=== PATIENT | female | born 1970 | race Caucasian/White ===

== ENCOUNTER 2017-09-25 06:34 | Emergency (ER) | payer BC ==
--- OUTSIDE RECORDS SUMMARY | 2017-09-25 06:36 | XMS REPORT | Clinical Summary ---
:1970 Author Organization [facility] Address [address] [place] [address] Phone Care Team Providers Name Role Phone Unavailable Primary Care Provider Unavailable Allergies No Known Allergies Current Medications Prescription Sig. Disp. Refills Start Date End Date Status buPROPion (WELLBUTRIN Take 150 mg by Active XL) 150 MG 24 hr mouth daily. tablet LINACLOTIDE (LINZESS Take 145 mcg by Active ORAL) mouth . omega-3 fatty Take 2 g by Active acids-fish oil mouth 2 (two) 340-1,000 mg Cap per times daily . capsule pregabalin (LYRICA) 75 Take 75 mg by Active MG capsule mouth 2 (two) times daily. diphenhydrAMINE Take 25 mg by Active (BENADRYL) 25 mg mouth nightly. tablet diazepam (VALIUM) 2 MG Take 2 mg by Active tablet mouth every 8 (eight) hours as needed for Anxiety. ALPRAZolam (XANAX) 0.5 Take 0.5 mg by Active MG tablet mouth every night as needed for Anxiety. cyclobenzaprine Take 10 mg by Active (FLEXERIL) 5 MG tablet mouth 2 (two) times daily as needed for Muscle spasms . CANAGLIFLOZIN Take 300 mg by Active (INVOKANA ORAL) mouth . fenofibrate (TRICOR) Take 145 mg by Active 145 MG tablet mouth daily. glyBURIDE-metFORMIN Take 4 tablets Active (GLUCOVANCE) 2.5-500 by mouth mg per tablet nightly. oxyCODONE-acetaminophe Take 2 tablets Active n (PERCOCET) 10-325 mg by mouth every 4 per tablet (four) hours as needed for Pain. rizatriptan (MAXALT) Take 5 mg by Active 10 MG tablet mouth once as needed for Headaches or Migraine Do NOT exceed thirty (30) mg in 24 hours. . zolpidem (AMBIEN) 10 Take 10 mg by Active mg tablet mouth every night as needed for Insomnia. calcium Take 1 tablet by Active carbonate-vitamin D2 mouth daily. 500 mg(1,250mg) -200 unit tablet clopidogrel (PLAVIX) Take 1 tablet 30 tablet 3 03/23/2016 03/23/2017 75 mg tablet (75 mg total) by mouth daily. Active Problems Problem Noted Date Chronic pain 03/20/2016 Back pain 03/20/2016 HTN (hypertension) 03/20/2016 Smoking 03/20/2016 Dyslipidemia 03/20/2016 Constipation 03/20/2016 Nausea 03/20/2016 STEMI (ST elevation myocardial infarction) ([facility]) 03/19/2016 Social History Tobacco Use Types Packs/Day Years Used Date Smoker, Current Status Unknown Cigarettes 1 15 Tobacco Cessation: Ready to Quit: No Sex Assigned at Date Recorded Not on file Last Filed Vital Signs Not on file Plan of Treatment Not on file Implants Implanted Type Area Setter Up Device Expiration Model / Identifier Date Serial / Lot Synergy Stents-C N/A: [employer] 12/07/2016 [id number] / Implanted: Qty: 1 on 03/19/2016 by Sabas Mcintosh MD [facility] Coronary SCIENTIFIC / [id number] Results VASCULAR DIAGRAM -SCAN (10/15/2016 2:40 PM)after 09/24/2016
[2017-09-25] MEDS ORDERED: FENTANYL CITR 100 MCG/2 ML ONE (07:07)
--- NOTE | 2017-09-25 07:18 | EDPHYS ---
Physician Documentation [facility] Name: Emilia Roman Age: 47 yrs Sex: Female : 1970 Arrival Date: 09/25/2017 Time: 06:36 Bed 17 Private MD: Rogelio Lyons ED Physician Daniel Chau HPI: 09/25 07:10 This 47 yrs old Female presents to ER via Ambulatory with complaints of calf snw muscle pain. 07:10 Onset: The symptoms/episode began/occurred suddenly, yesterday, and became persistent. snw Associated signs and symptoms: Pertinent positives: pain to right calf after playing tennis. Pt states she felt like someone hit her with a rock to the top of right calf as she turned. Modifying factors: The patient symptoms are alleviated by nothing. The patient has not experienced similar symptoms in the past. The patient has not recently seen a physician. hx of back surgery, Vincent still + bilaterally. Has OxyContin at home. 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 - bb Historical: - Allergies: 06:55 No Known Allergies; bb - Home Meds: 06:55 aspirin 81 mg Oral chew 1 tab once daily [Active]; Lipitor 20 mg Oral tab 1 tab once bb daily [Active]; Wellbutrin 75 mg Oral tab 1 tab daily [Active]; Plavix 75 mg Oral tab 1 tab once daily [Active]; fenofibrate 150 mg oral cap 1 cap once daily [Active]; Glucovance 2.5-500 mg Oral tab 1 tab daily [Active]; lisinopril 2.5 mg Oral tab 1 tab once daily [Active]; metoprolol tartrate 25 mg Oral tab [Active]; oxycodone 20 mg Oral TR12 1 tab four times a day [Active]; [place]-3 oral oral [Active]; Protonix 40 mg Oral TbEC 1 tab once daily [Active]; Maxalt 10 mg oral tab 1 tab as needed [Active]; Invokana 300 mg oral tab 1 tab once daily [Active]; Vit D daily [Active]; Stool Softener oral oral [Active]; - PMHx: 06:55 chronic back pain; Diabetes; Hyperlipidemia; Hypertension; Tachycardia; bb - PSHx: 06:55 Tubal ligation; Appendectomy; Cholecystectomy; back surgery; uterine ablation; Heart bb stents; - Immunization history:: Adult Immunizations up to date. - Social history:: Smoking status: Patient/guardian denies using tobacco, Patient/guardian denies using alcohol, street drugs, Smoking status: . - Ebola Screening: : Patient negative for fever greater than or equal to 101.5 degrees Fahrenheit, and additional compatible Ebola Virus Disease symptoms Patient denies exposure to infectious person No symptoms or risks identified at this time. ROS: 07:10 Constitutional: Negative for fever, chills, and weight loss, Eyes: Negative for injury, snw pain, redness, and discharge, ENT: Negative for injury, pain, and discharge, Neck: Negative for injury, pain, and swelling, Cardiovascular: Negative for chest pain, palpitations, and edema, Respiratory: Negative for shortness of breath, cough, wheezing, and pleuritic chest pain, Abdomen/GI: Negative for abdominal pain, nausea, vomiting, diarrhea, and constipation, Back: Negative for injury and pain, : Negative for injury, bleeding, discharge, and swelling, Skin: Negative for injury, rash, and discoloration, Neuro: Negative for headache, weakness, numbness, tingling, and seizure. 07:10 MS/extremity: Positive for pain, swelling, of the right calf. Exam: 07:04 Constitutional: This is a well developed, well nourished patient who is awake, alert, snw and in no acute distress. Head/Face: Normocephalic, atraumatic. Eyes: Pupils equal round and reactive to light, extra-ocular motions intact. Lids and lashes normal. Conjunctiva and sclera are non-icteric and not injected. Cornea within normal limits. Periorbital areas with no swelling, redness, or edema. ENT: Nares patent. No nasal discharge, no septal abnormalities noted. Tympanic membranes are normal and external auditory canals are clear. Oropharynx with no redness, swelling, or masses, exudates, or evidence of obstruction, uvula midline. Mucous membranes moist. Neck: Trachea midline, no thyromegaly or masses palpated, and no cervical lymphadenopathy. Supple, full range of motion without nuchal rigidity, or vertebral point tenderness. No Meningismus. Chest/axilla: Normal chest wall appearance and motion. Nontender with no deformity. No lesions are appreciated. Cardiovascular: Regular rate and rhythm with a normal S1 and S2. No gallops, murmurs, or rubs. Normal PMI, no JVD. No pulse deficits. Respiratory: Lungs have equal breath sounds bilaterally, clear to auscultation and percussion. No rales, rhonchi or wheezes noted. No increased work of breathing, no retractions or nasal flaring. Abdomen/GI: Soft, non-tender, with normal bowel sounds. No distension or tympany. No guarding or rebound. No evidence of tenderness throughout. Back: No spinal tenderness. No costovertebral tenderness. Full range of motion. Skin: Warm, dry with normal turgor. Normal color with no rashes, no lesions, and no evidence of cellulitis. Neuro: Awake and alert, GCS 15, oriented to person, place, time, and situation. Cranial nerves II-XII grossly intact. Motor strength 5/5 in all extremities. Sensory grossly intact. Cerebellar exam normal. Normal gait. 07:04 Musculoskeletal/extremity: Extremities: grossly normal except: noted in the right calf: pain, tenderness, ROM: intact in all extremities, Circulation is intact in all extremities. Sensation intact. Compartment Syndrome exam of affected extremity: is normal. Calves: are tender, pt states she felt as if someone hit her with a rock to her calf. Vital Signs: 06:55 BP 129 / 90; Pulse 86; Resp 18 S; Temp 97.9(O); Pulse Ox 98% on R/A; Weight 79.38 kg bb (R); Height 5 ft. 9 in. (175.26 cm) (R); Pain 6/10; 07:30 BP 110 / 82; Pulse 78; Resp 16; Pulse Ox 98% on R/A; Pain 5/10; em 06:55 Body Mass Index 25.84 (79.38 kg, 175.26 cm) bb MDM: 06:48 Patient medically screened. snw 07:21 Data reviewed: vital signs, nurses notes. Data interpreted: Pulse oximetry: on room air snw is 98 %. Interpretation: normal. Counseling: I had a detailed discussion with the patient and/or guardian regarding: the historical points, exam findings, and any diagnostic results supporting the discharge/admit diagnosis, the presence of at least one elevated blood pressure reading (>120/80) during this emergency department visit, the need for outpatient follow up, to return to the emergency department if symptoms worsen or persist or if there are any questions or concerns that arise at home. Special discussion: I have referred the patient to see his PCP for further evaluation of high blood pressure. Based on the history and exam findings, there is no indication for further emergent testing or inpatient evaluation. I discussed with the patient/guardian the need to see the orthopedic surgeon for further evaluation of the symptoms. I discussed with the patient/guardian the need to see the primary care provider for further evaluation of the symptoms. 09/25 06:58 Order name: Greg Wrap; Complete Time: 07:40 snw 09/25 06:58 Order name: Knee Immobilizer; Complete Time: 07:40 snw 09/25 07:19 Order name: Crutches; Complete Time: 07:40 snw 09/25 07:19 Order name: Crutch Training; Complete Time: 07:40 snw Administered Medications: 07:16 Drug: fentaNYL (PF) 50 mcg Route: IM; Site: left deltoid; em 07:40 Follow up: Response: No adverse reaction; Pain is decreased em Disposition: 20:33 Co-signature as Attending Physician, Daniel Chau MD. rn Disposition: 09/25/17 07:18 Discharged to Home. Impression: Muscle spasm of calf, Achilles tendinitis, right leg. - Condition is Stable. - Discharge Instructions: Elastic Bandage and RICE, Achilles Tendinitis, Partial (Incomplete) Achilles Tendon Rupture, Crutch Use, Muscle Cramps and Spasms, Heat Therapy. - Prescriptions for Mobic 7.5 mg Oral Tablet - take 1 tablet by ORAL route once daily take with food; 20 tablet. - Medication Reconciliation Form, Thank You Letter, Antibiotic Education, Prescription Opioid Use form. - Follow up: Rogelio Lyons MD; When: 1 - 2 days; Reason: Recheck today's complaints, Continuance of care, Re-evaluation by your physician. Follow up: Gregory Tucker MD; When: 2 - 3 days; Reason: Recheck today's complaints, Continuance of care. Signatures: Consuelo Nguyen, FRETTED STRING INSTRUMENT REPAIRER-C FRETTED STRING INSTRUMENT REPAIRER-Csnw Ac Castorena, ASSISTANT PROFESSOR OF ARCHAEOLOGY ASSISTANT PROFESSOR OF ARCHAEOLOGY em Serenity Olivo, RN MARCIO bb Chau, Daniel, MD MD rn Sheehan, Crissy, RN RN bs1 Corrections: (The following items were deleted from the chart) 07:47 07:18 09/25/2017 07:18 Discharged to Home. Impression: Muscle spasm of calf; Achilles em tendinitis, right leg. Condition is Stable. Forms are Medication Reconciliation Form, Thank You Letter, Antibiotic Education, Prescription Opioid Use. Follow up: Rogelio Lyons; When: 1 - 2 days; Reason: Recheck today's complaints, Continuance of care, Re-evaluation by your physician. Follow up: Gregory Tucker; When: 2 - 3 days; Reason: Recheck today's complaints, Continuance of care. snw
--- NOTE | 2017-09-25 07:18 | ER ---
Nurse's Notes [facility] Name: Emilia Roman Age: 47 yrs Sex: Female : 1970 Arrival Date: 09/25/2017 Time: 06:36 Bed 17 Private MD: Rogelio Lyons Diagnosis: Muscle spasm of calf;Achilles tendinitis, right leg Presentation: 09/25 06:47 Presenting complaint: Patient states: she was playing tennis with her last bb night and thinks she tore her right calf muscle, at the time it felt like someone hit her in the calf, she is having pain to right calf 09/26. Transition of care: patient was not received from another setting of care. Onset of symptoms was September 24, 2017. Risk Assessment: Do you want to hurt yourself or someone else? Patient reports no desire to harm self or others. Initial Sepsis Screen: Does the patient meet any 2 criteria? No. Patient's initial sepsis screen is negative. Does the patient have a suspected source of infection? No. Patient's initial sepsis screen is negative. Care prior to arrival: None. 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 - bb Historical: - Allergies: 06:55 No Known Allergies; bb - Home Meds: 06:55 aspirin 81 mg Oral chew 1 tab once daily [Active]; Lipitor 20 mg Oral tab 1 tab once bb daily [Active]; Wellbutrin 75 mg Oral tab 1 tab daily [Active]; Plavix 75 mg Oral tab 1 tab once daily [Active]; fenofibrate 150 mg oral cap 1 cap once daily [Active]; Glucovance 2.5-500 mg Oral tab 1 tab daily [Active]; lisinopril 2.5 mg Oral tab 1 tab once daily [Active]; metoprolol tartrate 25 mg Oral tab [Active]; oxycodone 20 mg Oral TR12 1 tab four times a day [Active]; [place]-3 oral oral [Active]; Protonix 40 mg Oral TbEC 1 tab once daily [Active]; Maxalt 10 mg oral tab 1 tab as needed [Active]; Invokana 300 mg oral tab 1 tab once daily [Active]; Vit D daily [Active]; Stool Softener oral oral [Active]; - PMHx: 06:55 chronic back pain; Diabetes; Hyperlipidemia; Hypertension; Tachycardia; bb - PSHx: 06:55 Tubal ligation; Appendectomy; Cholecystectomy; back surgery; uterine ablation; Heart bb stents; - Immunization history:: Adult Immunizations up to date. - Social history:: Smoking status: Patient/guardian denies using tobacco, Patient/guardian denies using alcohol, street drugs, Smoking status: . - Ebola Screening: : Patient negative for fever greater than or equal to 101.5 degrees Fahrenheit, and additional compatible Ebola Virus Disease symptoms Patient denies exposure to infectious person No symptoms or risks identified at this time. Screenin:50 Abuse screen: Denies threats or abuse. Denies injuries from another. Nutritional bs1 screening: No deficits noted. Tuberculosis screening: No symptoms or risk factors identified. Fall Risk None identified. Assessment: 06:48 General: Appears in no apparent distress. uncomfortable, Behavior is calm, cooperative, bs1 appropriate for age. Pain: Complains of pain in right calf Pain does not radiate. Neuro: Level of Consciousness is awake, alert, obeys commands, Oriented to person, place, time, situation, Appropriate for age. Cardiovascular: Denies chest pain, shortness of breath, Heart tones S1 S2 present Capillary refill < 3 seconds Patient's skin is warm and dry. Respiratory: Airway is patent Trachea midline Respiratory effort is even, unlabored, Respiratory pattern is regular, symmetrical, Breath sounds are clear bilaterally. GI: No signs and/or symptoms were reported involving the gastrointestinal system. : No signs and/or symptoms were reported regarding the genitourinary system. EENT: No signs and/or symptoms were reported regarding the EENT system. Derm: No signs and/or symptoms reported regarding the dermatologic system. Skin is intact, Skin is pink, warm \T\ dry. normal. Musculoskeletal: Circulation, motion, and sensation intact. Capillary refill < 3 seconds, Range of motion: limited in right leg Reports pain in right cald/muscle pain. 07:05 General: Appears in no apparent distress. uncomfortable, Behavior is calm, cooperative. em Pain: Complains of pain in right calf. Neuro: Level of Consciousness is awake, alert, obeys commands, Oriented to person, place, time, situation. Cardiovascular: Capillary refill < 3 seconds Patient's skin is warm and dry. Respiratory: Airway is patent Respiratory effort is even, unlabored, Respiratory pattern is regular, symmetrical. Derm: Skin is intact, Skin is pink, warm \T\ dry. Musculoskeletal: Capillary refill < 3 seconds, Range of motion: limited in right ankle Tenderness present in right calf Reports pain in right calf. 07:15 Reassessment: Patient appears in no apparent distress at this time. I agree with above iw assessment by Ac Castorena LVN. Vital Signs: 06:55 BP 129 / 90; Pulse 86; Resp 18 S; Temp 97.9(O); Pulse Ox 98% on R/A; Weight 79.38 kg bb (R); Height 5 ft. 9 in. (175.26 cm) (R); Pain 6/10; 07:30 BP 110 / 82; Pulse 78; Resp 16; Pulse Ox 98% on R/A; Pain 5/10; em 06:55 Body Mass Index 25.84 (79.38 kg, 175.26 cm) ED Course: 06:36 Patient arrived in ED. am2 06:36 Rogelio Lyons MD is Private Physician. am2 06:48 Crissy Sheehan, RN is Primary Nurse. bs1 06:48 Consuelo Nguyen FNP-C [facility]. snw 06:48 Daniel Chau MD is Attending Physician. snw 06:49 Triage completed. bb 06:50 Patient has correct armband on for positive identification. Bed in low position. Call bs1 light in reach. Side rails up X 1. Pulse ox on. NIBP on. 06:55 Patient placed in an exam room, on a stretcher, on pulse oximetry. Family accompanied bb patient. 07:03 No provider procedures requiring assistance completed. Patient did not have IV access em during this emergency room visit. 07:13 Rogelio Lyons MD is Referral Physician. snw 07:13 Gregory Tucker MD is Referral Physician. snw 07:30 Crutch training done. Greg wrap to right calf Knee immobilizer applied on right knee. em Administered Medications: 07:16 Drug: fentaNYL (PF) 50 mcg Route: IM; Site: left deltoid; em 07:40 Follow up: Response: No adverse reaction; Pain is decreased em Outcome: 07:18 Discharge ordered by . snw 07:45 Discharged to home with crutches, with family. em 07:45 Condition: good 07:45 Discharge instructions given to patient, family, Instructed on discharge instructions, follow up and referral plans. medication usage, Demonstrated understanding of instructions, follow-up care, medications. 07:45 Instructed on crutch walking. 07:47 Patient left the ED. em Signatures: Consuelo Nguyen, TUNNEL MINER-C TUNNEL MINER-Csnw Ac Castorena, SHEETER WAXER OPERATOR SHEETER WAXER OPERATOR em Serenity Olivo, RN RN Karin Robles, RN RN Gaby Houston am2 Crissy Sheehan RN RN bs1
[2017-09-25 08:07] VITALS: TEMP 97.9; O2SAT 98
[2017-09-25 08:09] VITALS: BP 110/82
== END 2017-09-25 07:47 | disposition home or self-care (01) ==
LOC: ER 06:34
DX: M62.831 Muscle spasm of calf (principal); M76.61 Achilles tendinitis, right leg; E11.9 Type 2 diabetes mellitus without complications; E78.5 Hyperlipidemia, unspecified; I10 Essential (primary) hypertension
CPT/HCPCS: 96372; 99283; J3010

== ENCOUNTER 2020-01-24 06:05 | Day surgery (SDC) | payer BC ==
[2020-01-18 10:44] LABS: Absolute Lymphocytes (CBC) 1.5 K/uL (0.7-4.9); Basophils % 1.2 % (0-1.3); Hematocrit 43.3 % (36.0-45.0); Lymphocytes % 34.4 % (15.3-44.8); MPV 7.1 fL (7.6-11.3); RBC Red Blood Cell Count 4.79 M/uL (3.86-4.86)
[2020-01-18 10:50] LABS: Protime INR 0.9
--- NOTE | 2020-01-19 11:01 | RAD REPORT ---
EXAM DESCRIPTION: RAD - Chest Pa And Lat (2 Views) - 01/18/2020 10:19 pm CLINICAL HISTORY: pre op, pending orthopedic surgery COMPARISON: Portable March 2016 TECHNIQUE: Frontal and lateral views of the chest were obtained. FINDINGS: The lungs are clear. Heart size is normal and central vasculature is within normal limit s. No pleural effusion or pneumothorax seen. No acute bony finding noted. No aortic abnormality. IMPRESSION: No acute cardiopulmonary process.
--- NOTE | 2020-01-20 08:22 | EKG ---
Test Date: 2020-01-18 Test Time: 10:40:01 Wage Analyst: TG MEASUREMENT RESULTS: Intervals: Rate: 79 ND: 140 QRSD: 86 QT: 394 QTc: 451 [place]: P: 147 ND: 140 QRS: 209 T: 137 INTERPRETIVE STATEMENTS: Suspect arm lead reversal, interpretation assumes no reversal Unusual P axis, possible ectopic atrial rhythm Right superior axis deviation Pulmonary disease pattern Abnormal ECG Compared to ECG 03/19/2016 09:15:01 Right superior axis now present Accelerated junctional rhythm no longer present ST (T wave) deviation no longer present Myocardial infarct finding no longer present Electronically Signed On 01-20-20 08:19:36 CDT by William Childs
--- NOTE | 2020-01-24 06:00 | EKG ---
Test Date: 2020-01-22 Test Time: 14:56:35 Cnc Manufacturing Engineer: ANASTASIA MEASUREMENT RESULTS: Intervals: Rate: 90 LA: 142 QRSD: 82 QT: 364 QTc: 445 [place]: P: 49 LA: 142 QRS: -9 T: 60 INTERPRETIVE STATEMENTS: Normal sinus rhythm Cannot rule out Anterior infarct, age undetermined Abnormal ECG Compared to ECG 01/18/2020 10:40:01 Myocardial infarct finding now present Right superior axis no longer present Electronically Signed On 01-24-20 05:56:19 CDT by William Childs
[2020-01-24 06:28] LABS: Specific Gravity 1.015 (1.005-1.030)
[2020-01-24] MEDS ORDERED: CEFAZOLIN/SWI 1gm 1 GM/10 ML SYR ONE (06:34)
[2020-01-24] MEDS ORDERED: NA CHLORIDE 0.9% 1,000 ML ONE ×2 (06:34→08:50)
[2020-01-24] MEDS ORDERED: propofoL 200 MG/20 ML VIAL IV ONE (06:41)
[2020-01-24] MEDS ORDERED: FENTANYL CITR 100 MCG/2 ML ONE (06:41)
[2020-01-24] MEDS ORDERED: LIDOCAINE 2% MPF 5 ML VIAL ONE ×2 (06:41→06:55)
[2020-01-24] MEDS ORDERED: ROCURONIUM 50 MG/5 ML VIAL IV ONE (06:41)
[2020-01-24] MEDS ORDERED: ONDANSETRON 4 MG/2 ML VIAL ONE ×2 (06:41→09:36)
[2020-01-24] MEDS ORDERED: MIDAZOLAM HCL 2 MG/2 ML INJ ONE (06:41)
[2020-01-24] MEDS ORDERED: dexAMETHasone 4 MG/ML VIAL ONE (06:48)
[2020-01-24] MEDS ORDERED: ROPLVACAINE HCL 40 ML ONE (06:49)
[2020-01-24] MEDS ORDERED: EPINEPHRINE/PF 1 MG/ML AMP ONE (07:09)
[2020-01-24] MEDS ORDERED: Phenylephrine HCl 10 MG/ML 1 ML VIAL ONE (08:00)
[2020-01-24] MEDS ORDERED: EPHEDRINE SULF 50 MG/ML VIAL ONE (08:39)
[2020-01-24] MEDS ORDERED: KETOROLAC 30 MG/ML INJ ONE (09:00)
--- NOTE | 2020-01-24 09:17 | P.BOP ---
Preoperative diagnosis: right shoulder rotator cuff tear, impingement syndrome Postoperative diagnosis: same Primary procedure: right shoulder arthroscopic rotator cuff repair Secondary procedure: right shoulder arthroscopic subacromial decompression Metalsmith Helper: NONE,NONE Estimated blood loss: <10 cc Specimen: none Findings: see dictation Anesthesia: General Complications: None Implants: 1- 4.75 mm Arthrex Swivelock Fluids & blood products: per anesthesia record Transferred to: Recovery Room Condition: Good
--- NOTE | 2020-01-24 09:30 | RAD REPORT ---
EXAM DESCRIPTION: RAD - Shoulder 1 View - 01/24/2020 9:23 am CLINICAL HISTORY: Right shoulder surgery FINDINGS: Frontal view of the right shoulder was obtained. No fracture or dislocation is seen. Posts urgical changes involve the right shoulder
[2020-01-24 10:47] VITALS: BP 109/70; TEMP 97.1; O2SAT 95
--- NOTE | 2020-01-25 08:44 | OP ---
Date of Procedure: 01/24/2020 Surgeon: Mukul Powell MD Preoperative Diagnoses: 1. Right shoulder rotator cuff tear. 2. Right shoulder impingement syndrome. Postoperative Diagnoses: 1. Right shoulder rotator cuff tear. 2. Right shoulder impingement syndrome. Procedure Performed: 1. Right shoulder arthroscopic rotator cuff repair. 2. Right shoulder arthroscopic decompression. Anesthesia: General endotracheal. Fluids: Per Anesthesia record. Estimated Blood Loss: Less than 10 cc. Implant: One 4.75 mm Arthrex SwiveLock. Complications: None. Indications For Procedure: Emilia is a 49-year-old female who presented to my clinic signs and symptoms and MRI finding consistent with right shoulder rotator cuff tear as well as impingement syndrome. I discussed with the patient at length risks and benefits associated with operative and nonoperative treatment. She expressed understanding. With her pain symptoms and MRI findings I recommended operative treatment. She expressed understanding and elected to proceed with operative treatment. Description Of Procedure: After informed consent was obtained, the patient was identified in the preoperative holding area. The right upper extremity was marked. The patient was then taken to PACU where she underwent an interscalene block to her right upper extremity, performed by Anesthesia. She was then taken back to the operating room, transferred to the operating table in a supine fashion and placed under general endotracheal anesthesia. She was then placed in a beach chair position with her extremities well padded. The right upper extremity was then prepped and draped in usual sterile fashion and time-out was initiated. The correct patient and procedure were confirmed and identified. The patient did receive her preoperative prophylactic antibiotics. The right upper extremity was then examined. The patient had full range of motion of her right shoulder with no instability noted. A spinal needle was introduced via the posterior portal position and the shoulder was injected with 30 cc of normal saline to distend the capsule. Posterior portal was then created and arthroscope was brought in via the posterior portal position under direct visualization and anterior portal was created and cannula was placed. A diagnostic arthroscopy was performed. The patient was noted to have an intact subscapularis. Superior labrum was also found to be intact without significant fraying or tear. Biceps anchor was intact without any significant fraying or tear. The biceps tendon was brought into the joint with a probe and there was no significant fraying or tearing noted of the biceps tendon. The anterior- posterior labrum were found stable and intact. There were no loose bodies within the axillary pouch. No significant chondromalacia noted on the humeral head and glenoid surface. The patient was noted to have some fraying of the undersurface of the supraspinatus. Lateral portal was created. Obturator was brought into the joint consistent with a full thickness rotator cuff tear. An arthroscopic shaver was then used to debride the undersurface of the rotator cuff tear as well as the greater tuberosity. Next, the arthroscope was brought into subacromial space the patient underwent subacromial bursectomy. There was significant inflammation noted in the bursa. The tear was identified on the bursal side and the tear was then debrided using an arthroscopic shaver as well as the greater tuberosity. A cannula was placed via the lateral portal and a FiberTape suture was passed through the rotator cuff tear in inverted horizontal mattress type fashion using Captimo Fast-Fix suture passer. The suture length was then brought through a 4.75 mm SwiveLock and this was fixed along the lateral aspect of the greater tuberosity with overall reduction for tear of the greater tuberosity. Remaining suture limbs were then cut. Next, attention was taken to subacromial decompression. The patient was noted to have some fraying of the coracoacromial ligament. Undersurface of the acromion was debrided using an arthroscopic radiofrequency ablator and acromioplasty was performed using an arthroscopic lonny. Arthroscopic instruments were then removed and the wounds were then irrigated thoroughly with normal saline. Portals were approximated with 3-0 Monocryl. Sterile dressings were applied. The patient was placed in a shoulder immobilizer back condition, awakened, and transferred to PACU in stable condition. Postoperative Plan: She would be ysj-jrozza-hdzpwfn in the right upper extremity. She will follow up in next week for wound check and dressing changing. Physical Therapy will be consulted 2 weeks postoperatively to begin her medium rotator cuff repair protocol. LYNDA/AKILAH Voice ID: [id number] Report ID: [id number] DAVID
--- OUTSIDE RECORDS SUMMARY | 2020-01-25 17:25 | XMS REPORT | Clinical Summary ---
:1970 Author Organization [facility] Address [address] [place] [address] Care Team Providers Name Role Phone Rogelio Lyons MD Primary Care Provider Allergies No Known Allergies Medications Medication Sig Dispensed Refills Start Date End Date Status buPROPion (WELLBUTRIN Take 150 mg by 0 Active XL) 150 MG 24 hr tablet mouth daily. LINACLOTIDE (LINZESS Take 145 mcg by 0 Active ORAL) mouth . omega-3 fatty Take 2 g by mouth 0 Active acids-fish oil 2 (two) times 340-1,000 mg Cap per daily . capsule pregabalin (LYRICA) 75 Take 75 mg by 0 Active MG capsule mouth 2 (two) times daily. diphenhydrAMINE Take 25 mg by 0 Active (BENADRYL) 25 mg tablet mouth nightly. diazepam (VALIUM) 2 MG Take 2 mg by 0 Active tablet mouth every 8 (eight) hours as needed for Anxiety. ALPRAZolam (XANAX) 0.5 Take 0.5 mg by 0 Active MG tablet mouth every night as needed for Anxiety. cyclobenzaprine Take 10 mg by 0 Active (FLEXERIL) 5 MG tablet mouth 2 (two) times daily as needed for Muscle spasms . CANAGLIFLOZIN (INVOKANA Take 300 mg by 0 Active ORAL) mouth . fenofibrate (TRICOR) Take 145 mg by 0 Active 145 MG tablet mouth daily. glyBURIDE-metFORMIN Take 4 tablets by 0 Active (GLUCOVANCE) 2.5-500 mg mouth nightly. per tablet oxyCODONE-acetaminophen Take 2 tablets by 0 Active (PERCOCET) 10-325 mg mouth every 4 per tablet (four) hours as needed for Pain. rizatriptan (MAXALT) 10 Take 5 mg by 0 Active MG tablet mouth once as needed for Headaches or Migraine Do NOT exceed thirty (30) mg in 24 hours. . zolpidem (AMBIEN) 10 mg Take 10 mg by 0 Active tablet mouth every night as needed for Insomnia. calcium Take 1 tablet by 0 Act milagros carbonate-vitamin D2 mouth daily. 500 mg(1,250mg) -200 unit tablet Active Problems Problem Noted Date Chronic pain 03/20/2016 Back pain 03/20/2016 HTN (hypertension) 03/20/2016 Smoking 03/20/2016 Dyslipidemia 03/20/2016 Constipation 03/20/2016 Nausea 03/20/2016 STEMI (ST elevation myocardial infarction) 03/19/2016 Social History Tobacco Use Types Packs/Day Years Used Date Smoker, Current Status Unknown Cigarettes 1 15 Tobacco Cessation: Ready to Quit: No Sex Assigned at Date Recorded Not on file Job Start Date Occupation Industry Not on file Not on file Not on file Travel History Travel Start Travel End No recent travel history available. Last Filed Vital Signs Not on file Plan of Treatment Not on file Implants Implanted Type Area Plastic Shaper Device Shelf Model / Identifier Expiration Serial / Date Lot Synergy Stents-C N/A: BOSTON 12/07/2016 [id number] / Implanted: Qty: 1 on 03/19/2016 by Sabas Mcintosh MD oronary [employer] / [id number] Results Not on fileafter 01/23/2019 Insurance Payer Benefit Plan / Subscriber ID Type Phone Address Group BLUE CROSS/BLUE BCBS PPO POS EPO xxxxxxxxxxxx PPO [phone] [address] [place] [address] Advance Directives For more information, please contact:[place] [address] [place], [place] [phone] Code Status Date Activated Date Inactivated Comments Full Code 03/19/2016 1:20 PM 03/23/2016 4:45 PM This code status was determined by: Patient Full Code 03/19/2016 1:19 PM 03/19/2016 1:20 PM This code status was determined by: Patient
--- OUTSIDE RECORDS SUMMARY | 2020-01-25 17:26 | XMS REPORT ---
:1970 Author Organization [employer] Care Team Providers Name Role Phone Mukul Powell Provider Role Unavailable Allergies, Adverse Reactions, Alerts Substance Reaction Event Type N.K.D.A. Info Not Available Non Drug Allergy Problems Problem Type Condition Code Onset Dates Condition Statu s Assessment Pain, joint, shoulder, right M25.511 Active Problem Nontraumatic tear of right rotator M75.101 Active cuff, unspecified tear extent Assessment Nontraumatic tear of right rotator M75.101 Active cuff, unspecified tear extent Assessment Bicipital tendinitis of right M75.21 Active shoulder Medications Medication Code Code Instructions Start End Date Status Dosage System Date BuPROPion HCl [facility] 32436-33 Active not defin ed 33-[address] [facility] 34413-47 Active not defined 89-[address] [facility] 22884-49 Active not defined 127 Benadryl NDC 0 Active not defined Cyclobenzaprine HCl NDC 0 Active not defined Lisinopril [facility] 37190-10 Active not defined 01-01 Ozempic (1 MG/DOSE) [facility] 14434-92 Active not defined 36-02 Ryxgu-9-rbgq Ethyl [facility] 47902-41 Active not defined Esters - Aspir-81 NDC 0 Active not defined Oxycodone-Acetamino [facility] 37309-41 Active not defined phen 83-[address] [facility] 04640-17 Active not defined Bisulfate 67-[address] [facility] 12990-83 Active not defined Succinate ER 98-05 [place] [address]-61 Active not defined 23-[address] [facility] 88304-37 Active not defi leyla [address] [facility] 74422-56 Active not defined 71-[address] [facility] 06485-34 Active not define d Calcium 57-98 [place] [address]-71 Active not d efined 50-14 [place] [address]-50 Active not defined 03-40 Glucovance NDC 0 Active not defined Rizatriptan [facility] 55187-52 Active not defined Benzoate 69-81 Results No Known Results Summary Purpose [employer] Submission
--- OUTSIDE RECORDS SUMMARY | 2020-01-25 17:26 | XMS REPORT ---
:1970 Author Organization [facility] Address [address] [place] [address] Care Team Providers Name Role Phone Andre Unavailable [phone] PROBLEMS Type Condition ICD9-CM BIP45-RD Onset Condition SNOMED Code Notes Code Code Dates Status Problem Nontraumatic M75.101 Active 393401223 tear of right rotator cuff, unspecified tear extent ALLERGIES No Known Allergies ENCOUNTERS from 1970 to 2020-01-22 Encounter Location Date Provider Diagnosis [facility] [address] Jan, Mukul Powell Pain , joint, [facility] [address] [place], right [place], [place] M25.511 ; [address] [address]umatic te ar of right rotator c uff, unspecified tea r extent M75.101 and Bicipital tendi nitis of right should er M75.21 IMMUNIZATIONS No Information SOCIAL HISTORY Tobacco Use: Social History Observation Description Date Details (start date - stop date) Former Smoker Sex Assigned At : Social History Observation Description Sex Assigned At Unknown Alcohol Screen Question Answer Notes Did you have a drink containing alcohol in the past Yes year? Points 1 Interpretation Negative How often did you have 6 or more drinks on one Never (0 poin ts) occasion in the past year? How many drinks did you have on a typical day when 1 or 2 (0 points) you were drinking in the past year? How often did you have a drink containing alcohol in Monthly or less (1 point) the past year? Tobacco Use/Smoking Question Answer Notes Are you a former smoker Additional Findings: Tobacco Non-User Current non-smoker REASON FOR REFERRAL No Information VITAL SIGNS Height 69 in Jan, Weight 169 lbs Jan, Temperature 97.5 degrees Fahrenheit Jan, BMI 24.95 kg/m2 Jan, Blood pressure systolic 126 mm Hg Jan, Blood pressure diastolic 84 mm Hg Jan, MEDICATIONS Medication SIG (Take, Route, Frequency, Start Date End Date Status Duration) Cyclobenzaprine HCl Not-Taki ng Clopidogrel Bisulfate Not-Ta chetan Vitamin D Active Tricor Active Ciprofloxacin HCl Not-Taking Iwhwa-9-hvrx Ethyl Esters No t-Taking Aspir-81 Active Atorvastatin Calcium Active Plavix Active Stool Softener Active Ozempic (1 MG/DOSE) Active Glucovance Active Rizatriptan Benzoate Active Protonix Active Oxycodone-Acetaminophen Acti ve Benadryl Active Vascepa Active Lisinopril Active BuPROPion HCl Active Metoprolol Succinate ER Acti ve PROCEDURES No Information RESULTS No Results REASON FOR VISIT F/U RT SHOULDER PAIN MEDICAL (GENERAL) HISTORY Type Description Date Medical History dm 2 Medical History migranes Medical History chronic back pain Medical History moods Medical History HLD Medical History HTN Medical History GERD Medical History sinus allergies Medical History hx heart attack Medical History sees pain management Surgical History appendectomy Surgical History lower back sx Surgical History gall bladder Surgical History stent Surgical History hernia Goals Section No Information Health Concerns No Information MEDICAL EQUIPMENT No Information MENTAL STATUS No Information FUNCTIONAL STATUS No Information ASSESSMENTS Encounter Date Diagnosis Notes Jan, Bicipital tendinitis of right shoulder ( ICD-10 - M75.21) Jan, Nontraumatic tear of right rotator cuff, unspecified tear extent (ICD-10 - M75.101) Jan, Pain, joint, shoulder, right (ICD-10 - M 25.511) PLAN OF TREATMENT Treatment Notes Assessment Notes Clinical Notes Nontraumatic tear of right rotator I discussed with the annabelle ent at cuff, unspecified tear extent length her diagnosis and treat ment plan and she expressed understanding. Given her continued pain, difficulty with ADLs, lack of improvement with corticosteroid injections and acute rotator cuff tear, I recommend right shoulder arthroscopic rotator cuff repair with possible subacromial decompression and biceps tenodesis. I discussed with the patient risks and benefits associated with the procedure at length as well as postoperative rehabilitation and she expressed understanding. We discussed postop pain control and she will be in touch with her pain management physician. All questions were answered Next Appt Details f/u 1 week postop Reason: Provider Name:Mukul Powell, 2020-01-29 0 9:00:00 AM, [address], [place], [address], Insurance Providers Payer Name Payer Payer Insured Name Patient Coverage Covera ge End Address Phone Relationship to Start Date Yannick e Insured [employer] [phone] Emilia Roman and Korey [id number] [place] [phone]
--- OUTSIDE RECORDS SUMMARY | 2020-01-25 17:26 | XMS REPORT ---
:1970 Author Organization [facility] Address [address] [place] [address] Care Team Providers Name Role Phone Andre Unavailable [phone] PROBLEMS Type Condition ICD9-CM APY84-FO Onset Condition SNOMED Code Notes Code Code Dates Status Problem Nontraumatic M75.101 Active 214959715 tear of right rotator cuff, unspecified tear extent ALLERGIES No Known Allergies ENCOUNTERS from 1970 to 2020-01-10 Encounter Location Date Provider Diagnosis [facility] [address] Dec, [facility] [place] [address] IMMUNIZATIONS No Information SOCIAL HISTORY Tobacco Use: [...] REASON FOR REFERRAL No Information VITAL SIGNS No information MEDICATIONS Medication SIG (Take, Route, Frequency, Start Date End Date Status Duration) BuPROPion HCl Active Gokyi-9-qdjv Ethyl Esters No t-Taking Lisinopril Active Ozempic (1 MG/DOSE) Active Vitamin D Active Ciprofloxacin HCl Not-Taking Metoprolol Succinate ER Acti ve Atorvastatin Calcium Active Plavix Active Aspir-81 Active Cyclobenzaprine HCl Not-Taki ng Benadryl Active Stool Softener Active Tricor Active Clopidogrel Bisulfate Not-Ta chetan Glucovance Active Protonix Active Rizatriptan Benzoate Active Oxycodone-Acetaminophen Acti ve Vascepa Active PROCEDURES No Information RESULTS No Results REASON FOR VISIT Surgery info MEDICAL (GENERAL) HISTORY Type Description Date Medical [...] No Information FUNCTIONAL STATUS No Information ASSESSMENTS No Information PLAN OF TREATMENT Next Appt Details Provider Name:Mukul Powell, 2020-01-18 0 8:30:00 AM, [address], [place], [address], Provider Name:Mukul Powell 2020-01-29 0 9:00:00 AM, [address], [place], [address], Insurance Providers Payer Name Payer Payer Insured Name Patient Coverage Covera End Address Phone Relationship to Start Date Yannick e Insured [employer] [phone] Emilia Roman and Blue [id number] [place] [phone]
--- OUTSIDE RECORDS SUMMARY | 2020-01-25 17:26 | XMS REPORT ---
[...] rotator M75.101 Active cuff, unspecified tear extent Medications Medication Code Code Instructions Start End Date Status Dosage System Date Plavix [facility] 36151-30 Active not defined 78-30 Stool Softener [facility] 09419-08 Active not defi leyla 866 Glucovance ND 0 Active not defined Aspir-81 NDC 0 Active not defined Ciprofloxacin HCl [facility] 14209-53 Active not d efined 50-[address] [facility] 61380-62 Active not defined Succinate ER 98-05 Ozempic (1 MG/DOSE) [facility] 60922-60 Active not defined 36-02 Csaxr-4-karv Ethyl [facility] 02681-92 Active not defined Esters 01-89 Benadryl ND 0 Active not defined Clopidogrel [facility] 15208-88 Active not defined Bisulfate 67-07 Oxycodone-Acetamino [facility] 81025-38 Active not defined phen 83-[address] [facility] 71655-34 Active not defined 01-[address] [facility] 16046-67 Active not defined 23-51 [place] [address]-50 Active not defin ed 33-01 [place] [address]-02 Active not defined 89-[address] [facility] 08669-35 Active not defined Benzoate 69-81 Cyclobenzaprine HCl NDC 0 [place] [address]-85 Active not defined 03-[place] [address]-35 Active not defined 127 [place] [address]-21 Active not define d Calcium 57-98 Results No Known Results Summary Purpose [employer]Works Submission
--- OUTSIDE RECORDS SUMMARY | 2020-01-25 17:26 | XMS REPORT ---
:1970 Author Organization [employer] Care Team Providers Name Role Phone Mukul Powell Provider Role Unavailable Allergies No Known Allergies Problems Problem Type Condition Code Onset Dates Condition Statu s Problem Nontraumatic tear of right rotator M75.101 Active cuff, unspecified tear extent Medications No Known Medications Results No Known Results Summary Purpose [employer] Submission
--- OUTSIDE RECORDS SUMMARY | 2020-01-25 17:26 | XMS REPORT ---
:1970 Author Organization [facility] Address [address] [place] [address] Care Team Providers Name Role Phone Andre Unavailable [phone] PROBLEMS Type Condition ICD9-CM OBM64-FN Onset Condition SNOMED Code Notes Code Code Dates Status Problem Nontraumatic M75.101 Active 636484242 tear of right rotator cuff, unspecified tear extent ALLERGIES No Known Allergies ENCOUNTERS from 1970 to 2020-01-23 Encounter Location Date Provider Diagnosis [facility] [address] Jan, Mukul Powell Pre- op testing [facility] [address] [place], Z[address] [facility] [address] IMMUNIZATIONS No Information SOCIAL HISTORY Tobacco Use: [...] D Active Tricor Active Ciprofloxacin HCl Not-Taking Ukxds-6-ybus Ethyl Esters No t-Taking Aspir-81 Active Atorvastatin Calcium Active Plavix Active Stool Softener Active Ozempic (1 MG/DOSE) Active Glucovance Active Rizatriptan Benzoate Active Protonix Active Oxycodone-Acetaminophen Acti ve Benadryl Active Vascepa Active Lisinopril Active BuPROPion HCl Active Metoprolol Succinate ER Acti ve PROCEDURES No Information RESULTS No Results REASON FOR VISIT EKG MEDICAL (GENERAL) HISTORY Type Description Date Medical [...] Information ASSESSMENTS Encounter Date Diagnosis Notes Jan, Pre-op testing (ICD-10 - Z01.818) PLAN OF TREATMENT Treatment Notes Test Name Order Date ECHOCARDIOGRAM 2020-01-23 Next Appt Details Provider Name:Mukul Powell, 2020-01-29 0 9:00:00 AM, [address], [place], [address], Insurance Providers Payer Name Payer Payer Insured Name Patient Coverage Covera End Address Phone Relationship to Start Date Yannick e Insured [employer] [phone] Emilia Roman and Blue [id number] [place] [phone]
--- OUTSIDE RECORDS SUMMARY | 2020-01-25 17:26 | XMS REPORT ---
:1970 Author Organization [facility] Address [address] [place] [address] Care Team Providers Name Role Phone Andre Unavailable [phone] PROBLEMS Type Condition ICD9-CM QYN78-CO Onset Condition SNOMED Code Notes Code Code Dates Status Problem Nontraumatic M75.101 Active 715714219 tear of right rotator cuff, unspecified tear extent ALLERGIES No Known Allergies ENCOUNTERS from 1970 to 2020-01-23 Encounter Location Date Provider Diagnosis [facility] [address] Dec, [facility] [place] [address] IMMUNIZATIONS No Information SOCIAL HISTORY Tobacco Use: [...] D Active Tricor Active Ciprofloxacin HCl Not-Taking Ihign-5-zmsf Ethyl Esters No t-Taking Aspir-81 Active Atorvastatin Calcium Active Plavix Active Stool Softener Active Ozempic (1 MG/DOSE) Active Glucovance Active Rizatriptan Benzoate Active Protonix Active Oxycodone-Acetaminophen Acti ve Benadryl Active Vascepa Active Lisinopril Active BuPROPion HCl Active Metoprolol Succinate ER Acti ve PROCEDURES No Information RESULTS No Results REASON FOR VISIT Aspirin/PLavix MEDICAL (GENERAL) HISTORY Type Description Date Medical [...] TREATMENT Next Appt Details Provider Name:Mukul Powell, 2020-01-29 0 9:00:00 AM, [address] [facility] [address], [place], [address], Insurance Providers Payer Name Payer Payer Insured Name Patient Coverage Covera ge End Address Phone Relationship to Start Date Yannick e Insured [employer] [phone] Emilia Roman and Korey [id number] [place] [phone]
--- OUTSIDE RECORDS SUMMARY | 2020-01-25 17:26 | XMS REPORT | Continuity of Care Document ---
:1970 Author Organization [facility] t Address [address] [place] [address] Care Team Providers Name Role Phone Eloy SHELL Primary Care Physician Dayna SHELL Attending Clinician Problems Condition Condition Condition Status Onset Resolution Last Treating Co mments Source Name Details Category Date Date Treatment Clinician Date Chronic Chronic Disease Active 2015-[address] [facility] pain pain 05-21 [facility] 00 [facility] Back pain Back pain Disease Active 2015-[address] [facility] 05-21 [facility] 00 [place] HTN HTN Disease Active 2015-[address] [facility] (hypertens (hypertens 05-21 [facility] - ion) ion) 00:00: Medical 00 [place] Smoking Smoking Disease Active 2015-[address] [facility] 05[facility]21 [facility] 00 [facility] Dyslipidem Dyslipidem Disease Active 2015-[address] ia ia 05-21 - 00:00: Medical 00 Center Constipati Constipati Disease Active 2015-[address] on on 05-21 [facility] 00 [place] Nausea Nausea Disease Active 2015-[address] [facility] 05-21 [facility] 00 [place] STEMI (ST STEMI (ST Disease Active 2015-[address] [facility] elevation elevation 05-20 [facility] - myocardial myocardial 00:00: Me dical infarction infarction 00 Ce nter ) ) Allergies, Adverse Reactions, Alerts This patient has no known allergies or adverse reactions. Social History Social Habit Start Date Stop Date Quantity Comments Source History of tobacco Cigarette Smoker [facility] use [facility] Sex Assigned At [facility] Cigarettes smoked 2016-03-21 2016-03-21 [facility] - current (pack per 00:00:00 00:00:00 Medical Center day) - Reported Cigarette 2016-03-21 2016-03-21 [facility] - pack-years 00:00:00 00:00:00 Medical Center Smoking Status Start Date Stop Date Source Smoker, current status 2016-03-21 00:00:00 [facility] unknown Center Medications Ordered Filled Start Stop Current Ordering Indication Dosage Frequency Signature Comments Components Source Medication Medication Date Date Medication? Clinician (SIG) Name Name LINACLOTIDE 2015-04 Yes 145ug Take [address] (LINZESS 2-01 mcg by [facility] - ORAL) 16:20: mouth . Medical 00 Center omega-3 2015-04 Yes 2g Q.5D Take [address] [facility] fatty 2-01 by mouth 2 [facility] - acids-fish 16:20: (two) Medica l oil 00 times Center 340-1,000 daily . mg Cap per capsule cyclobenzap 2015-04 Yes 10mg Take [address] [facility] rine 2-01 by mouth 2 [facility] - (FLEXERIL) 16:20: (two) Medica l 5 MG tablet 00 times Center daily as needed for Muscle spasms . CANAGLIFLOZ 2015-04 Yes 300mg Take [address] IN 2-01 mg by [facility] - (INVOKANA 16:20: mouth . Medic al ORAL) 00 Center oxyCODONE-a 2015-04 Yes 2{tbl} Take [address] cetaminophe 2-01 tablets by [facility] - n 16:20: mouth Medical (PERCOCET) 00 every 4 Center 10-325 mg (four) per tablet hours as needed for Pain. rizatriptan 2015-04 Yes 5mg Take [address] (MAXALT) 10 2-01 by mouth [facility] - MG tablet 16:20: once as Medic al 00 needed for Center Headaches or Migraine Do NOT exceed thirty (30) mg in 24 hours. . zolpidem 2015-04 Yes 10mg Take [address] [facility] (AMBIEN) 10 2-01 by mouth [facility] - mg tablet 16:20: every Medical 00 night as Center needed for Insomnia. calcium 2015-04 Yes 1{tbl} QD Take [address] [facility] carbonate-v 2-01 tablet by Brittni es - itamin D2 16:20: mouth Medical 500 00 daily. Center mg(1,250mg) -200 unit tablet fenofibrate 2015-04 Yes 145mg QD Take [address] (TRICOR) 2-01 mg by [facility] - 145 MG 16:19: mouth Medical tablet 59 daily. Center glyBURIDE-m 2015-04 Yes 4{tbl} QD Take [address] etFORMIN 2-01 tablets by [facility] - (GLUCOVANCE 16:19: mouth Medic al ) 2.5-500 59 nightly. Center mg per tablet buPROPion 2015-04 Yes 150mg QD Take [address] [facility] (WELLBUTRIN 2-01 mg by [facility] - XL) 150 MG 15:57: mouth Medica l 24 hr 27 daily. Center tablet pregabalin 2015-04 Yes 75mg Q.5D Take [address] (LYRICA) 75 2-01 by mouth 2 [facility] - MG capsule 15:57: (two) Medica l 27 times Center daily. diphenhydrA 2015-04 Yes 25mg QD Take [address] [facility] MINE 2-01 by mouth [facility] - (BENADRYL) 15:57: nightly. Med ical 25 mg 27 Center tablet diazepam 2015-04 Yes 2mg Take [address] [facility] (VALIUM) 2 2-01 by mouth [facility] - MG tablet 15:57: every 8 Medic al 27 (eight) Center hours as needed for Anxiety. ALPRAZolam 2015-04 Yes .5mg Take 0.[address] [facility] (XANAX) 0.5 2-01 mg by [facility] - MG tablet 15:57: mouth Medical 27 every Center night as needed for Anxiety. Stool Stool Yes Mukul not [facility] Softener Softener [facility] defined [facility] Glucovance Glucovance Yes Mukul not [facility] defined [facility] Aspir-81 Aspir-81 Yes Mukul not [facility] defined [facility] Ciprofloxac Ciprofloxac Yes Mukul not [facility] in HCl in HCl [facility] defined [facility] Metoprolol Metoprolol Yes Mukul not [facility] Succinate Succinate [facility] defined [facility] Ozempic (1 Ozempic (1 Yes Mukul not [facility] MG/DOSE) MG/DOSE) [facility] defined [facility] [place]-3-aci [place]-3-aci Yes Mukul not [facility] d Ethyl d Ethyl [facility] defined [facility] [place] [facility] Benadryl Benadryl Yes Mukul not [facility] defined [facility] Clopidogrel Clopidogrel Yes Mukul not [facility] Bisulfate Bisulfate [facility] defined [facility] Oxycodone-A Oxycodone-A Yes Mukul not [facility] cetaminophe cetaminophe [facility] defined [facility] n [facility] Lisinopril Lisinopril Yes Mukul not [facility] defined [facility] Protonix Protonix Yes Mukul not [facility] defined [facility] BuPROPion BuPROPion Yes Mukul not [facility] HCl HCl [facility] defined [facility] Tricor Tricor Yes Mukul not [facility] defined [facility] Rizatriptan Rizatriptan Yes Mukul not [facility] Benzoate Benzoate [facility] defined [facility] Cyclobenzap Cyclobenzap Yes Mukul not [facility] rine HCl rine HCl [facility] defined [facility] Vascepa Vascepa Yes Mukul not [facility] defined [facility] Vitamin D Vitamin D Yes Mukul not [facility] defined [facility] Atorvastati Atorvastati Yes Mukul not [facility] n Calcium n Calcium [facility] defined [facility] Plavix Plavix Yes Mukul not [facility] defined [facility] Procedures This patient has no known procedures. Encounters Start End Encounter Admission Attending Care Care Encounter Source Date/Time Date/Time Type Type Clinicians Facility Department ID 2020-01-22 2020-01-22 Outpatient [facility] [id number] [facility] 2020-01-18 2020-01-18 Outpatient [facility] [id number] [facility] 2020-01-10 2020-01-10 Outpatient [facility] [id number] [facility] 2020-01-10 2020-01-10 Outpatient [facility] [id number] [facility] 2019-12-19 2019[facility]12-19 [facility] [id number] 09:38:00 09:38:00 [facility] 2019-12-15 2019-12-15 [facility] [id number] 09:45:00 09:45:00 [facility] 2019-12-07 2019-12-07 [facility] [id number] 12:55:00 12:55:00 t [facility] 2019-11-30 2019-11-30 [facility] [id number] 15:47:00 15:47:00 t [facility] 2019-11-30 2019-11-30 [facility] [id number] 14:00:00 14:00:00 [facility] 2019-01-10 2019-01-10 ARNIE Sanches [id number] 11:57:08 16:51:47 Visit [facility] AMBUL[facility] [id number] Y [id number] Results This patient has no known results.
== END 2020-01-24 10:35 | disposition home health service (06) ==
LOC: OR 06:05
PROVIDERS: ATTEND Orthopaedic Surgery Sports Medicine
PROC: 0RNJ4ZZ Release Right Shoulder Joint, Percutaneous Endoscopic Approach (ICD-10-PCS; 2020-01-24)
PROC: 0LQ14ZZ Repair Right Shoulder Tendon, Percutaneous Endoscopic Approach (ICD-10-PCS; principal; 2020-01-24 07:30)
DX: M75.101 Unspecified rotator cuff tear or rupture of right shoulder, not specified as traumatic (principal); M75.21 Bicipital tendinitis, right shoulder; M75.41 Impingement syndrome of right shoulder; E11.9 Type 2 diabetes mellitus without complications; I10 Essential (primary) hypertension; K21.9 Gastro-esophageal reflux disease without esophagitis; G43.909 Migraine, unspecified, not intractable, without status migrainosus; Z20.828 Contact with and (suspected) exposure to other viral communicable diseases
CPT/HCPCS: 93005 ×2; 85025; 80048; 36415; 81025; 85610; 82947 ×2; 85730; 71046; 73020; 29827; 29826; U0002; J2704; J1100; J0171; J2370; J2250; J3010; J2795; J0690; J7030 ×2; J2405 ×2

== ENCOUNTER 2022-05-20 06:22 | Day surgery (SDC) | payer BC ==
[2022-05-20] MEDS ORDERED: NA CHLORIDE 0.9% 1,000 ML ONE (06:30)
[2022-05-20] MEDS ORDERED: SIMETHICONE 40 MG/ 0.6 ML ONE (07:07)
[2022-05-20] MEDS ORDERED: LIDOCAINE 1% MPF 5 ML VIAL ONE (07:42)
[2022-05-20] MEDS ORDERED: propofoL 200 MG/20 ML VIAL IV ONE (07:42)
--- NOTE | 2022-05-20 08:40 | ENDO RPT ---
[address], [address] COLONOSCOPY PROCEDURE REPORT EXAM DATE: 05/20/2022 PATIENT NAME: Emilia Roman MR #: [id number] BIRTHDATE: 1970 ATTENDING: Ricco Gonsalez Dr STATUS: outpatient MEDIA ANALYTICS MANAGER: Tamika Hdz and Gris Santillan RN INDICATIONS: The patient is a 52 yr old Female here for a colonoscopy due to personal history of colon polyps and family history of colon polyps - father sister PROCEDURE PERFORMED: Colonoscopy with biopsy MEDICATIONS: Per Anesthesia. ESTIMATED BLOOD LOSS: None CONSENT: The patient understands the risks and benefits of the procedure and understands that these risks include, but are not limited to: sedation, allergic reaction, infection, perforation and/or bleeding. Alternative means of evaluation and treatment include, among others: physical exam, x-rays, and/or surgical intervention. The patient elects to proceed with this endoscopic procedure. DESCRIPTION OF PROCEDURE: During intra-op preparation period all mechanical medical equipment was checked for proper function. Hand hygiene and appropriate measures for infection prevention was taken. Procedure, possible complications, alternatives including, but not limited to possibility of bleeding, perforation, tear, infection, sepsis, need for surgery, need for blood transfusion, were explained to the patient. After the risks, benefits and alternatives of the procedure were thoroughly explained, Informed consent was verified, confirmed and timeout was successfully executed by the treatment team. The patient was placed in the left lateral position. A digital rectal exam was performed and revealed no abnormalities of the rectum. After appropriate level of anesthesia, the scope was passed. The EC-[id number] ([id number]) endoscope was introduced through the anus and advanced to the terminal ileum which was intubated for a short distance. The quality of the prep was good. The instrument was then slowly withdrawn as the colon was fully examined. Scope withdrawal time was 8 minutes. COLON FINDINGS: Edematous / erythematous / inflamed annular ring (80% lumen 1.5 cm wide) of mucosa in the sigmoid colon at 30 cm from the anal verge, s/p biopsies X2 with excessive bleeding. Internal hemorrhoids were found. Retroflexed views revealed small hemorrhoids. The scope was then completely withdrawn from the patient and the procedure terminated. ADVERSE EVENTS: There were no complications. IMPRESSIONS: 1. Edematous / erythematous / inflamed annular ring (80% lumen biopsies X2 with excessive bleeding 2. Internal hemorrhoids 3. Intubation to terminal ileum RECOMMENDATIONS: 1. await biopsy results 2. CT abdomen / pelvis RECALL: Return in 1 year(s) for Colonoscopy. Ricco Gonsalez Dr eSigned: Ricco Gonsalez Dr 05/20/2022 8:39 AM cc: Rogelio Lyons CPT CODES: ICD9 CODES: PATIENT NAME: Emilia Roman MR#: [id number]
--- NOTE | 2022-05-20 10:11 | ENDO RPT ---
[address], [address] COLONOSCOPY PROCEDURE REPORT EXAM DATE: 05/20/2022 PATIENT NAME: Emilia Roman MR #: [id number] BIRTHDATE: 1970 ATTENDING: Ricco Gonsalez Dr STATUS: outpatient DE ICER KIT ASSEMBLER: Tamika Hdz and Gris Santillan RN INDICATIONS: The patient is a 52 yr old Female here for a colonoscopy due to personal history of colon polyps and family history of colon polyps - father sister PROCEDURE PERFORMED: Colonoscopy with biopsy MEDICATIONS: Per Anesthesia. ESTIMATED BLOOD LOSS: None CONSENT: The patient understands the risks and benefits of the procedure and understands that these risks include, but are not limited to: sedation, allergic reaction, infection, perforation and/or bleeding. Alternative means of evaluation and treatment include, among others: physical exam, x-rays, and/or surgical intervention. The patient elects to proceed with this endoscopic procedure. DESCRIPTION OF PROCEDURE: During intra-op preparation period all mechanical medical equipment was checked for proper function. Hand hygiene and appropriate measures for infection prevention was taken. Procedure, possible complications, alternatives including, but not limited to possibility of bleeding, perforation, tear, infection, sepsis, need for surgery, need for blood transfusion, were explained to the patient. After the risks, benefits and alternatives of the procedure were thoroughly explained, Informed consent was verified, confirmed and timeout was successfully executed by the treatment team. The patient was placed in the left lateral position. A digital rectal exam was performed and revealed no abnormalities of the rectum. After appropriate level of anesthesia, the scope was passed. The EC-3890Li ([id number]) endoscope was introduced through the anus and advanced to the terminal ileum which was intubated for a short distance. The quality of the prep was good. The instrument was then slowly withdrawn as the colon was fully examined. Scope withdrawal time was 8 minutes. COLON FINDINGS: Edematous / erythematous / inflamed annular ring (80% lumen 1.5 cm wide) of mucosa in the sigmoid colon at 30 cm from the anal verge, s/p biopsies X2 with excessive bleeding. Internal hemorrhoids were found. Retroflexed views revealed small hemorrhoids. The scope was then completely withdrawn from the patient and the procedure terminated. ADVERSE EVENTS: There were no complications. IMPRESSIONS: 1. Edematous / erythematous / inflamed annular ring (80% lumen biopsies X2 with excessive bleeding (after procedure reports problematic constipation due to pain medications for chronic back pain with screws, can feel stool pulling on her in LLQ frequently, uses fiber supplements prn) 2. Internal hemorrhoids 3. Intubation to terminal ileum RECOMMENDATIONS: 1. await biopsy results 2. CT abdomen / pelvis long-term solution -> probably Miralax) RECALL: Return in 1 year(s) for Colonoscopy. Ricco Gonsalez Dr eSigned: Ricco Gonsalez Dr 05/20/2022 10:11 AM Revised: 05/20/2022 10:11 AM cc: Rogelio Lyons CPT CODES: ICD9 CODES: PATIENT NAME: Emilia Roman MR#: [id number]
[2022-05-20 12:46] VITALS: TEMP 97.7
[2022-05-20 12:48] VITALS: BP 115/72; O2SAT 98
--- NOTE | 2022-05-20 13:01 | RAD REPORT ---
EXAM DESCRIPTION: CT - Abdomen Pelvis W Contrast - 05/20/2022 11:47 am CLINICAL HISTORY: post colonoscopy: mass in sigmoid colon COMPARISON: No comparisons TECHNIQUE: Biphasic, helical CT imaging of the abdomen and pelvis was performed following 100 ml non -ionic IV contrast. Oral contrast: Yes All CT scans are performed using dose optimization technique as appropriate and may include automated exposure control or mA/KV adjustment according to patient size. FINDINGS: No suspicious findings in the lung bases. The liver, spleen, and pancreas show no suspicious findings. Liver attenuation is borderline fatty in filtrated. Cholecystectomy clips are present. No abnormal biliary tree dilatation. Symmetric renal function is seen with no hydronephrosis or suspicious renal mass. No pyelonephritis o r acute parenchymal process. No bladder abnormalities. No adrenal abnormalities. Uterus and ovaries s how no suspicious findings. No stomach or small bowel abnormality identified. Oral contrast has reached the distal rectum. No galen ss evidence for a colon mass. Mucosal level: Lesions can be occult on CT imaging. There is no strandi ng, edema or lymphadenopathy in the adjacent fatty tissues. No abnormal lymphadenopathy seen on this examination. No free air, free fluid or pneumatosis. No hernia, mass or bulky lymphadenopathy. No suspicious bony findings. Postsurgical changes are present at the lumbosacral junction. IMPRESSION: No liver lesion, lymphadenopathy or other suspicious finding to indicate distant disease . No gross evidence for a colon mass. Mucosal level masses in polyps can be occult on CT imaging.
== END 2022-05-20 09:17 | disposition home or self-care (01) ==
LOC: OR 06:22
PROVIDERS: ATTEND Internal Medicine Gastroenterology
PROC: 0DBN8ZX Excision of Sigmoid Colon, Via Natural or Artificial Opening Endoscopic, Diagnostic (ICD-10-PCS; principal; 2022-05-20 07:30)
DX: Z12.11 Encounter for screening for malignant neoplasm of colon (principal); Z86.010 Personal history of colon polyps; Z80.0 Family history of malignant neoplasm of digestive organs; Z83.71 Family history of colonic polyps; I10 Essential (primary) hypertension; E78.5 Hyperlipidemia, unspecified; K21.9 Gastro-esophageal reflux disease without esophagitis; K64.8 Other hemorrhoids; K59.00 Constipation, unspecified
CPT/HCPCS: 81025; 82947; 88305; 74177; 45380; Q9967; J2704; J2001; J7030

== ENCOUNTER 2024-01-12 19:53 | Emergency (ER) | payer BC ==
[2024-01-12 20:53] LABS: Absolute Eosinophils 0.1 K/uL (0-0.5); Absolute Lymphocytes (CBC) 1.7 K/uL (0.7-4.9); Absolute Monocytes 0.4 K/uL (0.1-1.3); Absolute Neutrophil 2.8 K/uL (1.8-8.0); Basophils % 0.5 % (0-1.3); Hematocrit 37.8 % (36.0-45.0); Hemoglobin 12.7 g/dL (12.0-15.0); Lymphocytes % 33.5 % (15.3-44.8); MCH 28.6 pg (27.0-35.0); MCHC 33.5 g/dL (32.0-36.0); MCV 85.5 fL (80-100); Monocytes % 8.2 % (3.3-12.3); Neutrophils % 56.8 % (41.7-73.7); Nucleated Red Blood Cells % 0.1 % (0-0); Platelets 307 thou/uL (152-406); RBC Red Blood Cell Count 4.42 M/uL (3.86-4.86)
[2024-01-12] MEDS ORDERED: ACETAMINOPHEN 500 MG TAB ONE (20:57)
[2024-01-12] MEDS ORDERED: CLINDAMYCIN 900MG/D5W 900 MG/50 ML IVPB IV ONE (20:58)
[2024-01-12] MEDS ORDERED: FENTANYL CITR 100 MCG/2 ML ONE (20:58)
[2024-01-12 21:00] LABS: PT Prothrombin Time 11.6 SECONDS (9.4-12.5); PTT, Activated Partial Thromb 33.9 SECONDS (24.3-36.9); Protime INR 1.04
[2024-01-12 21:13] LABS: Albumin 3.3 g/dL (3.4-5.0); Albumin/Globulin Ratio 0.8 (1.1-1.8); Anion Gap 6.9 mEq/L (5.0-15.0); Bilirubin Total 0.2 mg/dL (0.2-1.0); Globulin 3.9 g/dL (2.3-3.5); Potassium 3.9 mEq/L (3.5-5.1); Protein, Total 7.2 g/dL (6.4-8.2)
[2024-01-12] MEDS ORDERED: NA CHLORIDE 0.9% 1,000 ML ONE (21:18)
--- NOTE | 2024-01-12 21:21 | RAD REPORT ---
EXAM: Head Brain Wo Cont HISTORY: eval for mastoiditis, L side COMPARISON: 09/27/[address] TECHNIQUE: Multiple contiguous axial images were obtained for a CT of the brain without contrast. Sag ittal and coronal reformats were performed. One or more of the following dose reduction techniques were used: Automated exposure control, adjus tment of the mA and kV according to patient size, and iterative reconstruction. Unless otherwise specified, incidental findings do not require dedicated imaging follow-up. FINDINGS: No evidence of hydrocephalus, intracranial hemorrhage, or extra-axial fluid collection. Focus of hypoattenuation in the left subinsular region is stable, may represent a prominent perivascu lar space. The brain is otherwise normal in morphology. The calvarium is intact. The visualized paranasal sinuses and mastoid air cells are essentially clear . IMPRESSION: No evidence of acute intracranial abnormality. Normal opacification of the mastoid air cells.
--- NOTE | 2024-01-12 22:54 | ER ---
Nurse's Notes [facility] Name: Emilia Roman Age: 53 yrs Sex: Female : 1970 Arrival Date: 01/12/2024 Time: 19:53 Bed 5 Private MD: Diagnosis: Otalgia, left ear Presentation: 01/11 20:07 Chief complaint: Patient states: Left ear pain onset today. Pt states that it is a cm10 throbbing pain. Coronavirus screen: Client denies travel out of the [place] in the last 14 days. Ebola Screen: Patient denies travel to an Ebola-affected area in the 21 days before illness onset. No symptoms or risks identified at this time. Initial Sepsis Screen: Does the patient meet any 2 criteria? No. Patient's initial sepsis screen is negative. Does the patient have a suspected source of infection? No. Patient's initial sepsis screen is negative. Risk Assessment: Do you want to hurt yourself or someone else? Patient reports no desire to harm self or others. Onset of symptoms was January 12, 2024. 20:07 Method Of Arrival: Ambulatory cm10 20:07 Acuity: KENDRA 3 cm10 Triage Assessment: 20:08 General: Appears in no apparent distress. uncomfortable, Behavior is calm, cooperative. cm10 Neuro: No deficits noted. Level of Consciousness is awake, alert, obeys commands, Oriented to person, place, time, situation, Appropriate for age. 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 - Infectious Disease History:: Denies. - Social history:: Smoking status: Patient denies any tobacco usage or history of. Screenin:03 [facility] ED Fall Risk Assessment (Adult) History of falling in the last 3 months, bm8 including since admission No falls in past 3 months (0 pts) Confusion or Disorientation No (0 pts) Intoxicated or Sedated No (0 pts) Impaired Gait No (0 pts) Mobility Assist Device Used No (0 pt) Altered Elimination No (0 pt) Score/Fall Risk Level 0 - 2 = Low Risk Oriented to surroundings, Maintained a safe environment, Educated pt \T\ family on fall prevention, incl call for assistance when getting out of bed, Assessed \T\ reinforced patient's understanding of fall precautions, Hourly rounding (assess needs \T\ fall precautionary measures) done, Used ambulatory aids as needed (educated on \T\ assisted with), Used gait belt as appropriate. Abuse screen: Denies threats or abuse. Nutritional screening: No deficits noted. Tuberculosis screening: No symptoms or risk factors identified. Assessment: 21:03 General: Appears in no apparent distress. comfortable, Behavior is calm, cooperative, bm8 appropriate for age. Pain: Complains of pain in left ear Pain does not radiate. Pain currently is 8 out of 10 on a pain scale. Neuro: No deficits noted. Level of Consciousness is awake, alert, obeys commands, Oriented to person, place, time, situation, Appropriate for age. Cardiovascular: Denies chest pain, Heart tones S1 S2 present Capillary refill < 3 seconds Patient's skin is warm and dry. Respiratory: Airway is patent Respiratory effort is even, unlabored, Respiratory pattern is regular, symmetrical, Breath sounds are clear bilaterally. GI: No signs and/or symptoms were reported involving the gastrointestinal system. : No signs and/or symptoms were reported regarding the genitourinary system. EENT: swelling behind left ear. Reports pain Pain is 8 out of 10 on a pain scale. Derm: No signs and/or symptoms reported regarding the dermatologic system. Musculoskeletal: No signs and/or symptoms reported regarding the musculoskeletal system. 22:46 Reassessment: Patient appears in no apparent distress at this time. Patient and/or bm8 family updated on plan of care and expected duration. Pain level reassessed. Patient is alert, oriented x 3, equal unlabored respirations, skin warm/dry/pink. Patient denies pain at this time. Patient states feeling better. Patient states symptoms have improved. Vital Signs: 20:07 BP 147 / 79; Pulse 103; Resp 18; Temp 98; Pulse Ox 100% on R/A; Weight 77.11 kg; Height cm10 5 ft. 9 in. ; Pain 8/10; 21:12 BP 136 / 102; Pulse 95; Resp 17; Pulse Ox 95% ; Pain 8/10; bm8 22:46 BP 129 / 77; Pulse 85; Resp 19; Temp 98; Pulse Ox 99% ; Pain 0/10; bm8 20:07 Body Mass Index 25.10 (77.11 kg, 175.26 cm) cm10 20:07 Pain Scale: Adult cm10 21:12 Pain Scale: Adult bm8 22:46 Pain Scale: Adult bm8 Son Coma Score: 21:03 Eye Response: spontaneous(4). Motor Response: obeys commands(6). Verbal Response: bm8 oriented(5). Total: 15. 21:12 Eye Response: spontaneous(4). Motor Response: obeys commands(6). Verbal Response: bm8 oriented(5). Total: 15. 22:46 Eye Response: spontaneous(4). Motor Response: obeys commands(6). Verbal Response: bm8 oriented(5). Total: 15. ED Course: 19:57 Patient arrived in ED. [email or web address] 20:07 Jhon Nickerson MD is Attending Physician. ec2 20:08 Triage completed. cm10 20:08 Arm band placed on left wrist. Patient placed in waiting room. cm10 20:14 Mingo See, RN is Primary Nurse. bm8 20:20 Initial lab(s) drawn, by wv, sent to lab. First set of blood cultures drawn by me, EKG bm8 done, by ED staff, reviewed by Andrei Benavides NP. Inserted saline lock: 20 gauge in left forearm, using aseptic technique. Blood collected. Flushed with 10 mL NS. 20:45 Second set of blood cultures drawn by me. Patient maintains SpO2 saturation greater bm8 than 95% on room air. 20:49 Andrei Benavides NP is PHCP. ec2 21:03 Patient has correct armband on for positive identification. Placed in gown. Bed in low bm8 position. Call light in reach. Side rails up X 1. Adult w/ patient. Client placed on continuous cardiac and pulse oximetry monitoring. NIBP monitoring applied. bass viol repairer on. Pulse ox on. NIBP on. Door closed. Noise minimized. Warm blanket given. Pillow given. Verbal reassurance given. Head of bed elevated. 21:03 No provider procedures requiring assistance completed. bm8 21:05 CT Head Brain wo Cont In Process Unspecified. EDMS 21:27 Notified Nurse Practitioner and/or Physician Decal Cutter of a critical lab result(s), al5 lactate 2.1. 23:21 Provided Education on: post er care, follow up with ENT. bm8 23:21 IV discontinued, intact, bleeding controlled, No redness/swelling at site. Pressure bm8 dressing applied. Administered Medications: 21:11 Drug: Clindamycin IVPB 900 mg IVPB once over 30 mins; (mix in 50 mL) Route: IVPB; bm8 Infused Over: 30 mins; Site: left forearm; 22:47 Follow up: Response: No adverse reaction; IV Status: Completed infusion; IV Intake: [id number] 21:12 Drug: Acetaminophen PO 1000 mg PO once Route: PO; bm8 22:48 Follow up: Response: No adverse reaction bm8 21:12 Drug: fentaNYL (PF) IVP 25 mcg IVP once Route: IVP; Site: left forearm; bm8 22:47 Follow up: Response: No adverse reaction bm8 21:23 Drug: NS 0.9% IV 1000 ml IV at 1000 ml once Route: IV; Rate: 1000 ml; Site: left bm8 forearm; 22:47 Follow up: Response: No adverse reaction; IV Status: Completed infusion; IV Intake: bm8 1000ml Medication: 21:03 VIS not applicable for this client. bm8 Intake: 22:47 IV: 50ml; Total: 50ml. bm8 22:47 IV: 1000ml; Total: 1050ml. bm8 Outcome: 22:53 Discharge ordered by . pm1 23:21 Discharged to home ambulatory, bm8 23:21 Condition: stable 23:21 Discharge instructions given to patient, family, Instructed on discharge instructions, follow up and referral plans. no drinking with medication, no driving heavy equipment, medication usage, safety practices, Demonstrated understanding of instructions, follow-up care, medications, 23:21 Prescriptions given X 1, bm8 23:22 Patient left the ED. bm8 Signatures: Dispatcher [employer] EDMS Andrei Benavides NP SCALLOP BINDER pm1 Chandrika Vega6 Kathie Woodard RN RN cm10 Jhon Nickerson MD MD 2 Mingo See RN RN bm8 Langhorst, Gaby, RN RN al5
--- NOTE | 2024-01-12 22:54 | EDPHYS ---
Physician Documentation [facility] Name: Emilia Roman Age: 53 yrs Sex: Female : 1970 Arrival Date: 01/12/2024 Time: 19:53 Bed 5 Private MD: ED Physician Jhon Nickerson HPI: 01/11 20:10 This 53 yrs old Female presents to ER via Ambulatory with complaints of Ear ec2 Pain. 20:10 Patient arrives today for evaluation of left mastoid pain. Patient complained of pain ec2 has been progressively worsening. History of diabetes, hypertension and hyperlipidemia.. 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 - Infectious Disease History:: Denies. - Social history:: Smoking status: Patient denies any tobacco usage or history of. ROS: 20:10 Constitutional: as per hpi ec2 Exam: 20:10 Constitutional: GEN: NAD Head: atraumatic Eyes: EOMI Ears: External ears are normal. ec2 Left mastoid with TTP without significant erythema or warmth appreciated CV: regular rate LUNGS: no respiratory distress ABD: non-distended SKIN: no evidence of rashes MSK: no evidence of trauma 21:00 ECG was reviewed by the Attending Physician. pm1 Vital Signs: 20:07 BP 147 / 79; Pulse 103; Resp 18; Temp 98; Pulse Ox 100% on R/A; Weight 77.11 kg; Height cm10 5 ft. 9 in. ; Pain 8/10; 21:12 BP 136 / 102; Pulse 95; Resp 17; Pulse Ox 95% ; Pain 8/10; bm8 22:46 BP 129 / 77; Pulse 85; Resp 19; Temp 98; Pulse Ox 99% ; Pain 0/10; bm8 20:07 Body Mass Index 25.10 (77.11 kg, 175.26 cm) cm10 20:07 Pain Scale: Adult cm10 21:12 Pain Scale: Adult bm8 22:46 Pain Scale: Adult bm8 Son Coma Score: 21:03 Eye Response: spontaneous(4). Motor Response: obeys commands(6). Verbal Response: bm8 oriented(5). Total: 15. 21:12 Eye Response: spontaneous(4). Motor Response: obeys commands(6). Verbal Response: bm8 oriented(5). Total: 15. 22:46 Eye Response: spontaneous(4). Motor Response: obeys commands(6). Verbal Response: bm8 oriented(5). Total: 15. MDM: 20:07 Patient medically screened. ec2 20:10 Data reviewed: vital signs. ED course: Patient arrives today for evaluation of left ec2 mastoid pain. Examination remarkable for mastoid findings as above. Will obtain a septic workup, empirically treat with clindamycin, obtain CT scan of the head to evaluate for mastoiditis. . 20:48 ED course: Patient signed out pending lab work and imaging.. ec2 22:50 ED course: Negative CT head for mastoiditis. Discussed with Dr Barksdale and he pm1 recommended changing antibiotic therapy to Keflex 500 BID PO instead of clindamycin due to concern for risk of c. difficile. 01/11 20:08 Order name: Blood Culture Adult (2) 2 01/11 20:08 Order name: CBC with Diff; Complete Time: 21:17 [facility] 01/11 20:08 Order name: CMP; Complete Time: 21:17 [facility] 01/11 20:08 Order name: Lactate w/ 2H reflex if indic.; Complete Time: 21:17 2 01/11 20:08 Order name: Protime (+inr); Complete Time: 21:17 2 01/11 20:08 Order name: Ptt, Activated; Complete Time: 21:17 2 01/11 23:15 Order name: Ghost Lactate-NO COLLECT Timer; Complete Time: 00:54 EDMS 01/11 20:10 Order name: CT Head Brain wo Cont; Complete Time: 21:50 ec2 01/11 20:08 Order name: EKG; Complete Time: 20:08 ec2 01/11 20:08 Order name: Accucheck; Complete Time: 21:02 2 01/11 20:08 Order name: Cardiac monitoring; Complete Time: 21: 01/11 20:08 Order name: EKG - Nurse/Tech; Complete Time: : 01/11 20:08 Order name: IV Saline Lock - Large Bore; Complete Time: 21:01/11 20:08 Order name: Labs collected and sent; Complete Time: 21:01/11 20:08 Order name: O2 Per Protocol; Complete Time: :01/11 20:08 Order name: O2 Sat Monitoring; Complete Time: :01/11 20:08 Order name: Vital Signs; Complete Time: : ec EC:00 Rate is 93 beats/min. Rhythm is regular, Normal Sinus Rhythm. Left axis deviation pm1 noted. IA interval is normal. QRS interval is normal. QT interval is normal. No Q waves. T waves are Normal. No ST changes noted. Clinical impression: normal sinus rhythm, left axis deviation, abnormal ECG. Administered Medications: 21:11 Drug: Clindamycin IVPB 900 mg IVPB once over 30 mins; (mix in 50 mL) Route: IVPB; bm8 Infused Over: 30 mins; Site: left forearm; 22:47 Follow up: Response: No adverse reaction; IV Status: Completed infusion; IV Intake: [id number] 21:12 Drug: Acetaminophen PO 1000 mg PO once Route: PO; bm8 22:48 Follow up: Response: No adverse reaction bm8 21:12 Drug: fentaNYL (PF) IVP 25 mcg IVP once Route: IVP; Site: left forearm; bm8 22:47 Follow up: Response: No adverse reaction bm8 21:23 Drug: NS 0.9% IV 1000 ml IV at 1000 ml once Route: IV; Rate: 1000 ml; Site: left bm8 forearm; 22:47 Follow up: Response: No adverse reaction; IV Status: Completed infusion; IV Intake: bm8 1000ml Disposition Summary: 01/12/24 22:53 Discharge Ordered Notes: Location: Home pm1 Problem: new pm1 Symptoms: have improved pm1 Condition: Stable pm1 Diagnosis - Otalgia, left ear pm1 Followup: pm1 - With: Emergency Department - When: As needed - Reason: Worsening of condition Followup: pm1 - With: Private Physician - When: 2 - 3 days - Reason: Recheck today's complaints, Continuance of care, Re-evaluation by your physician Discharge Instructions: - Discharge Summary Sheet pm1 - Earache, Adult pm1 Forms: - Medication Reconciliation Form pm1 - Antibiotic Education pm1 - Prescription Opioid Use pm1 - Patient Portal Instructions pm1 - Leadership Thank You Letter pm1 Prescriptions: - Cephalexin 500 mg Oral Capsule - take 1 capsule ORAL route every 12 hours for 10 days; 20 capsule; Refills: 0, pm1 Product Selection Permitted Signatures: Dispatcher [employer] EDMS Andrei Benavides, THERMAL MOLDER THERMAL MOLDER pm1 Kathie Woodard, RN RN cm10 Jhon Nickerson MD MD ec2 Mingo See, RN RN bm8 Corrections: (The following items were deleted from the chart) 20:08 20:08 BLOOD CULTURE*+BA.LAB.BRZ ordered. EDMS EDMS 20:08 20:08 CBC+H.LAB.BRZ ordered. EDMS EDMS 20:08 20:08 COMPREHENSIVE METABOLIC PANEL+C.LAB.BRZ ordered. EDMS EDMS 20:08 20:08 LACTATE+C.LAB.BRZ ordered. EDMS EDMS 20:08 20:08 PROTIME (+INR)+COAG.LAB.BRZ ordered. EDMS EDMS 20:08 20:08 PTT, ACTIVATED+COAG.LAB.BRZ ordered. EDTX EDMS 01/12 02:25 01/11 22:50 ED course: Negative CT head for mastoiditis. Discussed with Dr Yeung and he pm1 recommended changing antibiotic therapy to Keflex 500 BID PO instead of clindamycin. pm1
[2024-01-12 23:47] VITALS: TEMP 98
[2024-01-12 23:52] VITALS: BP 129/77; O2SAT 99
--- NOTE | 2024-01-13 12:08 | EKG ---
Test Date: 2024-01-12 Test Time: 20:52:43 Tableman: MARTHA MEASUREMENT RESULTS: Intervals: Rate: 93 [place]: 142 QRSD: 86 QT: 380 QTc: 472 [place]: P: 51 [place]: 142 QRS: -31 T: 102 INTERPRETIVE STATEMENTS: Normal sinus rhythm Left axis deviation Abnormal ECG Compared to ECG 01/22/2020 14:56:35 Left-axis deviation now present Myocardial infarct finding no longer present Electronically Signed On 01-13-24 12:07:08 CDT by Avni Cain
== END 2024-01-12 23:22 | disposition home or self-care (01) ==
LOC: ER 19:53
DX: H92.02 Otalgia, left ear (principal)
CPT/HCPCS: 36415; 70450; 80053; 83605; 85025; 85610; 85730; 87040; 93005; 96365; 96366; 96375; 99285; J3010; J7030

== ENCOUNTER 2024-06-07 10:07 | Emergency (ER) | payer BC ==
--- OUTSIDE RECORDS SUMMARY | 2024-06-07 10:16 | XMS REPORT | Continuity of Care Document ---
Author Name Unknown Address [address] [facility] [address] [place] [address] [facility] Address [address] [facility] [address] [place] [address] Care Team Providers Care Manager Cost Name Role Phone PANCHITO MARTINEZ Primary Care Physician Unavailab Alannah James Attending Clinician Unavailable ELLIS, ANTONIO Attending Clinician Unavailable MAUDE VORA Attending Clinician Unavailable EMMA COLEMAN Attending Clinician Unavail able MIN BENNETT Attending Clinician Unav ailable BRISSA GOEL Attending Clinician Unavailable KYLAH MCINTOSH Attending Clinician UnaRADHA Goldberg Attending Clinician Unavailable [email or web address]_S Attending Clinician Unavaila ble ELLIS, ANTONIO Admitting Clinician Unavailable MADUE VORA Admitting Clinician Unavailable MIN BENNETT Admitting Clinician Unav ailable GEOFFREY TREJO Admitting Clinician Unavailable [email or web address]_S Admitting Clinician Unavaila ble Payers Payer Name Policy Type Policy Number Effective Date Expirati on Date Source BCBS PPO POS EPO CHOICE [id number] 2014 00:00[place] [id number] 2014 00:00:00 Blue Cross and Blue Shield C1 [id number] [facility] Blue Cross and Blue Shield C1 [id number] [facility] Blue Cross and Blue Shield C1 [id number] [facility] Blue Cross and Blue Shield C1 [id number] [facility] Blue Cross and Blue Shield C1 [id number] [facility] Blue Cross and Blue Shield C1 [id number] [facility] [employer] and Blue [employer] C1 [id number] [facility] [employer] and [employer] C1 [id number] [facility] Problems Condition Name Condition Details Condition Category Status Onset Date Resolution Date Last Treatment Date Treating Clinician Comments Source Pain in pelvis Pain in Pelvis Problem Active 05-18 00:00: 00 [facility] Atrophic vaginitis Atrophic Vaginitis Problem Active 05-18 00:00: 00 [facility] 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 Problem Active 205 00:00: 00 [facility] Irregular periods Irregular Periods Problem Active 05-09 00:00: 00 [facility] Type 2 diabetes mellitus without complicati on Type 2 Diabetes Mellitus without Complicati on Problem Active 05-06 00:00: [address] [facility] [address] segment elevation myocardial infarction Acute ST Segment Elevation Myocardial Infarction Problem Active 05-05 00:00: 00 [facility] Pain of breast Pain of Breast Problem Active 05-05 00:00: 00 [facility] Constipati on Constipati on Problem Active 2015-04 00:00: 00 [facility] Dysmenorrh ea Dysmenorrh ea Problem Active 2015-04 00:00: 00 [facility] Pelvic and perineal pain Pelvic and Perineal Pain Problem Active 2015-04 00:00: 00 [facility] Uterine leiomyoma Uterine Leiomyoma Problem Active 05-03 00:00: 00 [facility] Simple goiter Simple Goiter Problem Active 05-03 00:00: 00 [facility] Essential hypertensi on Essential Hypertensi on Problem Active 05-03 00:00: 00 [facility] Fibrocysti c disease of breast Fibrocysti c Disease of Breast Problem Active 05-03 00:00: 00 [facility] Gynecologi shiva examinatio n abnormal Gynecologi shiva Examinatio n Abnormal Problem Active 05-03 00:00: 00 [facility] Acute vaginitis Acute Vaginitis Problem Active 2014-04 00:00: 00 [facility] Acute vulvitis Acute Vulvitis Problem Active 2014-04 00:00: 00 [facility] Candidiasi s of vagina Candidiasi s of Vagina Problem Active 2014-04 00:00: 00 [facility] [id number] Primary osteoarthr itis of left knee Problem [facility] [id number] Nontraumat ic tear of right rotator cuff, unspecifie d tear extent Problem Active [facility] Allergies, Adverse Reactions, Alerts Allergy Name Allergy Type Status Severity Reaction(s) Onset Date Inactive Date Treating Clinician Comments Source MORPHINE Allergy Active Other 11-15 00:00: 00 [facility] NO KNOWN ALLERGIE S Allergy Active [facility] Social History Social Habit Start Date Stop Date Quantity Comments Source History of Tobacco Use [facility] Sex Assigned At [facility] Smoking Status Start Date Stop Date Source Former Smoker [facility] Medications Ordered Medication Name Filled Medication Name Start Date Stop Date Current Medication? Ordering Clinician Indication Dosage Frequency Signature (SIG) Comments Components Source Stool Softener Stool Softener Yes Mukul Powell not defined [facility] Glucovance Glucovance Yes Mukul Powell not defined [facility] Aspir-81 Aspir-81 Yes Mukul Powell not defined [facility] Ciprofloxac in HCl Ciprofloxac in HCl Yes Mukul Powell not defined [facility] Metoprolol Succinate ER Metoprolol Succinate ER Yes Mukul Powell not defined [facility] Ozempic (1 MG/DOSE) Ozempic (1 MG/DOSE) Yes Mukul Powell not defined [facility] [place]aci [place] Ethyl Esters [place]aci [place] Ethyl Esters Yes Mukul Powell not defined [facility] Benadryl Benadryl Yes Mukul Powell not defined [facility] Clopidogrel Bisulfate Clopidogrel Bisulfate Yes Mukul Powell not defined [facility] Oxycodone-A cetaminophe n Oxycodone-A cetaminophe n Yes Mukul Powell not defined [facility] Lisinopril Lisinopril Yes Mukul Powell not defined [facility] Protonix Protonix Yes Mukul Powell not defined [facility] BuPROPion HCl BuPROPion HCl Yes Mukul Powell not defined [facility] Tricor Tricor Yes Mukul Powell not defined [facility] Rizatriptan Benzoate Rizatriptan Benzoate Yes Mukul Powell not defined [facility] Cyclobenzap rine HCl Cyclobenzap rine HCl Yes Mukul Powell not defined [facility] Vascepa Vascepa Yes Mukul Powell not defined [facility] Vitamin D Vitamin D Yes Mukul Powell not defined [facility] Atorvastati n Calcium Atorvastati n Calcium Yes Mukul Powell not defined [facility] Plavix Plavix Yes Mukul Powell not defined [facility] [place] Ethyl Esters [place]aci [place] Ethyl Esters No [place]ac id Ethyl Esters Ciprofloxac in HCl Ciprofloxac in HCl No Ciprofloxa johnny HCl oxyCODONE-A cetaminophe n oxyCODONE-A cetaminophe n No oxyCODONE- Acetaminop hen Cyclobenzap rine HCl 10 MG Cyclobenzap rine HCl 10 MG No 1{table t_at_be dtime_a s_neede d} QD Cyclobenza elliot HCl 10 MG Percocet 10-325 MG Percocet 10-325 MG No 1{table t_as_ne eded} QID Percocet 10-325 MG Maxalt 10 MG Maxalt 10 MG No 1{table t} QD Maxalt 10 MG Toprol XL 25 MG Toprol XL 25 MG No 1{table t} QD Toprol XL 25 MG oxyCODONE-A cetaminophe n oxyCODONE-A cetaminophe n No oxyCODONE- Acetaminop hen Cyclobenzap rine HCl 10 MG Cyclobenzap rine HCl 10 MG No 1{table t_at_be dtime_a s_neede d} QD Cyclobenza elliot HCl 10 MG Percocet 10-325 MG Percocet 10-325 MG No 1{table t_as_ne eded} QID Percocet 10-325 MG Maxalt 10 MG Maxalt 10 MG No 1{table t} QD Maxalt 10 MG Toprol XL 25 MG Toprol XL 25 MG No 1{table t} QD Toprol XL 25 MG oxyCODONE-A cetaminophe n oxyCODONE-A cetaminophe n No oxyCODONE- Acetaminop hen Cyclobenzap rine HCl 10 MG Cyclobenzap rine HCl 10 MG No 1{table t_at_be dtime_a s_neede d} QD Cyclobenza elliot HCl 10 MG Percocet 10-325 MG Percocet 10-325 MG No 1{table t_as_ne eded} QID Percocet 10-325 MG Maxalt 10 MG Maxalt 10 MG No 1{table t} QD Maxalt 10 MG Toprol XL 25 MG Toprol XL 25 MG No 1{table t} QD Toprol XL 25 MG biotin biotin No biotin [facility] fenofibrate fenofibrate No fe nofibrat e [facility] fiber fiber No fiber [facility] Fish Oil Fish Oil No Fish Oil [facility] Lantus Solostar U-100 Insulin Lantus Solostar U-100 Insulin No Lantus Solostar U-100 Insulin [facility] Levemir FlexPen Levemir FlexPen No Levemir FlexPen [facility] magnesium magnesium No magnesium [facility] metformin metformin No metformin [facility] metoprolol succinate metoprolol succinate No metoprolol succinate [facility] niacin niacin No niacin [facility] pantoprazol e pantoprazol e No pantoprazo le [facility] Percocet Percocet No Percocet [facility] Protonix 20 mg tablet,jaqueline yed release Take 2 tablets every day by oral route. Protonix 20 mg tablet,jaqueline yed release Take 2 tablets every day by oral route. No 2 Q1D Protonix 20 mg tablet,del ayed release Take 2 tablets every day by oral route. [facility] Ranexa 500 mg tablet,exte nded release Take 1 tablet twice a day by oral route. Ranexa 500 mg tablet,exte nded release Take 1 tablet twice a day by oral route. No 1 BID Ranexa 500 mg tablet,ext ended release Take 1 tablet twice a day by oral route. [facility] rizatriptan rizatriptan No ri zatripta n [facility] trandolapri l 2 mg-verapami l ER 180 mg tablet,imme d-exten release 24 hr Take 1 tablet every day by oral route. trandolapri l 2 mg-verapami l ER 180 mg tablet,imme d-exten release 24 hr Take 1 tablet every day by oral route. No 1 Q1D trandolapr il 2 mg-verapam il ER 180 mg tablet,imm ed-exten release 24 hr Take 1 tablet every day by oral route. [facility] Vitamin D Vitamin D No Vitamin D [facility] Zofran Zofran No Zofran [facility] Vital Signs Vital Name Observation Time Observation Value Comments S ource HEIGHT 2020-06-17 06:40:00 175.3 cm WEIGHT 2020-06-17 06:40:00 72.8 kg HEIGHT 2020-06-12 09:50:00 175.3 cm WEIGHT 2020-06-12 09:50:00 77.111 kg Body Weight 2024-05-18 00:00:00 179 [lb_av] [facility] Height 2024-05-18 00:00:00 69 [in_i] [facility] BMI (Body Mass Index) 2024-05-18 00:00:00 26.4 kg/m2 [facility] BP Systolic 2024-05-18 00:00:00 153 mm[Hg] [facility] BP Diastolic 2024-05-18 00:00:00 92 mm[Hg] [facility] HEIGHT 2024-01-05 12:28:00 175.3 cm WEIGHT 2024-01-05 12:28:00 76.749 kg HEIGHT 2023-12-24 11:07:00 175.3 cm WEIGHT 2023-12-24 11:07:00 78.019 kg HEIGHT 2023-11-17 10:11:00 175.3 cm WEIGHT 2023-11-17 10:11:00 79.8 kg HEIGHT 2023-11-16 08:32:00 175.3 cm WEIGHT 2023-11-16 08:32:00 81.647 kg HEIGHT 2023-11-05 10:56:00 175.3 cm WEIGHT 2023-11-05 10:56:00 81.647 kg HEIGHT 2023-10-22 05:30:00 175.3 cm WEIGHT 2023-10-22 05:30:00 79.379 kg height 2023-01-14 14:45:00 69 [in_i] Commo n [facility] weight 2023-01-14 14:45:00 161 [lb_av] Comm on [facility] temperature 2023-01-14 14:45:00 97.6 [degF] Com [facility] bmi 2023-01-14 14:45:00 23.77 kg/m2 Comm on [facility] blood pressure systolic 2023-01-14 14:45:00 116 mm[Hg] Common [facility] blood pressure diastolic 2023-01-14 14:45:00 72 mm[Hg] [facility] height 2022-12-28 14:00:00 69 [in_i] Commo n [facility] weight 2022-12-28 14:00:00 166 [lb_av] Comm on [facility] temperature 2022-12-28 14:00:00 97.9 [degF] Com [facility] bmi 2022-12-28 14:00:00 24.51 kg/m2 Comm on [facility] blood pressure systolic 2022-12-28 14:00:00 114 mm[Hg] [facility] blood pressure diastolic 2022-12-28 14:00:00 68 mm[Hg] Common [facility] HEIGHT 2020-06-17 06:40:00 175.3 cm WEIGHT 2020-06-17 06:40:00 72.8 kg HEIGHT 2020-06-12 09:50:00 175.3 cm WEIGHT 2020-06-12 09:50:00 77.111 kg height 2020-05-23 09:30:00 69 [in_i] Commo n [facility] weight 2020-05-23 09:30:00 167 [lb_av] Comm on [facility] temperature 2020-05-23 09:30:00 97.3 [degF] Com mon [facility] bmi 2020-05-23 09:30:00 24.66 kg/m2 Comm on [facility] blood pressure systolic 2020-05-23 09:30:00 134 mm[Hg] Common [facility] blood pressure diastolic 2020-05-23 09:30:00 84 mm[Hg] Common [facility] height 2020-03-19 10:00:00 69 [in_i] Commo n [facility] weight 2020-03-19 10:00:00 169 [lb_av] Comm on [facility] temperature 2020-03-19 10:00:00 97.1 [degF] Com [facility] bmi 2020-03-19 10:00:00 24.95 kg/m2 Comm on [facility] blood pressure systolic 2020-03-19 10:00:00 130 mm[Hg] Common [facility] blood pressure diastolic 2020-03-19 10:00:00 84 mm[Hg] Common [facility] height 2020-02-12 13:30:00 69 [in_i] Commo n [facility] weight 2020-02-12 13:30:00 169 [lb_av] Comm on [facility] temperature 2020-02-12 13:30:00 97.1 [degF] Com [facility] bmi 2020-02-12 13:30:00 24.95 kg/m2 Comm on [facility] blood pressure systolic 2020-02-12 13:30:00 111 mm[Hg] Common [facility]iri [facility] blood pressure diastolic 2020-02-12 13:30:00 90 mm[Hg] [facility] height 2020-01-29 09:00:00 69 [in_i] Commo n [facility] weight 2020-01-29 09:00:00 169 [lb_av] Comm on [facility] temperature 2020-01-29 09:00:00 97.1 [degF] Com [facility] bmi 2020-01-29 09:00:00 24.95 kg/m2 Comm on [facility] blood pressure systolic 2020-01-29 09:00:00 118 mm[Hg] Common [facility] blood pressure diastolic 2020-01-29 09:00:00 82 mm[Hg] Common [facility] height 2020-01-18 08:30:00 69 [in_i] Commo n [facility] weight 2020-01-18 08:30:00 169 [lb_av] Comm on [facility] temperature 2020-01-18 08:30:00 97.5 [degF] Com [facility] bmi 2020-01-18 08:30:00 24.95 kg/m2 Comm on [facility] blood pressure systolic 2020-01-18 08:30:00 126 mm[Hg] Common [facility] blood pressure diastolic 2020-01-18 08:30:00 84 mm[Hg] Common [facility]iri [facility] Procedures Procedure Date / Time Performed Performing Clinician Source MAMMO, screening, digital, bilateral 2024-05-18 00:00:00 [facility] Cardiac Revascularization with Bypass Anastomosis 2023-11-17 00:00:00 [facility] Cholecystectomy 2020-06-17 00:00:00 [facility] Procedure on Colon 2020-06-17 00:00:00 [facility] Complete Repair of Rotator Cuff 2020-01-18 00:00:00 [facility] Procedure on Back 2013-04-19 00:00:00 [facility] Endometrial Biopsy 2012-04-19 00:00:00 [facility] Tubal Ligation 1995-04-19 00:00:00 [facility] Hernia Repair [facility] Appendectomy [facility] Encounters Start Date/Time End Date/Time Encounter Type Admission Type Attending Clinicians Care Facility Care Department Encounter ID Source 2022-12-29 07:42:00 Outpatient RailroadAlannah gottlieb [facility] [id number] [facility] 2022-12-25 08:25:00 Outpatient RailroadAlannah gottlieb [facility] [id number] [facility] 2021-05-14 11:50:26 Outpatient Alannah Campa [facility] [id number] [facility] 2021-05-14 11:37:38 Outpatient Alannah Campa [facility] [id number] [facility] 2021-01-25 00:15:34 Inpatient ELLIS, ANTONIO [facility] Surgery [id number] [facility] 2024-05-18 00:00:00 2024-05-18 00:00:00 Katrin Alfred, SKIMMER SCOOP OPERATOR: [address], [place] [address], [place] [address] , Ph. [facility] - [email or web address]_Tracy lugo Sonny* [id number] [facility] 2024-02-09 00:00:00 2024-02-09 00:00:00 Outpatient MAUDE ANDERSON [facility] [id number] [facility] 2024-01-05 12:01:00 2024-01-06 09:30:00 Outpatient MAUDE ANDERSON [facility] Surgery [id number] [facility] 2024-01-06 00:00:00 2024-01-06 00:00:00 [facility] [id number] [facility] 2024-01-05 13:25:43 2024-01-05 13:25:43 [facility] [id number] [facility] 2023-12-29 08:33:35 2023-12-29 23:59:00 [facility] [id number] [facility] 2023-12-24 10:37:41 2023-12-24 10:37:41 Outpatient MAUDE ANDERSON [facility] [id number] [facility] 2023-12-08 00:00:00 2023-12-08 00:00:00 Out[facility] [id number] [facility] 2023-12-08 00:00:00 2023-12-08 00:00:00 Outpatient EMMA ARAUJO SLEM[facility]le [facility] [id number] [facility] 2023-12-08 00:00:00 2023-12-08 00:00:00 Outpatient EMMA ARAUJO SLEMichele [facility] [id number] [facility] 2023-12-01 12:26:14 2023-12-01 12:26:14 [facility] [id number] [facility] 2023-11-21 03:07:06 2023-11-21 03:07:06 Outpatient [facility] [id number] [facility] 2023-11-20 00:25:32 2023-11-20 00:25:32 Outpatient KYLAH LOMBARDI [facility] [id number] [facility] 2023-11-19 02:07:23 2023-11-19 02:07:23 Out[facility] [id number] [facility] 2023-11-18 00:29:18 2023-11-18 00:29:18 Outpatient [facility] [id number] [facility] 2023-11-17 18:49:04 2023-11-17 18:49:04 Outpatient RADHA LO [facility] [id number] [facility] 2023-11-16 00:00:00 2023-11-16 00:00:00 Outpatient MIN VILLASENOR [facility] [id number] [facility] 2023-11-05 10:47:00 2023-11-05 10:47:00 Outpatient MIN [facility]ILLASENOR [facility] [id number] [facility] 2023-10-22 05:27:00 2023-10-23 14:11:00 Outpatient MAUDE ANDERSON [facility] Surgery [id number] [facility] 2023-10-23 07:08:11 2023-10-23 07:08:11 Outpatient [facility] [id number] [facility] 2023-10-22 15:16:15 2023-10-22 15:16:15 Outpatient [facility] [id number] [facility] 2023-10-22 13:28:11 2023-10-22 13:28:11 Outpatient [facility] [id number] [facility] 2023-05-19 00:00:00 2023-05-19 00:00:00 Outpatient GC_GCBZW_Ka diyala_S PRIV PRIV [id number] [facility] 2023-05-17 00:00:00 2023-05-17 00:00:00 Outpatient GC_GCBZW_Ka diyala_S PRIV PRIV [id number] [facility] 2023-05-13 00:00:00 2023-05-13 00:00:00 Outpatient GC_GCBZW_Ka diyala_S PRIV PRIV [id number] [facility] 2023-02-14 00:00:00 2023-02-14 00:00:00 Outpatient GC_GCBZW_Ka diyala_S PRIV PRIV [id number] [facility] 2023-01-14 00:00:00 2023-01-14 00:00:00 OFFICE VISIT ESTAB PT LEVEL 4 STLMLC STLMLC [id number] [facility] 2022-12-28 00:00:00 2022-12-28 00:00:00 OFFICE VISIT ESTAB PT LEVEL 4 STLMLC STLMLC [id number] [facility] 2022-12-28 00:00:00 2022-12-28 00:00:00 (TEL) STLMLC STLMLC [id number] [facility] 2020-06-12 00:00:00 2020-06-12 00:00:00 [facility] [id number] 2020-05-23 00:00:00 2020-05-23 00:00:00 OFFICE VISIT EST PT LEVEL 3 STLMLC STLMLC [id number] [facility] 2020-03-19 00:00:00 2020-03-19 00:00:00 Postop visit STLMLC STLMLC [id number] [facility] 2020-02-12 00:00:00 2020-02-12 00:00:00 NON-BILLAB LE VISIT STLMLC STLMLC [id number] [facility] 2020-01-29 00:00:00 2020-01-29 00:00:00 Postop visit STLMLC STLMLC [id number] [facility] 2020-01-22 00:00:00 2020-01-22 00:00:00 (TEL) STLMLC STLMLC [id number] [facility] 2020-01-18 00:00:00 2020-01-18 00:00:00 OFFICE VISIT ESTAB PT LEVEL 4 STLMLC STLMLC [id number] [facility] 2020-01-10 00:00:00 2020-01-10 00:00:00 (TEL) STLMLC STLMLC [id number] [facility] 2020-01-10 00:00:00 2020-01-10 00:00:00 (TEL) STLMLC STLMLC [id number] [facility] 2019-12-19 09:38:00 2019-12-19 09:38:00 Outpatient [facility] [id number] [facility] 2019-12-15 09:45:00 2019-12-15 09:45:00 Outpatient [facility] [id number] [facility] 2019-12-07 12:55:00 2019-12-07 12:55:00 Outpatient [facility] [id number] [facility] 2019-11-30 15:47:00 2019-11-30 15:47:00 Outpatient [facility] [id number] [facility] 2019-11-30 14:00:00 2019-11-30 14:00:00 Outpatient [facility] [id number] [facility] Results Test Description Test Time Test Comments Results Result Co mments Source BASIC METABOLIC [id number] 05:23:29* Test Item Value Reference Range Interpretation Comme nts SODIUM (BEAKER) (test code = 381) 135 meq/L 136-145 L POTASSIUM (BEAKER) (test code = 379) 4.0 meq/L 3.4-5.1 Specimen slightl y hemolyzed CHLORIDE (BEAKER) (test code = 382) 105 meq/L 98-107 CO2 (BEAKER) (test code = 355) 22 meq/L 22-29 BLOOD UREA NITROGEN (BEAKER) (test code = 354) 12 mg/dL 10-20 CREATININE (BEAKER) (test code = 358) 0.88 mg/dL 0.57-1.11 Specimen slightl y hemolyzed GLUCOSE RANDOM (BEAKER) (test code = 652) 304 mg/dL 70-105 H CALCIUM (BEAKER) (test code = 697) 9.1 mg/dL 8.4-10.2 EGFR (BEAKER) (test code = 1092) 79 mL/min/1.73 sq m Interpretation of eG FR values Stage Description Result G1 Normal or high >=90 G2 Mildly decreased 60-89 G3a Mildly to moderately 45-59 G3b Moderately to severely 30-44 G4 Severly decreased 15-29 G5 Kidney failure <15Reported eGFR is based on the CKD-EPI 2020 equation that does not use a race coefficientEstimated GFR is not as accurate as Creatinine Clearance in predicting glomerular filtration rate. Estimated GFR is not applicable for dialysis patients CBC (HEMOGRAM ONLY)2024-01-06 04:45:32* Test Item Value Reference Range Interpretation Comme nts WHITE BLOOD CELL COUNT (BEAK ER) (test code = 775) 4.2 K/ L 3.5-10.5 RED BLOOD CELL COUNT (BEAKER ) (test code = 761) 4.30 M/ L 3.93-5.22 HEMOGLOBIN (BEAKER) (test co de = 410) 12.1 GM/DL 11.2-15.7 HEMATOCRIT (BEAKER) (test co de = 411) 36.5 % 34.1-44.9 MEAN CORPUSCULAR VOLUME (SAMUEL KER) (test code = 753) 85 fL 79-95 MEAN CORPUSCULAR HEMOGLOBIN (BEAKER) (test code = 751) 28.1 pg 25.6-32.2 MEAN CORPUSCULAR HEMOGLOBIN CONC (BEAKER) (test code = 752) 33.2 GM/DL 32.2-35.5 RED CELL DISTRIBUTION WIDTH (BEAKER) (test code = 412) 13.1 % 11.7-14.4 PLATELET COUNT (BEAKER) (ted t code = 756) 336 K/CU MM 150-450 MEAN PLATELET VOLUME (BEAKER ) (test code = 754) 8.8 fL 9.4-12.3 L NUCLEATED RED BLOOD CELLS (BEAKER) (test code = 413) 0 /100 WBC 0-0 POCT-GLUCOSE [id number] 20:00:14* Test Item Value Reference Range Interpretation Comme nts POC-GLUCOSE METER (BEAKER) (test code = 1538) 158 mg/dL 70-110 H : TESTED AT [facility] [address] [facility], [address]: Iron Miner/Propagator ID = [id number] for Mary Kingston POCT-GLUCOSE [id number] 19:09:09* Test Item Value Reference Range Interpretation Comme nts POC-GLUCOSE METER (BEAKER) (test code = 1538) 171 mg/dL 70-110 H : TESTED AT [place] [id number] [facility], [address]: Iron Miner/Propagator ID = [id number] for Mukul Bravo [id number] 18:22:56* Test Item Value Reference Range Interpretation Comme nts ACTIVATED CLOTTING TIME (BEAKER) (test code = 441) 232 sec : 74-137 seconds , Baseline: TESTED AT [address], [address]: Iron Miner/Propagator ID = [id number] for Jd Dennis [id number] 18:11:12* Test Item Value Reference Range Interpretation Comme nts ACTIVATED CLOTTING TIME (BEAKER) (test code = 441) 220 sec : 74-137 seconds , Baseline: TESTED AT [address], [address]: Iron Miner/Propagator ID = [id number] for Jd Dennis POCT-GLUCOSE [id number] 13:05:40* Test Item Value Reference Range Interpretation Comme nts POC-GLUCOSE METER (BEAKER) (test code = 1538) 284 mg/dL 70-110 H : TESTED AT [address], [address]: Iron Miner/Propagator ID = [id number] for SADAF EDDIECASTILLONubia KIAN MYOCARDIAL PERFUSION PET/CT (REST & STRESS)2023-12-29 13:51:04 [facility] : 1970 Sex: FPROCEDURE: MYOCARDIAL PERFUSION PET IMAGING (Rest/Stress)CPT CODE: [id number]: 53-year-old woman with history of MA in 2016, status postLAD stent, c/o chest pain, presenting forCAD evaluation.CARDIOVASCULAR PROFILE: Symptoms: Chest pain CAD History: Yes, MA in 2016 s/p LAD stent. Risk Factors: Hypertension, diabetes and hyperlipidemia BMI: 25.4 Medications: Aspirin, atorvastatin, glyburide- metformin, LantusSTRESS PROTOCOL: Pharmacologic stress was achieved with a 10-second intravenousinfusion of regadenoson 0.4 mg.IMAGING PROTOCOL: Limited low-dose CT imaging was performed for attenuation correction.39.9 mCi of Rb-82 chloride was injected intravenously at the right handat rest, and PET images were obtained. Then, 39.9 mCi of Rb-82 chloridewas injected intravenously at peak stress, and PET images were obtained.REST FINDINGS: HR: 101 /min BP: 117/75 mmHg Prelim. EKG: Normal sinus rhythm, prolonged QT and nonspecific STand T- wave abnormality-lateral. Perfusion: Normal. Wall Motion: Normal (LVEF 64%). LV Volume: Normal. RV Volume: Normal.STRESS FINDINGS: HR: 106 /min (63% of MPHR) BP: 110/76 mmHg Prelim. EKG: No ischemic changes. Symptoms: None (treatment not required). Perfusion: There is large severe perfusion defect involving theentire anterior wall (basal, mid & distal) and extending to involvethe anteroseptal and anterolateral christian (basal, mid & distal) andapex. Wall Motion: Normal (LVEF 63%). LV Volume: There is transient ischemic dilation (TID= 1.26). CT findings: There is moderate to large pericardial effusion. LAD stentis noted. Small left pleural effusion. Gallbladder is surgically absent.IMPRESSION:1. Abnormal study.2. Abnormal PET-CT myocardial perfusion images. There is a largesevere perfusion defect, completely reversible involving the entireanterior wall (basal, mid & distal) and extending to involve theanteroseptal and anterolateral christian (basal, mid & distal) and apex,indicates ischemia in the LAD territory. There is transient ischemicdilation (TID=1.26), but no left ventricular stunning.3. Normal global LV function, which does not deteriorate with stress.Normal left ventricular size and systolic function (LVEF= 64%). Normalwall motion. 4. CT is notable for moderate to large pericardial effusion (newcomparing to CT chest from 10/2023) and small left pleural effusion. LADstent is noted.5. Normal extracardiac tracer distribution.6. No prior studies available for comparison.Electronically Signed By: Eliza Toussaint12/29/2023 13:53 CDTWorkstation Name: [id number] IF [id number] 12:50:02* Test Item Value Reference Range Interpretation Comme nts THYROID STIMULATING HORMONE (BEAKER) (test code = 772) 1.380 uIU/mL 0.350-4.940 HIGH SENSITIVITY TROPONIN [id number] 12:39:51* Test Item Value Reference Range Interpretation Comme nts HIGH SENSITIVITY TROPONIN I (test code = 4646416) < pg/ml <14 The Alinity ci High Sensitivity Troponin-I results should be used in conjunction with other diagnostic information such as ECG, clinical observations and information, and patient symptoms to aid in the diagnosis of MA.COMPREHENSIVE METABOLIC [id number] 12:29:35* Test Item Value Reference Range Interpretation Comme nts TOTAL PROTEIN (BEAKER) (test code = 770) 7.2 gm/dL 6.4-8.3 ALBUMIN (BEAKER) (test code = 1145) 3.9 g/dL 3.5-5.0 ALKALINE PHOSPHATASE (BEAKER) (test code = 346) 56 U/L 40-150 BILIRUBIN TOTAL (BEAKER) (test code = 377) 0.5 mg/dL 0.2-1.2 SODIUM (BEAKER) (test code = 381) 140 meq/L 136-145 POTASSIUM (BEAKER) (test code = 379) 4.1 meq/L 3.4-5.1 CHLORIDE (BEAKER) (test code = 382) 105 meq/L 98-107 CO2 (BEAKER) (test code = 355) 25 meq/L 22-29 BLOOD UREA NITROGEN (BEAKER) (test code = 354) 14 mg/dL 10-20 CREATININE (BEAKER) (test code = 358) 0.84 mg/dL 0.57-1.11 GLUCOSE RANDOM (BEAKER) (test code = 652) 132 mg/dL 70-105 H CALCIUM (BEAKER) (test code = 697) 9.8 mg/dL 8.4-10.2 AST (SGOT) (BEAKER) (test code = 353) 24 U/L 5-34 ALT (SGPT) (BEAKER) (test code = 347) 28 U/L <55 EGFR (BEAKER) (test code = 1092) 83 mL/min/1.73 sq m Interpretation of eG FR values Stage Description Result G1 Normal or high >=90 G2 Mildly decreased 60-89 G3a Mildly to moderately 45-59 G3b Moderately to severely 30-44 G4 Severly decreased 15-29 G5 Kidney failure <15Reported eGFR is based on the CKD-EPI 2020 equation that does not use a race coefficientEstimated GFR is not as accurate as Creatinine Clearance in predicting glomerular filtration rate. Estimated GFR is not applicable for dialysis patients CBC W/PLT COUNT & AUTO [id number] 12:11:53* Test Item Value Reference Range Interpretation Comme nts WHITE BLOOD CELL COUNT (BEAK ER) (test code = 775) 5.3 K/ L 3.5-10.5 RED BLOOD CELL COUNT (BEAKER ) (test code = 761) 4.56 M/ L 3.93-5.22 HEMOGLOBIN (BEAKER) (test co de = 410) 13.2 GM/DL 11.2-15.7 HEMATOCRIT (BEAKER) (test co de = 411) 40.2 % 34.1-44.9 MEAN CORPUSCULAR VOLUME (SAMUEL KER) (test code = 753) 88 fL 79-95 MEAN CORPUSCULAR HEMOGLOBIN (BEAKER) (test code = 751) 28.9 pg 25.6-32.2 MEAN CORPUSCULAR HEMOGLOBIN CONC (BEAKER) (test code = 752) 32.8 GM/DL 32.2-35.5 RED CELL DISTRIBUTION WIDTH (BEAKER) (test code = 412) 13.2 % 11.7-14.4 PLATELET COUNT (BEAKER) (ted t code = 756) 321 K/CU MM 150-450 MEAN PLATELET VOLUME (BEAKER ) (test code = 754) 9.0 fL 9.4-12.3 L NUCLEATED RED BLOOD CELLS (BEAKER) (test code = 413) 0 /100 WBC 0-0 NEUTROPHILS RELATIVE PERCENT (BEAKER) (test code = 429) 58 % LYMPHOCYTES RELATIVE PERCENT (BEAKER) (test code = 430) 31 % MONOCYTES RELATIVE PERCENT (BEAKER) (test code = 431) 8 % EOSINOPHILS RELATIVE PERCENT (BEAKER) (test code = 432) 2 % BASOPHILS RELATIVE PERCENT (BEAKER) (test code = 437) 1 % NEUTROPHILS ABSOLUTE COUNT (BEAKER) (test code = 670) 3.08 K/ L 1.56-6.13 LYMPHOCYTES ABSOLUTE COUNT (BEAKER) (test code = 414) 1.62 K/ L 1.18-3.74 MONOCYTES ABSOLUTE COUNT (BE GONZALEZ) (test code = 415) 0.41 K/ L 0.24-0.36 H EOSINOPHILS ABSOLUTE COUNT (BEAKER) (test code = 416) 0.10 K/ L 0.04-0.36 BASOPHILS ABSOLUTE COUNT (BE GONZALEZ) (test code = 417) 0.04 K/ L 0.01-0.08 IMMATURE GRANULOCYTES-RELATI VE PERCENT (BEAKER) (test code = 2801) 0.60 % 0.00-1.00 POCT-GLUCOSE [id number] 14:26:08* Test Item Value Reference Range Interpretation Comme nts POC-GLUCOSE METER (BEAKER) (test code = 1538) 354 mg/dL 70-110 H : TESTED AT [facility] [address] [facility], [address]: Iron Miner/Propagator ID = [id number] for Sharif PICKETT POCT-GLUCOSE [id number] 12:44:38* Test Item Value Reference Range Interpretation Comme nts POC-GLUCOSE METER (BEAKER) (test code = 1538) 356 mg/dL 70-110 H : TESTED AT [place] [id number] [facility], [address]: Iron Miner/Propagator ID = [id number] for OSWALDOAlphonseERVINMARIA L RUFINA POCT-GLUCOSE [id number] 08:03:19* Test Item Value Reference Range Interpretation Comme nts POC-GLUCOSE METER (BEAKER) (test code = 1538) 237 mg/dL 70-110 H : TESTED AT [facility] [address] [facility], [address]: Iron Miner/Propagator ID = [id number] for OSWALDONELSON RUFINA [id number] 06:58:33* Test Item Value Reference Range Interpretation Comme nts PHOSPHORUS (BEAKER) (test co de = 604) 2.8 mg/dL 2.3-4.7 BASIC METABOLIC [id number] 06:58:32* Test Item Value Reference Range Interpretation Comme nts SODIUM (BEAKER) (test code = 381) 136 meq/L 136-145 POTASSIUM (BEAKER) (test code = 379) 4.2 meq/L 3.4-5.1 CHLORIDE (BEAKER) (test code = 382) 95 meq/L 98-107 L CO2 (BEAKER) (test code = 355) 27 meq/L 22-29 BLOOD UREA NITROGEN (BEAKER) (test code = 354) 12 mg/dL 10-20 CREATININE (BEAKER) (test code = 358) 0.73 mg/dL 0.57-1.11 GLUCOSE RANDOM (BEAKER) (test code = 652) 255 mg/dL 70-105 H CALCIUM (BEAKER) (test code = 697) 9.4 mg/dL 8.4-10.2 EGFR (BEAKER) (test code = 1092) 98 mL/min/1.73 sq m Interpretation of eG FR values Stage Description Result G1 Normal or high >=90 G2 Mildly decreased 60-89 G3a Mildly to moderately 45-59 G3b Moderately to severely 30-44 G4 Severly decreased 15-29 G5 Kidney failure <15Reported eGFR is based on the CKD-EPI 2020 equation that does not use a race coefficientEstimated GFR is not as accurate as Creatinine Clearance in predicting glomerular filtration rate. Estimated GFR is not applicable for dialysis patients [id number] 06:58:32* Test Item Value Reference Range Interpretation Comme nts MAGNESIUM (BEAKER) (test cod e = 627) 1.8 mg/dL 1.6-2.6 CBC W/PLT COUNT & AUTO [id number] 06:35:04* Test Item Value Reference Range Interpretation Comme nts WHITE BLOOD CELL COUNT (BEAK ER) (test code = 775) 4.0 K/ L 3.5-10.5 RED BLOOD CELL COUNT (BEAKER ) (test code = 761) 3.93 M/ L 3.93-5.22 HEMOGLOBIN (BEAKER) (test co de = 410) 11.6 GM/DL 11.2-15.7 HEMATOCRIT (BEAKER) (test co de = 411) 35.8 % 34.1-44.9 MEAN CORPUSCULAR VOLUME (SAMUEL KER) (test code = 753) 91 fL 79-95 MEAN CORPUSCULAR HEMOGLOBIN (BEAKER) (test code = 751) 29.5 pg 25.6-32.2 MEAN CORPUSCULAR HEMOGLOBIN CONC (BEAKER) (test code = 752) 32.4 GM/DL 32.2-35.5 RED CELL DISTRIBUTION WIDTH (BEAKER) (test code = 412) 12.9 % 11.7-14.4 PLATELET COUNT (BEAKER) (ted t code = 756) 265 K/CU MM 150-450 MEAN PLATELET VOLUME (BEAKER ) (test code = 754) 8.9 fL 9.4-12.3 L NUCLEATED RED BLOOD CELLS (BEAKER) (test code = 413) 0 /100 WBC 0-0 NEUTROPHILS RELATIVE PERCENT (BEAKER) (test code = 429) 61 % LYMPHOCYTES RELATIVE PERCENT (BEAKER) (test code = 430) 23 % MONOCYTES RELATIVE PERCENT (BEAKER) (test code = 431) 11 % EOSINOPHILS RELATIVE PERCENT (BEAKER) (test code = 432) 5 % BASOPHILS RELATIVE PERCENT (BEAKER) (test code = 437) 1 % NEUTROPHILS ABSOLUTE COUNT (BEAKER) (test code = 670) 2.41 K/ L 1.56-6.13 LYMPHOCYTES ABSOLUTE COUNT (BEAKER) (test code = 414) 0.90 K/ L 1.18-3.74 L MONOCYTES ABSOLUTE COUNT (BE GONZALEZ) (test code = 415) 0.42 K/ L 0.24-0.36 H EOSINOPHILS ABSOLUTE COUNT (BEAKER) (test code = 416) 0.20 K/ L 0.04-0.36 BASOPHILS ABSOLUTE COUNT (BE GONZALEZ) (test code = 417) 0.04 K/ L 0.01-0.08 IMMATURE GRANULOCYTES-RELATI VE PERCENT (BEAKER) (test code = 2801) 0.30 % 0.00-1.00 HEMOGLOBIN [id number] 23:53:20* Test Item Value Reference Range Interpretation Comme nts HEMOGLOBIN A1C (BEAKER) (ted t code = 368) 7.9 % 4.3-6.1 H Iron Miner ID - [id number] 22:26:29* Test Item Value Reference Range Interpretation Comme nts POC-GLUCOSE METER (BEAKER) (test code = 1538) 313 mg/dL 70-110 H : Notified RN/MD : TESTED AT [facility] [address] [facility], [address]: Iron Miner/Propagator ID = [id number] for JAMES ROBISON POCT-GLUCOSE [id number] 17:22:44* Test Item Value Reference Range Interpretation Comme nts POC-GLUCOSE METER (BEAKER) (test code = 1538) 258 mg/dL 70-110 H : TESTED AT [address], [address]: Iron Miner/Propagator ID = [id number] for JC ROWLEY POCT-GLUCOSE [id number] 13:53:36* Test Item Value Reference Range Interpretation Comme nts POC-GLUCOSE METER (BEAKER) (test code = 1538) 245 mg/dL 70-110 H : TESTED AT [place] [id number] [facility], [address]: Iron Miner/Propagator ID = [id number] for Sharif PICKETT XR CHEST 1 VIEW PORTABLE / [id number] 12:43:52 [facility]N ROM[facility] : 1970 Sex: FExam: XR CHEST 1 VIEW PORTABLE / BEDSIDEDate: 11/21/2023 12:43 PMIndication:post heart surgeryComparison: YesterdayIMPRESSION:Lines/Tubes:NoneLungs and Pleura : There is a very tiny left lateral pneumothorax. Leftretrocardiac opacity.Heart/Mediastinum:UnchangedBones/Soft Tissues: No acute osseous abnormality.Upper abdomen: Unremarkable.Electronically Signed By: Harry Marie11/21/2023 12:45 CDTWorkstation Name: [id number] 11:56:21* Test Item Value Reference Range Interpretation Comme nts POC-GLUCOSE METER (BEAKER) (test code = 1538) 237 mg/dL 70-110 H : TESTED AT [facility] [address] [facility], [address]: Iron Miner/Propagator ID = [id number] for JC ROWLEY [id number] 11:26:51* Test Item Value Reference Range Interpretation Comme nts MAGNESIUM (BEAKER) (test code = 627) 1.6 mg/dL 1.6-2.6 Specimen sligh tly hemolyzed [id number] 11:26:51* Test Item Value Reference Range Interpretation Comme nts PHOSPHORUS (BEAKER) (test code = 604) 1.8 mg/dL 2.3-4.7 L Specimen sligh tly hemolyzed COMPREHENSIVE METABOLIC [id number] 11:26:51* Test Item Value Reference Range Interpretation Comme nts TOTAL PROTEIN (BEAKER) (test code = 770) 6.7 gm/dL 6.4-8.3 Specimen slightl y hemolyzed ALBUMIN (BEAKER) (test code = 1145) 2.9 g/dL 3.5-5.0 L Specimen slig htly hemolyzed ALKALINE PHOSPHATASE (BEAKER) (test code = 346) 45 U/L 40-150 BILIRUBIN TOTAL (BEAKER) (test code = 377) 0.5 mg/dL 0.2-1.2 Specimen slightl y hemolyzed SODIUM (BEAKER) (test code = 381) 134 meq/L 136-145 L POTASSIUM (BEAKER) (test code = 379) 5.3 meq/L 3.4-5.1 H Specimen sligh tly hemolyzed CHLORIDE (BEAKER) (test code = 382) 94 meq/L 98-107 L CO2 (BEAKER) (test code = 355) 24 meq/L 22-29 BLOOD UREA NITROGEN (BEAKER) (test code = 354) 11 mg/dL 10-20 CREATININE (BEAKER) (test code = 358) 0.76 mg/dL 0.57-1.11 Specimen slightl y hemolyzed GLUCOSE RANDOM (BEAKER) (test code = 652) 256 mg/dL 70-105 H CALCIUM (BEAKER) (test code = 697) 9.2 mg/dL 8.4-10.2 AST (SGOT) (BEAKER) (test code = 353) 29 U/L 5-34 Specimen slightl y hemolyzed ALT (SGPT) (BEAKER) (test code = 347) 26 U/L <55 Specimen slightl y hemolyzed EGFR (BEAKER) (test code = 1092) 94 mL/min/1.73 sq m Interpretation of eG FR values Stage Description Result G1 Normal or high >=90 G2 Mildly decreased 60-89 G3a Mildly to moderately 45-59 G3b Moderately to severely 30-44 G4 Severly decreased 15-29 G5 Kidney failure <15Reported eGFR is based on the CKD-EPI 2020 equation that does not use a race coefficientEstimated GFR is not as accurate as Creatinine Clearance in predicting glomerular filtration rate. Estimated GFR is not applicable for dialysis patients CBC W/PLT COUNT & AUTO [id number] 11:11:59* Test Item Value Reference Range Interpretation Comme nts WHITE BLOOD CELL COUNT (BEAK ER) (test code = 775) 4.6 K/ L 3.5-10.5 RED BLOOD CELL COUNT (BEAKER ) (test code = 761) 3.52 M/ L 3.93-5.22 L HEMOGLOBIN (BEAKER) (test co de = 410) 10.6 GM/DL 11.2-15.7 L HEMATOCRIT (BEAKER) (test co de = 411) 32.0 % 34.1-44.9 L MEAN CORPUSCULAR VOLUME (SAMUEL KER) (test code = 753) 91 fL 79-95 MEAN CORPUSCULAR HEMOGLOBIN (BEAKER) (test code = 751) 30.1 pg 25.6-32.2 MEAN CORPUSCULAR HEMOGLOBIN CONC (BEAKER) (test code = 752) 33.1 GM/DL 32.2-35.5 RED CELL DISTRIBUTION WIDTH (BEAKER) (test code = 412) 13.1 % 11.7-14.4 PLATELET COUNT (BEAKER) (ted t code = 756) 232 K/CU MM 150-450 MEAN PLATELET VOLUME (BEAKER ) (test code = 754) 9.4 fL 9.4-12.3 NUCLEATED RED BLOOD CELLS (BEAKER) (test code = 413) 0 /100 WBC 0-0 NEUTROPHILS RELATIVE PERCENT (BEAKER) (test code = 429) 69 % LYMPHOCYTES RELATIVE PERCENT (BEAKER) (test code = 430) 16 % MONOCYTES RELATIVE PERCENT (BEAKER) (test code = 431) 11 % EOSINOPHILS RELATIVE PERCENT (BEAKER) (test code = 432) 3 % BASOPHILS RELATIVE PERCENT (BEAKER) (test code = 437) 1 % NEUTROPHILS ABSOLUTE COUNT (BEAKER) (test code = 670) 3.15 K/ L 1.56-6.13 LYMPHOCYTES ABSOLUTE COUNT (BEAKER) (test code = 414) 0.75 K/ L 1.18-3.74 L MONOCYTES ABSOLUTE COUNT (BE GONZALEZ) (test code = 415) 0.50 K/ L 0.24-0.36 H EOSINOPHILS ABSOLUTE COUNT (BEAKER) (test code = 416) 0.15 K/ L 0.04-0.36 BASOPHILS ABSOLUTE COUNT (BE GONZALEZ) (test code = 417) 0.03 K/ L 0.01-0.08 IMMATURE GRANULOCYTES-RELATI VE PERCENT (BEAKER) (test code = 2801) 0.20 % 0.00-1.00 POCT-GLUCOSE [id number] 07:24:06* Test Item Value Reference Range Interpretation Comme nts POC-GLUCOSE METER (BEAKER) (test code = 1538) 207 mg/dL 70-110 H : TESTED AT [address], [address]: Iron Miner/Propagator ID = [id number] for JC ROWLEY POCT-GLUCOSE [id number] 21:31:19* Test Item Value Reference Range Interpretation Comme nts POC-GLUCOSE METER (BEAKER) (test code = 1538) 189 mg/dL 70-110 H : TESTED AT [address], [address]: Iron Miner/Propagator ID = [id number] for BABATUNDE REZA POCT-GLUCOSE [id number] 17:25:06* Test Item Value Reference Range Interpretation Comme nts POC-GLUCOSE METER (BEAKER) (test code = 1538) 148 mg/dL 70-110 H : TESTED AT [address], [address]: Iron Miner/Propagator ID = [id number] for JC ROWLEY POCT-GLUCOSE [id number] 12:00:07* Test Item Value Reference Range Interpretation Comme nts POC-GLUCOSE METER (BEAKER) (test code = 1538) 199 mg/dL 70-110 H : TESTED AT [facility] [address] [facility], [address]: Iron Miner/Propagator ID = [id number] for JC ROWLEY XR CHEST 1 VIEW PORTABLE / [id number] 11:16:40 [facility] [place] [facility] ROM[facility] : 1970 Sex: FExam: XR CHEST 1 VIEW PORTABLE / BEDSIDEDate: 11/20/2023 11:16 AMIndication:post heart surgeryComparison: Yesterday.IMPRESSION:Lines/Tubes:Left chest tube.Lungs and Pleura : Small right and moderate left pleural effusions withadjacent hazy opacities. No pneumothorax.Heart/Mediastinum:UnchangedBones/Soft Tissues: No acute osseous abnormality.Upper abdomen: Unremarkable.Electronically Signed By: Harry Marie11/20/2023 11:18 CDTWorkstation Name: [id number] METER 2023-11-20 07:47:15* Test Item Value Reference Range Interpretation Comme nts POC-GLUCOSE METER (BEAKER) (test code = 1538) 169 mg/dL 70-110 H : TESTED AT [facility] [address] [facility], [address]: Iron Miner/Propagator ID = [id number] for JC ROWLEY CALCIUM, [id number] 05:34:16* Test Item Value Reference Range Interpretation Comme nts CALCIUM IONIZED (BEAKER) (te st code = 698) 1.12 mmol/L 1.12-1.27 PH, BLOOD (BEAKER) (test cod e = 1810) 7.35 [id number] 05:08:37* Test Item Value Reference Range Interpretation Comme nts PHOSPHORUS (BEAKER) (test co de = 604) 1.5 mg/dL 2.3-4.7 LL BASIC METABOLIC [id number] 04:55:48* Test Item Value Reference Range Interpretation Comme nts SODIUM (BEAKER) (test code = 381) 136 meq/L 136-145 POTASSIUM (BEAKER) (test code = 379) 4.2 meq/L 3.4-5.1 CHLORIDE (BEAKER) (test code = 382) 97 meq/L 98-107 L CO2 (BEAKER) (test code = 355) 31 meq/L 22-29 H BLOOD UREA NITROGEN (BEAKER) (test code = 354) 13 mg/dL 10-20 CREATININE (BEAKER) (test code = 358) 0.76 mg/dL 0.57-1.11 GLUCOSE RANDOM (BEAKER) (test code = 652) 169 mg/dL 70-105 H CALCIUM (BEAKER) (test code = 697) 8.8 mg/dL 8.4-10.2 EGFR (BEAKER) (test code = 1092) 94 mL/min/1.73 sq m Interpretation of eG FR values Stage Description Result G1 Normal or high >=90 G2 Mildly decreased 60-89 G3a Mildly to moderately 45-59 G3b Moderately to severely 30-44 G4 Severly decreased 15-29 G5 Kidney failure <15Reported eGFR is based on the CKD-EPI 2020 equation that does not use a race coefficientEstimated GFR is not as accurate as Creatinine Clearance in predicting glomerular filtration rate. Estimated GFR is not applicable for dialysis patients [id number] 04:55:48* Test Item Value Reference Range Interpretation Comme nts MAGNESIUM (BEAKER) (test cod e = 627) 1.8 mg/dL 1.6-2.6 CBC W/PLT COUNT & AUTO [id number] 04:34:12* Test Item Value Reference Range Interpretation Comme nts WHITE BLOOD CELL COUNT (BEAK ER) (test code = 775) 5.5 K/ L 3.5-10.5 RED BLOOD CELL COUNT (BEAKER ) (test code = 761) 3.16 M/ L 3.93-5.22 L HEMOGLOBIN (BEAKER) (test co de = 410) 9.4 GM/DL 11.2-15.7 L HEMATOCRIT (BEAKER) (test co de = 411) 28.7 % 34.1-44.9 L MEAN CORPUSCULAR VOLUME (SAMUEL KER) (test code = 753) 91 fL 79-95 MEAN CORPUSCULAR HEMOGLOBIN (BEAKER) (test code = 751) 29.7 pg 25.6-32.2 MEAN CORPUSCULAR HEMOGLOBIN CONC (BEAKER) (test code = 752) 32.8 GM/DL 32.2-35.5 RED CELL DISTRIBUTION WIDTH (BEAKER) (test code = 412) 13.2 % 11.7-14.4 PLATELET COUNT (BEAKER) (ted t code = 756) 156 K/CU MM 150-450 MEAN PLATELET VOLUME (BEAKER ) (test code = 754) 9.0 fL 9.4-12.3 L NUCLEATED RED BLOOD CELLS (BEAKER) (test code = 413) 0 /100 WBC 0-0 NEUTROPHILS RELATIVE PERCENT (BEAKER) (test code = 429) 75 % LYMPHOCYTES RELATIVE PERCENT (BEAKER) (test code = 430) 13 % MONOCYTES RELATIVE PERCENT (BEAKER) (test code = 431) 9 % EOSINOPHILS RELATIVE PERCENT (BEAKER) (test code = 432) 2 % BASOPHILS RELATIVE PERCENT (BEAKER) (test code = 437) 0 % NEUTROPHILS ABSOLUTE COUNT (BEAKER) (test code = 670) 4.11 K/ L 1.56-6.13 LYMPHOCYTES ABSOLUTE COUNT (BEAKER) (test code = 414) 0.74 K/ L 1.18-3.74 L MONOCYTES ABSOLUTE COUNT (BE GONZALEZ) (test code = 415) 0.51 K/ L 0.24-0.36 H EOSINOPHILS ABSOLUTE COUNT (BEAKER) (test code = 416) 0.11 K/ L 0.04-0.36 BASOPHILS ABSOLUTE COUNT (BE GONZALEZ) (test code = 417) 0.02 K/ L 0.01-0.08 IMMATURE GRANULOCYTES-RELATI VE PERCENT (BEAKER) (test code = 2801) 0.40 % 0.00-1.00 POCT-GLUCOSE [id number] 22:29:18* Test Item Value Reference Range Interpretation Comme nts POC-GLUCOSE METER (BEAKER) (test code = 1538) 166 mg/dL 70-110 H : TESTED AT [facility] [address] [facility], [id number]: Iron Miner/Propagator ID = [id number] for Pia Pham POCT-GLUCOSE [id number] 17:08:15* Test Item Value Reference Range Interpretation Comme nts POC-GLUCOSE METER (BEAKER) (test code = 1538) 208 mg/dL 70-110 H : TESTED AT [facility] [address] [facility], [id number]: Iron Miner/Propagator ID = [id number] for [employer] (contract), Naheed POCT-GLUCOSE [id number] 12:32:48* Test Item Value Reference Range Interpretation Comme nts POC-GLUCOSE METER (BEAKER) (test code = 1538) 204 mg/dL 70-110 H : TESTED AT [facility] [address] [facility], [id number]: Iron Miner/Propagator ID = [id number] for [employer] (contract), Naheed XR CHEST 1 VIEW PORTABLE / [id number] 11:11:30 [facility] : 1970 Sex: FXR CHEST 1 VIEW PORTABLE / BEDSIDEINDICATION: post heart surgeryCOMPARISON: Prior day's examTECHNIQUE: Portable frontal view(s) of the chest. FINDINGS: Support Lines and Devices: Stable. Lungs and pleura: Unchanged airspace and pleural opacities. Nopneumothorax identified.Heart andmediastinum: Stable contours. Stable surgical changes.Additional findings: None.IMPRESSION:1. No significant change from prior exam.2. Left retrocardiac opacity, representing singly or in combinationpneumonia, atelectasis, or pleural effusion.Electronically Signed By: Reynaldo Becerril11/19/2023 11:13 CDTWorkstation Name: [id number] METER 2023-11-19 10:34:44* Test Item Value Reference Range Interpretation Comme nts POC-GLUCOSE METER (BEAKER) (test code = 1538) 215 mg/dL 70-110 H : TESTED AT [facility] [address] [facility], [address]: Iron Miner/Propagator ID = [id number] for Ropelato (contract), Naheed LACTIC ACID, [id number] 08:20:45* Test Item Value Reference Range Interpretation Comme nts LACTATE BLOOD ARTERIAL (2) (BEAKER) (test code = 2874) 0.6 mmol/L 0.5-2.0 POCT-GLUCOSE [id number] 08:16:33* Test Item Value Reference Range Interpretation Comme nts POC-GLUCOSE METER (BEAKER) (test code = 1538) 197 mg/dL 70-110 H : TESTED AT [facility] [address] [facility], [address]: Iron Miner/Propagator ID = [id number] for Ropelato (contract), Naheed BASIC METABOLIC [id number] 02:48:59* Test Item Value Reference Range Interpretation Comme nts SODIUM (BEAKER) (test code = 381) 133 meq/L 136-145 L POTASSIUM (BEAKER) (test code = 379) 4.4 meq/L 3.4-5.1 CHLORIDE (BEAKER) (test code = 382) 101 meq/L 98-107 CO2 (BEAKER) (test code = 355) 19 meq/L 22-29 L BLOOD UREA NITROGEN (BEAKER) (test code = 354) 20 mg/dL 10-20 CREATININE (BEAKER) (test code = 358) 1.00 mg/dL 0.57-1.11 GLUCOSE RANDOM (BEAKER) (test code = 652) 187 mg/dL 70-105 H CALCIUM (BEAKER) (test code = 697) 8.6 mg/dL 8.4-10.2 EGFR (BEAKER) (test code = 1092) 67 mL/min/1.73 sq m Interpretation of eG FR values Stage Description Result G1 Normal or high >=90 G2 Mildly decreased 60-89 G3a Mildly to moderately 45-59 G3b Moderately to severely 30-44 G4 Severly decreased 15-29 G5 Kidney failure <15Reported eGFR is based on the CKD-EPI 2020 equation that does not use a race coefficientEstimated GFR is not as accurate as Creatinine Clearance in predicting glomerular filtration rate. Estimated GFR is not applicable for dialysis patients [id number] 02:48:59* Test Item Value Reference Range Interpretation Comme nts MAGNESIUM (BEAKER) (test cod e = 627) 2.0 mg/dL 1.6-2.6 [id number] 02:48:59* Test Item Value Reference Range Interpretation Comme nts PHOSPHORUS (BEAKER) (test co de = 604) 3.8 mg/dL 2.3-4.7 BLOOD GAS, [id number] 02:30:31* Test Item Value Reference Range Interpretation Comme nts PH ARTERIAL (BEAKER) (test c ode = 383) 7.35 7.35-7.45 PCO2 ARTERIAL (BEAKER) (test code = 384) 44 mm Hg 35-45 PO2 ARTERIAL (BEAKER) (test code = 385) 72 mm Hg 80-90 L O2 SATURATION ARTERIAL (BEAK ER) (test code = 386) 93.5 % 96.0-97.0 L HCO3 ARTERIAL (BEAKER) (test code = 388) 23 mmol/L 21-29 BASE EXCESS ARTERIAL (BEAKER ) (test code = 387) -2.3 mmol/L -2.0-3.0 L PATIENT TEMPERATURE (BEAKER) (test code = 1818) 37.1 FIO2 (BEAKER) (test code = 1819) 36.0 SODIUM NA-STAT [id number] 02:30:31* Test Item Value Reference Range Interpretation Comme nts SODIUM (BEAKER) (test code = 381) 131 meq/L 136-145 L HGB/HCT (H&H) - STAT [id number] 02:30:31* Test Item Value Reference Range Interpretation Comme nts HEMOGLOBIN (BEAKER) (test co de = 410) 11.0 GM/DL 12.0-15.0 L HEMATOCRIT (BEAKER) (test co de = 411) 32.0 % 36.0-45.0 L POTASSIUM-STAT [id number] 02:29:15* Test Item Value Reference Range Interpretation Comme nts POTASSIUM (BEAKER) (test cod e = 379) 4.2 meq/L 3.6-5.5 GLUCOSE-STAT [id number] 02:29:10* Test Item Value Reference Range Interpretation Comme nts GLUCOSE RANDOM (BEAKER) (ted t code = 652) 186 mg/dL 70-110 H CALCIUM, [id number] 02:28:09* Test Item Value Reference Range Interpretation Comme nts CALCIUM IONIZED (BEAKER) (te st code = 698) 1.14 mmol/L 1.12-1.27 PH, BLOOD (BEAKER) (test cod e = 1810) 7.35 CBC (HEMOGRAM ONLY)2023-11-19 02:24:26* Test Item Value Reference Range Interpretation Comme nts WHITE BLOOD CELL COUNT (BEAK ER) (test code = 775) 8.0 K/ L 3.5-10.5 RED BLOOD CELL COUNT (BEAKER ) (test code = 761) 3.31 M/ L 3.93-5.22 L HEMOGLOBIN (BEAKER) (test co de = 410) 10.0 GM/DL 11.2-15.7 L HEMATOCRIT (BEAKER) (test co de = 411) 30.7 % 34.1-44.9 L MEAN CORPUSCULAR VOLUME (SAMUEL KER) (test code = 753) 93 fL 79-95 MEAN CORPUSCULAR HEMOGLOBIN (BEAKER) (test code = 751) 30.2 pg 25.6-32.2 MEAN CORPUSCULAR HEMOGLOBIN CONC (BEAKER) (test code = 752) 32.6 GM/DL 32.2-35.5 RED CELL DISTRIBUTION WIDTH (BEAKER) (test code = 412) 13.5 % 11.7-14.4 PLATELET COUNT (BEAKER) (ted t code = 756) 168 K/CU MM 150-450 MEAN PLATELET VOLUME (BEAKER ) (test code = 754) 9.0 fL 9.4-12.3 L NUCLEATED RED BLOOD CELLS (BEAKER) (test code = 413) 0 /100 WBC 0-0 BLOOD GAS, [id number] 21:56:45* Test Item Value Reference Range Interpretation Comme nts PH ARTERIAL (BEAKER) (test c ode = 383) 7.37 7.35-7.45 PCO2 ARTERIAL (BEAKER) (test code = 384) 39 mm Hg 35-45 PO2 ARTERIAL (BEAKER) (test code = 385) 82 mm Hg 80-90 O2 SATURATION ARTERIAL (BEAK ER) (test code = 386) 96.0 % 96.0-97.0 HCO3 ARTERIAL (BEAKER) (test code = 388) 22 mmol/L 21-29 BASE EXCESS ARTERIAL (BEAKER ) (test code = 387) -2.8 mmol/L -2.0-3.0 L PATIENT TEMPERATURE (BEAKER) (test code = 1818) 36.7 FIO2 (BEAKER) (test code = 1819) 40.0 SODIUM NA-STAT [id number] 21:56:45* Test Item Value Reference Range Interpretation Comme nts SODIUM (BEAKER) (test code = 381) 131 meq/L 136-145 L HGB/HCT (H&H) - STAT [id number] 21:56:45* Test Item Value Reference Range Interpretation Comme nts HEMOGLOBIN (BEAKER) (test co de = 410) 11.6 GM/DL 12.0-15.0 L HEMATOCRIT (BEAKER) (test co de = 411) 34.0 % 36.0-45.0 L GLUCOSE-STAT [id number] 21:56:30* Test Item Value Reference Range Interpretation Comme nts GLUCOSE RANDOM (BEAKER) (ted t code = 652) 170 mg/dL 70-110 H POTASSIUM-STAT [id number] 21:56:30* Test Item Value Reference Range Interpretation Comme nts POTASSIUM (BEAKER) (test cod e = 379) 4.0 meq/L 3.6-5.5 POCT-GLUCOSE [id number] 20:12:24* Test Item Value Reference Range Interpretation Comme nts POC-GLUCOSE METER (BEAKER) (test code = 1538) 155 mg/dL 70-110 H : TESTED AT [facility] [address] [place] [address], [address]: Iron Miner/Propagator ID = [id number] for ELDON CRUZ POCT-GLUCOSE [id number] 13:38:49* Test Item Value Reference Range Interpretation Comme nts POC-GLUCOSE METER (BEAKER) (test code = 1538) 160 mg/dL 70-110 H : TESTED AT [facility] [address] [facility], [address]: Iron Miner/Propagator ID = [id number] for KRISH SIMMONS BASIC METABOLIC [id number] 10:50:42* Test Item Value Reference Range Interpretation Comme nts SODIUM (BEAKER) (test code = 381) 133 meq/L 136-145 L POTASSIUM (BEAKER) (test code = 379) 4.3 meq/L 3.4-5.1 CHLORIDE (BEAKER) (test code = 382) 103 meq/L 98-107 CO2 (BEAKER) (test code = 355) 22 meq/L 22-29 BLOOD UREA NITROGEN (BEAKER) (test code = 354) 15 mg/dL 10-20 CREATININE (BEAKER) (test code = 358) 0.84 mg/dL 0.57-1.11 GLUCOSE RANDOM (BEAKER) (test code = 652) 172 mg/dL 70-105 H CALCIUM (BEAKER) (test code = 697) 8.9 mg/dL 8.4-10.2 EGFR (BEAKER) (test code = 1092) 83 mL/min/1.73 sq m Interpretation of eG FR values Stage Description Result G1 Normal or high >=90 G2 Mildly decreased 60-89 G3a Mildly to moderately 45-59 G3b Moderately to severely 30-44 G4 Severly decreased 15-29 G5 Kidney failure <15Reported eGFR is based on the CKD-EPI 2020 equation that does not use a race coefficientEstimated GFR is not as accurate as Creatinine Clearance in predicting glomerular filtration rate. Estimated GFR is not applicable for dialysis patients [id number] 10:46:23* Test Item Value Reference Range Interpretation Comme nts MAGNESIUM (BEAKER) (test cod e = 627) 2.0 mg/dL 1.6-2.6 LACTIC ACID, [id number] 10:35:57* Test Item Value Reference Range Interpretation Comme nts LACTATE BLOOD ARTERIAL (2) (BEAKER) (test code = 2874) 0.8 mmol/L 0.5-2.0 SODIUM NA-STAT [id number] 10:35:01* Test Item Value Reference Range Interpretation Comme nts SODIUM (BEAKER) (test code = 381) 132 meq/L 136-145 L BLOOD GAS, [id number] 10:35:00* Test Item Value Reference Range Interpretation Comme nts PH ARTERIAL (BEAKER) (test c ode = 383) 7.38 7.35-7.45 PCO2 ARTERIAL (BEAKER) (test code = 384) 41 mm Hg 35-45 PO2 ARTERIAL (BEAKER) (test code = 385) 142 mm Hg 80-90 H O2 SATURATION ARTERIAL (BEAK ER) (test code = 386) 98.8 % 96.0-97.0 H HCO3 ARTERIAL (BEAKER) (test code = 388) 24 mmol/L 21-29 BASE EXCESS ARTERIAL (BEAKER ) (test code = 387) -1.4 mmol/L -2.0-3.0 PATIENT TEMPERATURE (BEAKER) (test code = 1818) 36.7 FIO2 (BEAKER) (test code = 1819) 40.0 GLUCOSE-STAT [id number] 10:34:40* Test Item Value Reference Range Interpretation Comme nts GLUCOSE RANDOM (BEAKER) (ted t code = 652) 169 mg/dL 70-110 H POTASSIUM-STAT [id number] 10:34:40* Test Item Value Reference Range Interpretation Comme nts POTASSIUM (BEAKER) (test cod e = 379) 4.1 meq/L 3.6-5.5 HGB/HCT (H&H) - STAT [id number] 10:34:40* Test Item Value Reference Range Interpretation Comme nts HEMOGLOBIN (BEAKER) (test co de = 410) 13.5 GM/DL 12.0-15.0 HEMATOCRIT (BEAKER) (test co de = 411) 40.0 % 36.0-45.0 CBC (HEMOGRAM ONLY)2023-11-18 10:27:16* Test Item Value Reference Range Interpretation Comme nts WHITE BLOOD CELL COUNT (BEAK ER) (test code = 775) 12.3 K/ L 3.5-10.5 H RED BLOOD CELL COUNT (BEAKER ) (test code = 761) 4.13 M/ L 3.93-5.22 HEMOGLOBIN (BEAKER) (test co de = 410) 12.6 GM/DL 11.2-15.7 HEMATOCRIT (BEAKER) (test co de = 411) 37.5 % 34.1-44.9 MEAN CORPUSCULAR VOLUME (SAMUEL KER) (test code = 753) 91 fL 79-95 MEAN CORPUSCULAR HEMOGLOBIN (BEAKER) (test code = 751) 30.5 pg 25.6-32.2 MEAN CORPUSCULAR HEMOGLOBIN CONC (BEAKER) (test code = 752) 33.6 GM/DL 32.2-35.5 RED CELL DISTRIBUTION WIDTH (BEAKER) (test code = 412) 13.2 % 11.7-14.4 PLATELET COUNT (BEAKER) (ted t code = 756) 249 K/CU MM 150-450 MEAN PLATELET VOLUME (BEAKER ) (test code = 754) 8.8 fL 9.4-12.3 L NUCLEATED RED BLOOD CELLS (BEAKER) (test code = 413) 0 /100 WBC 0-0 XR CHEST 1 VIEW PORTABLE / [id number] 10:05:26 [facility] : 1970 Sex: FXR CHEST 1 VIEW PORTABLE / BEDSIDEINDICATION: Status post CV SurgeryCOMPARISON: Prior day's examTECHNIQUE: Portable frontal view(s) of the chest. FINDINGS: Support Lines and Devices:Stable. Lungs and pleura: Unchanged airspace and pleural opacities. Nopneumothorax identified.Heartand mediastinum: Stable contours. Stable surgical changes.Additional findings: None.IMPRESSION:1. No significant change from prior exam.2. Left retrocardiac opacity, representing singly or in combinat ionpneumonia, atelectasis, or pleural effusion.Electronically Signed By: Reynaldo Becerril11/18/2023 10:07 CDTWorkstation Name: [id number] METER 2023-11-18 09:32:39* Test Item Value Reference Range Interpretation Comme nts POC-GLUCOSE METER (BEAKER) (test code = 1538) 169 mg/dL 70-110 H : TESTED AT [facility] [address] [facility], [address]: Iron Miner/Propagator ID = [id number] for Sumi Munguia POCT-GLUCOSE [id number] 05:56:57* Test Item Value Reference Range Interpretation Comme nts POC-GLUCOSE METER (BEAKER) (test code = 1538) 162 mg/dL 70-110 H : TESTED AT [facility] [address] [facility], [address]: Iron Miner/Propagator ID = [id number] for Javier (contract), Tawanna POCT-GLUCOSE [id number] 04:28:50* Test Item Value Reference Range Interpretation Comme nts POC-GLUCOSE METER (BEAKER) (test code = 1538) 172 mg/dL 70-110 H : TESTED AT [facility] [address] [facility], [address]: Iron Miner/Propagator ID = [id number] for Javier (contract), Tawanna POCT-GLUCOSE [id number] 02:45:16* Test Item Value Reference Range Interpretation Comme nts POC-GLUCOSE METER (BEAKER) (test code = 1538) 190 mg/dL 70-110 H : TESTED AT [place] [id number] [facility], [address]: Iron Miner/Propagator ID = [id number] for Javier (contract), Tawanna XR CHEST 1 VIEW PORTABLE / [id number] 02:10:04 [facility] : 1970 Sex: FHistory: s/p ACB.Comparison: None.Findings:A single view of the chest is submitted.The cardiomediastinal contours are unremarkable. The lung volumes are low but equally aerated. Retrocardiac opacity mayreflect atelectasis. Pneumonitis should be excluded clinically. There is no pneumothorax, large pleural collection, evidence of overtpulmonary edema or acute bony abnormality.A right IJ CVC tip overlies the cavoatrial junction. A left-sided chesttube is in place.Electronically Signed By: Rodrigo Camarena11/18/2023 02:12 CDTWorkstation Name: [id number] METABOLIC [id number] 01:46:44* Test Item Value Reference Range Interpretation Comme nts SODIUM (BEAKER) (test code = 381) 138 meq/L 136-145 POTASSIUM (BEAKER) (test code = 379) 3.9 meq/L 3.4-5.1 CHLORIDE (BEAKER) (test code = 382) 105 meq/L 98-107 CO2 (BEAKER) (test code = 355) 24 meq/L 22-29 BLOOD UREA NITROGEN (BEAKER) (test code = 354) 12 mg/dL 10-20 CREATININE (BEAKER) (test code = 358) 0.68 mg/dL 0.57-1.11 GLUCOSE RANDOM (BEAKER) (test code = 652) 221 mg/dL 70-105 H CALCIUM (BEAKER) (test code = 697) 7.6 mg/dL 8.4-10.2 L Discordant res ult compared to previous; clinical correlation required. EGFR (BEAKER) (test code = 1092) 104 mL/min/1.73 sq m Interpretation of eG FR values Stage Description Result G1 Normal or high >=90 G2 Mildly decreased 60-89 G3a Mildly to moderately 45-59 G3b Moderately to severely 30-44 G4 Severly decreased 15-29 G5 Kidney failure <15Reported eGFR is based on the CKD-EPI 2020 equation that does not use a race coefficientEstimated GFR is not as accurate as Creatinine Clearance in predicting glomerular filtration rate. Estimated GFR is not applicable for dialysis patients [id number] 01:26:16* Test Item Value Reference Range Interpretation Comme nts MAGNESIUM (BEAKER) (test cod e = 627) 2.1 mg/dL 1.6-2.6 [id number] 01:26:16* Test Item Value Reference Range Interpretation Comme nts PHOSPHORUS (BEAKER) (test co de = 604) 3.4 mg/dL 2.3-4.7 LACTIC ACID, [id number] 01:22:34* Test Item Value Reference Range Interpretation Comme nts LACTATE BLOOD ARTERIAL (2) (BEAKER) (test code = 2874) 0.9 mmol/L 0.5-2.0 CALCIUM, [id number] 01:12:33* Test Item Value Reference Range Interpretation Comme nts CALCIUM IONIZED (BEAKER) (te st code = 698) 1.06 mmol/L 1.12-1.27 L PH, BLOOD (BEAKER) (test cod e = 1810) 7.39 BLOOD GAS, [id number] 01:12:23* Test Item Value Reference Range Interpretation Comme nts PH ARTERIAL (BEAKER) (test c ode = 383) 7.40 7.35-7.45 PCO2 ARTERIAL (BEAKER) (test code = 384) 44 mm Hg 35-45 PO2 ARTERIAL (BEAKER) (test code = 385) 134 mm Hg 80-90 H O2 SATURATION ARTERIAL (BEAK ER) (test code = 386) 98.7 % 96.0-97.0 H HCO3 ARTERIAL (BEAKER) (test code = 388) 26 mmol/L 21-29 BASE EXCESS ARTERIAL (BEAKER ) (test code = 387) 1.0 mmol/L -2.0-3.0 PATIENT TEMPERATURE (BEAKER) (test code = 1818) 36.5 FIO2 (BEAKER) (test code = 1819) 52.0 CBC (HEMOGRAM ONLY)2023-11-18 01:12:12* Test Item Value Reference Range Interpretation Comme nts WHITE BLOOD CELL COUNT (BEAK ER) (test code = 775) 8.6 K/ L 3.5-10.5 RED BLOOD CELL COUNT (BEAKER ) (test code = 761) 3.79 M/ L 3.93-5.22 L HEMOGLOBIN (BEAKER) (test co de = 410) 11.5 GM/DL 11.2-15.7 HEMATOCRIT (BEAKER) (test co de = 411) 34.1 % 34.1-44.9 MEAN CORPUSCULAR VOLUME (SAMUEL KER) (test code = 753) 90 fL 79-95 MEAN CORPUSCULAR HEMOGLOBIN (BEAKER) (test code = 751) 30.3 pg 25.6-32.2 MEAN CORPUSCULAR HEMOGLOBIN CONC (BEAKER) (test code = 752) 33.7 GM/DL 32.2-35.5 RED CELL DISTRIBUTION WIDTH (BEAKER) (test code = 412) 13.0 % 11.7-14.4 PLATELET COUNT (BEAKER) (ted t code = 756) 193 K/CU MM 150-450 MEAN PLATELET VOLUME (BEAKER ) (test code = 754) 8.9 fL 9.4-12.3 L NUCLEATED RED BLOOD CELLS (BEAKER) (test code = 413) 0 /100 WBC 0-0 GLUCOSE-STAT [id number] 01:11:52* Test Item Value Reference Range Interpretation Comme nts GLUCOSE RANDOM (BEAKER) (ted t code = 652) 219 mg/dL 70-110 H SODIUM NA-STAT [id number] 01:11:52* Test Item Value Reference Range Interpretation Comme nts SODIUM (BEAKER) (test code = 381) 136 meq/L 136-145 POTASSIUM-STAT [id number] 01:11:52* Test Item Value Reference Range Interpretation Comme nts POTASSIUM (BEAKER) (test cod e = 379) 3.8 meq/L 3.6-5.5 HGB/HCT (H&H) - STAT [id number] 01:11:52* Test Item Value Reference Range Interpretation Comme nts HEMOGLOBIN (BEAKER) (test co de = 410) 12.5 GM/DL 12.0-15.0 HEMATOCRIT (BEAKER) (test co de = 411) 37.0 % 36.0-45.0 POCT-GLUCOSE [id number] 23:37:57* Test Item Value Reference Range Interpretation Comme nts POC-GLUCOSE METER (BEAKER) (test code = 1538) 243 mg/dL 70-110 H : TESTED AT [facility] [address] [place] [address], [address]: Iron Miner/Propagator ID = [id number] for Javier (contract)Tawanna LACTIC ACID, [id number] 21:43:01* Test Item Value Reference Range Interpretation Comme nts LACTATE BLOOD ARTERIAL (2) (BEAKER) (test code = 3381) 0.7 mmol/L 0.5-2.0 Specimen slig htly hemolyzed BLOOD GAS, [id number] 21:36:57* Test Item Value Reference Range Interpretation Comme nts PH ARTERIAL (BEAKER) (test c ode = 383) 7.36 7.35-7.45 PCO2 ARTERIAL (BEAKER) (test code = 384) 41 mm Hg 35-45 PO2 ARTERIAL (BEAKER) (test code = 385) 120 mm Hg 80-90 H O2 SATURATION ARTERIAL (BEAK ER) (test code = 386) 98.2 % 96.0-97.0 H HCO3 ARTERIAL (BEAKER) (test code = 388) 22 mmol/L 21-29 BASE EXCESS ARTERIAL (BEAKER ) (test code = 387) -3.0 mmol/L -2.0-3.0 L PATIENT TEMPERATURE (BEAKER) (test code = 1818) 37.0 SODIUM NA-STAT [id number] 21:36:42* Test Item Value Reference Range Interpretation Comme nts SODIUM (BEAKER) (test code = 381) 136 meq/L 136-145 POTASSIUM-STAT [id number] 21:36:42* Test Item Value Reference Range Interpretation Comme nts POTASSIUM (BEAKER) (test cod e = 379) 3.6 meq/L 3.6-5.5 HGB/HCT (H&H) - STAT [id number] 21:36:42* Test Item Value Reference Range Interpretation Comme nts HEMOGLOBIN (BEAKER) (test co de = 410) 14.0 GM/DL 12.0-15.0 HEMATOCRIT (BEAKER) (test co de = 411) 41.0 % 36.0-45.0 GLUCOSE-STAT [id number] 21:36:37* Test Item Value Reference Range Interpretation Comme nts GLUCOSE RANDOM (BEAKER) (ted t code = 652) 273 mg/dL 70-110 H PT/[id number] 19:29:40* Test Item Value Reference Range Interpretation Comme nts PROTIME (BEAKER) (test code = 759) 13.3 seconds 11.9-14.2 INR (BEAKER) (test code = 370) 1.00 <=5.90 PARTIAL THROMBOPLASTIN TIME (BEAKER) (test code = 760) 56.1 seconds 22.5-36.0 H RECOMMENDED COUMADIN/WARFARIN INR THERAPY RANGESSTANDARD DOSE: 2.0 - 3.0 Includes: PROPHYLAXIS for venous thrombosis, systemic embolization; TREATMENT for venous thrombosis and/or pulmonary embolus.HIGH RISK: Target INR is 2.5-3.5 for patients with mechanical heart valves.[id number] 19:28:59* Test Item Value Reference Range Interpretation Comme nts FIBRINOGEN LEVEL (BEAKER) (t est code = 658) 189 mg/dl 225-434 L COMPREHENSIVE METABOLIC [id number] 19:18:59* Test Item Value Reference Range Interpretation Comme nts TOTAL PROTEIN (BEAKER) (test code = 770) 6.1 gm/dL 6.4-8.3 L ALBUMIN (BEAKER) (test code = 1145) 3.8 g/dL 3.5-5.0 ALKALINE PHOSPHATASE (BEAKER) (test code = 346) 47 U/L 40-150 BILIRUBIN TOTAL (BEAKER) (test code = 377) 0.8 mg/dL 0.2-1.2 SODIUM (BEAKER) (test code = 381) 138 meq/L 136-145 POTASSIUM (BEAKER) (test code = 379) 3.9 meq/L 3.4-5.1 CHLORIDE (BEAKER) (test code = 382) 106 meq/L 98-107 CO2 (BEAKER) (test code = 355) 23 meq/L 22-29 BLOOD UREA NITROGEN (BEAKER) (test code = 354) 14 mg/dL 10-20 CREATININE (BEAKER) (test code = 358) 0.88 mg/dL 0.57-1.11 GLUCOSE RANDOM (BEAKER) (test code = 652) 253 mg/dL 70-105 H CALCIUM (BEAKER) (test code = 697) 9.3 mg/dL 8.4-10.2 AST (SGOT) (BEAKER) (test code = 353) 57 U/L 5-34 H ALT (SGPT) (BEAKER) (test code = 347) 57 U/L <55 H EGFR (BEAKER) (test code = 1092) 79 mL/min/1.73 sq m Interpretation of eG FR values Stage Description Result G1 Normal or high >=90 G2 Mildly decreased 60-89 G3a Mildly to moderately 45-59 G3b Moderately to severely 30-44 G4 Severly decreased 15-29 G5 Kidney failure <15Reported eGFR is based on the CKD-EPI 2020 equation that does not use a race coefficientEstimated GFR is not as accurate as Creatinine Clearance in predicting glomerular filtration rate. Estimated GFR is not applicable for dialysis patients [id number] 19:18:59* Test Item Value Reference Range Interpretation Comme nts MAGNESIUM (BEAKER) (test cod e = 627) 1.7 mg/dL 1.6-2.6 [id number] 19:18:59* Test Item Value Reference Range Interpretation Comme nts PHOSPHORUS (BEAKER) (test co de = 604) 3.6 mg/dL 2.3-4.7 LACTIC ACID, [id number] 19:13:19* Test Item Value Reference Range Interpretation Comme nts LACTATE BLOOD ARTERIAL (2) (BEAKER) (test code = 2874) 0.8 mmol/L 0.5-2.0 Specimen slig htly hemolyzed CBC W/PLT COUNT & AUTO [id number] 19:08:15* Test Item Value Reference Range Interpretation Comme nts WHITE BLOOD CELL COUNT (BEAK ER) (test code = 775) 13.2 K/ L 3.5-10.5 H RED BLOOD CELL COUNT (BEAKER ) (test code = 761) 4.18 M/ L 3.93-5.22 HEMOGLOBIN (BEAKER) (test co de = 410) 12.7 GM/DL 11.2-15.7 HEMATOCRIT (BEAKER) (test co de = 411) 37.6 % 34.1-44.9 MEAN CORPUSCULAR VOLUME (SAMUEL KER) (test code = 753) 90 fL 79-95 MEAN CORPUSCULAR HEMOGLOBIN (BEAKER) (test code = 751) 30.4 pg 25.6-32.2 MEAN CORPUSCULAR HEMOGLOBIN CONC (BEAKER) (test code = 752) 33.8 GM/DL 32.2-35.5 RED CELL DISTRIBUTION WIDTH (BEAKER) (test code = 412) 13.1 % 11.7-14.4 PLATELET COUNT (BEAKER) (ted t code = 756) 247 K/CU MM 150-450 MEAN PLATELET VOLUME (BEAKER ) (test code = 754) 8.8 fL 9.4-12.3 L NUCLEATED RED BLOOD CELLS (BEAKER) (test code = 413) 0 /100 WBC 0-0 NEUTROPHILS RELATIVE PERCENT (BEAKER) (test code = 429) 81 % LYMPHOCYTES RELATIVE PERCENT (BEAKER) (test code = 430) 12 % MONOCYTES RELATIVE PERCENT (BEAKER) (test code = 431) 6 % EOSINOPHILS RELATIVE PERCENT (BEAKER) (test code = 432) 0 % BASOPHILS RELATIVE PERCENT (BEAKER) (test code = 437) 0 % NEUTROPHILS ABSOLUTE COUNT (BEAKER) (test code = 670) 10.70 K/ L 1.56-6.13 H LYMPHOCYTES ABSOLUTE COUNT (BEAKER) (test code = 414) 1.53 K/ L 1.18-3.74 MONOCYTES ABSOLUTE COUNT (BE GONZALEZ) (test code = 415) 0.79 K/ L 0.24-0.36 H EOSINOPHILS ABSOLUTE COUNT (BEAKER) (test code = 416) 0.02 K/ L 0.04-0.36 L BASOPHILS ABSOLUTE COUNT (BE GONZALEZ) (test code = 417) 0.03 K/ L 0.01-0.08 IMMATURE GRANULOCYTES-RELATI VE PERCENT (BEAKER) (test code = 2801) 0.80 % 0.00-1.00 BLOOD GAS, [id number] 18:53:34* Test Item Value Reference Range Interpretation Comme nts PH ARTERIAL (BEAKER) (test c ode = 383) 7.38 7.35-7.45 PCO2 ARTERIAL (BEAKER) (test code = 384) 47 mm Hg 35-45 H PO2 ARTERIAL (BEAKER) (test code = 385) 99 mm Hg 80-90 H O2 SATURATION ARTERIAL (BEAK ER) (test code = 386) 97.5 % 96.0-97.0 H HCO3 ARTERIAL (BEAKER) (test code = 388) 27 mmol/L 21-29 BASE EXCESS ARTERIAL (BEAKER ) (test code = 387) 1.0 mmol/L -2.0-3.0 PATIENT TEMPERATURE (BEAKER) (test code = 1818) 36.2 FIO2 (BEAKER) (test code = 1819) 80.0 CALCIUM, [id number] 18:53:34* Test Item Value Reference Range Interpretation Comme nts CALCIUM IONIZED (BEAKER) (te st code = 698) 1.17 mmol/L 1.12-1.27 PH, BLOOD (BEAKER) (test cod e = 1810) 7.36 [id number] 18:01:59* Test Item Value Reference Range Interpretation Comme nts ACTIVATED CLOTTING TIME (BEAKER) (test code = 441) 250 sec : 74-137 seconds , Baseline: TESTED AT [place] [id number] [facility], [address]: Iron Miner/Propagator ID = [id number] for Aspen Bains [id number] 17:57:56* Test Item Value Reference Range Interpretation Comme nts ACTIVATED CLOTTING TIME (BEAKER) (test code = 441) 214 sec : 74-137 seconds , Baseline: TESTED AT [place] [id number] [facility], [address]: Iron Miner/Propagator ID = [id number] for SHIVANI HERMOSILLO BLOOD GAS, [id number] 17:52:01* Test Item Value Reference Range Interpretation Comme nts PH ARTERIAL (BEAKER) (test c ode = 383) 7.34 7.35-7.45 L PCO2 ARTERIAL (BEAKER) (test code = 384) 50 mm Hg 35-45 H PO2 ARTERIAL (BEAKER) (test code = 385) 172 mm Hg 80-90 H O2 SATURATION ARTERIAL (BEAK ER) (test code = 386) 99.0 % 96.0-97.0 H HCO3 ARTERIAL (BEAKER) (test code = 388) 26 mmol/L 21-29 BASE EXCESS ARTERIAL (BEAKER ) (test code = 387) 0.2 mmol/L -2.0-3.0 PATIENT TEMPERATURE (BEAKER) (test code = 1818) 37.8 FIO2 (BEAKER) (test code = 1819) 36.0 POTASSIUM-STAT [id number] 17:52:01* Test Item Value Reference Range Interpretation Comme nts POTASSIUM (BEAKER) (test cod e = 379) 3.4 meq/L 3.6-5.5 L CALCIUM, [id number] 17:51:40* Test Item Value Reference Range Interpretation Comme nts CALCIUM IONIZED (BEAKER) (te st code = 698) 1.20 mmol/L 1.12-1.27 PH, BLOOD (BEAKER) (test cod e = 1810) 7.35 GLUCOSE-STAT [id number] 17:51:25* Test Item Value Reference Range Interpretation Comme nts GLUCOSE RANDOM (BEAKER) (ted t code = 652) 224 mg/dL 70-110 H SODIUM NA-STAT [id number] 17:51:25* Test Item Value Reference Range Interpretation Comme nts SODIUM (BEAKER) (test code = 381) 137 meq/L 136-145 HGB/HCT (H&H) - STAT [id number] 17:51:25* Test Item Value Reference Range Interpretation Comme nts HEMOGLOBIN (BEAKER) (test co de = 410) 12.3 GM/DL 12.0-15.0 HEMATOCRIT (BEAKER) (test co de = 411) 36.0 % 36.0-45.0 BLOOD GAS, [id number] 17:18:20* Test Item Value Reference Range Interpretation Comme nts PH ARTERIAL (BEAKER) (test c ode = 383) 7.39 7.35-7.45 PCO2 ARTERIAL (BEAKER) (test code = 384) 45 mm Hg 35-45 PO2 ARTERIAL (BEAKER) (test code = 385) 107 mm Hg 80-90 H O2 SATURATION ARTERIAL (BEAK ER) (test code = 386) 98.0 % 96.0-97.0 H HCO3 ARTERIAL (BEAKER) (test code = 388) 27 mmol/L 21-29 BASE EXCESS ARTERIAL (BEAKER ) (test code = 387) 1.1 mmol/L -2.0-3.0 PATIENT TEMPERATURE (BEAKER) (test code = 1818) 36.0 FIO2 (BEAKER) (test code = 1819) 100.0 CALCIUM, [id number] 17:18:20* Test Item Value Reference Range Interpretation Comme nts CALCIUM IONIZED (BEAKER) (te st code = 698) 1.29 mmol/L 1.12-1.27 H PH, BLOOD (BEAKER) (test cod e = 1810) 7.37 HGB/HCT (H&H) - STAT [id number] 17:18:20* Test Item Value Reference Range Interpretation Comme nts HEMOGLOBIN (BEAKER) (test co de = 410) 12.0 GM/DL 12.0-15.0 HEMATOCRIT (BEAKER) (test co de = 411) 35.0 % 36.0-45.0 L GLUCOSE-STAT [id number] 17:18:15* Test Item Value Reference Range Interpretation Comme nts GLUCOSE RANDOM (BEAKER) (ted t code = 652) 229 mg/dL 70-110 H SODIUM NA-STAT [id number] 17:18:15* Test Item Value Reference Range Interpretation Comme nts SODIUM (BEAKER) (test code = 381) 135 meq/L 136-145 L POTASSIUM-STAT [id number] 17:18:15* Test Item Value Reference Range Interpretation Comme nts POTASSIUM (BEAKER) (test cod e = 379) 3.6 meq/L 3.6-5.5 [id number] 16:53:07* Test Item Value Reference Range Interpretation Comme nts ACTIVATED CLOTTING TIME (BEAKER) (test code = 441) 85 sec : 74-137 seconds , Baseline: TESTED AT [address], [address]: Iron Miner/Propagator ID = [id number] for Bains, [place] CALCIUM, [id number] 16:26:45* Test Item Value Reference Range Interpretation Comme nts CALCIUM IONIZED (BEAKER) (te st code = 698) 1.03 mmol/L 1.12-1.27 L PH, BLOOD (BEAKER) (test cod e = 1810) 7.37 BLOOD GAS, [id number] 16:26:45* Test Item Value Reference Range Interpretation Comme nts PH ARTERIAL (BEAKER) (test c ode = 383) 7.39 7.35-7.45 PCO2 ARTERIAL (BEAKER) (test code = 384) 45 mm Hg 35-45 PO2 ARTERIAL (BEAKER) (test code = 385) 111 mm Hg 80-90 H O2 SATURATION ARTERIAL (BEAK ER) (test code = 386) 98.2 % 96.0-97.0 H HCO3 ARTERIAL (BEAKER) (test code = 388) 27 mmol/L 21-29 BASE EXCESS ARTERIAL (BEAKER ) (test code = 387) 1.0 mmol/L -2.0-3.0 PATIENT TEMPERATURE (BEAKER) (test code = 1818) 35.6 FIO2 (BEAKER) (test code = 1819) 100.0 GLUCOSE-STAT [id number] 16:26:24* Test Item Value Reference Range Interpretation Comme nts GLUCOSE RANDOM (BEAKER) (ted t code = 652) 241 mg/dL 70-110 H SODIUM NA-STAT [id number] 16:26:24* Test Item Value Reference Range Interpretation Comme nts SODIUM (BEAKER) (test code = 381) 137 meq/L 136-145 POTASSIUM-STAT [id number] 16:26:24* Test Item Value Reference Range Interpretation Comme nts POTASSIUM (BEAKER) (test cod e = 379) 3.6 meq/L 3.6-5.5 HGB/HCT (H&H) - STAT [id number] 16:26:24* Test Item Value Reference Range Interpretation Comme nts HEMOGLOBIN (BEAKER) (test co de = 410) 12.8 GM/DL 12.0-15.0 HEMATOCRIT (BEAKER) (test co de = 411) 38.0 % 36.0-45.0 CALCIUM, [id number] 14:18:33* Test Item Value Reference Range Interpretation Comme nts CALCIUM IONIZED (BEAKER) (te st code = 698) 1.08 mmol/L 1.12-1.27 L PH, BLOOD (BEAKER) (test cod e = 1810) 7.46 BLOOD GAS, [id number] 14:18:33* Test Item Value Reference Range Interpretation Comme nts PH ARTERIAL (BEAKER) (test c ode = 383) 7.47 7.35-7.45 H PCO2 ARTERIAL (BEAKER) (test code = 384) 36 mm Hg 35-45 PO2 ARTERIAL (BEAKER) (test code = 385) 144 mm Hg 80-90 H O2 SATURATION ARTERIAL (BEAK ER) (test code = 386) 99.0 % 96.0-97.0 H HCO3 ARTERIAL (BEAKER) (test code = 388) 26 mmol/L 21-29 BASE EXCESS ARTERIAL (BEAKER ) (test code = 387) 2.0 mmol/L -2.0-3.0 PATIENT TEMPERATURE (BEAKER) (test code = 1818) 36.8 FIO2 (BEAKER) (test code = 1819) 97.0 GLUCOSE-STAT [id number] 14:18:13* Test Item Value Reference Range Interpretation Comme nts GLUCOSE RANDOM (BEAKER) (ted t code = 652) 234 mg/dL 70-110 H SODIUM NA-STAT [id number] 14:18:13* Test Item Value Reference Range Interpretation Comme nts SODIUM (BEAKER) (test code = 381) 136 meq/L 136-145 POTASSIUM-STAT [id number] 14:18:13* Test Item Value Reference Range Interpretation Comme nts POTASSIUM (BEAKER) (test cod e = 379) 3.8 meq/L 3.6-5.5 HGB/HCT (H&H) - STAT [id number] 14:18:13* Test Item Value Reference Range Interpretation Comme nts HEMOGLOBIN (BEAKER) (test co de = 410) 13.4 GM/DL 12.0-15.0 HEMATOCRIT (BEAKER) (test co de = 411) 39.0 % 36.0-45.0 POCT-GLUCOSE [id number] 11:08:45* Test Item Value Reference Range Interpretation Comme nts POC-GLUCOSE METER (BEAKER) (test code = 1538) 299 mg/dL 70-110 H : TESTED AT [facility] [address] [place], [address]: Iron Miner/Propagator ID = [id number] for STACIA COMBS HEMOGLOBIN [id number] 11:43:10* Test Item Value Reference Range Interpretation Comme nts HEMOGLOBIN A1C ELECTROPHORESIS (BEAKER) (test code = 3811) 8.8 % See_Comment H [Automated me ssage] The system which generated this result transmitted reference range: <=5.6%. The reference range was not used to interpret this result as normal/abnormal. "The A1c is measured using a NGSP-certified method. HbA1c value equal to or greater than 6.5% as the diagnosis cutoff for diabetes. An HbA1c value of 5.7- 6.4% indicates increased risk for diabetes (prediabetes)."Iron Miner ID - ADM [id number] 13:26:43* Test Item Value Reference Range Interpretation Comme nts MAGNESIUM (BEAKER) (test cod e = 627) 1.3 mg/dL 1.6-2.6 L LIPID [id number] 13:26:43* Test Item Value Reference Range Interpretation Comme nts TRIGLYCERIDES (BEAKER) (test code = 540) 208 mg/dL CHOLESTEROL (BEAKER) (test c ode = 631) 116 mg/dL HDL CHOLESTEROL (BEAKER) (te st code = 976) 30 mg/dL LDL CHOLESTEROL CALCULATED ( BEAKER) (test code = 633) 44 mg/dL Triglyceride Reference Range: Low Risk <150 Borderline 150-199 High Risk 200-499 Very High Risk >=500Cholesterol Reference Range: Low Risk <200 Borderline 200-239 High Risk >240HDL Cholesterol Reference Range: Low Risk >=60 High Risk <40LDL Cholesterol Reference Range: Optimal <100 Near Optimal 100-129 Borderline 130-159 High 160-189 Very High >=[id number] 13:25:24* Test Item Value Reference Range Interpretation Comme nts PARTIAL THROMBOPLASTIN TIME (BEAKER) (test code = 760) 26.1 seconds 22.5-36.0 PROTHROMBIN [id number] 13:24:58* Test Item Value Reference Range Interpretation Comme nts PROTIME (BEAKER) (test code = 759) 12.4 seconds 11.9-14.2 INR (BEAKER) (test code = 370) 0.91 <=5.90 RECOMMENDED COUMADIN/WARFARIN INR THERAPY RANGESSTANDARD DOSE: 2.0 - 3.0 Includes: PROPHYLAXIS for venous thrombosis, systemic embolization; TREATMENT for venous thrombosis and/or pulmonary embolus.HIGH RISK: Target INR is 2.5-3.5 for patients with mechanical heart valves.CBC W/PLT COUNT & AUTO DIFFERENTIAL 2023-11-05 13:10:17* Test Item Value Reference Range Interpretation Comme nts WHITE BLOOD CELL COUNT (BEAK ER) (test code = 775) 4.7 K/ L 3.5-10.5 RED BLOOD CELL COUNT (BEAKER ) (test code = 761) 3.98 M/ L 3.93-5.22 HEMOGLOBIN (BEAKER) (test co de = 410) 12.4 GM/DL 11.2-15.7 HEMATOCRIT (BEAKER) (test co de = 411) 36.5 % 34.1-44.9 MEAN CORPUSCULAR VOLUME (SAMUEL KER) (test code = 753) 92 fL 79-95 MEAN CORPUSCULAR HEMOGLOBIN (BEAKER) (test code = 751) 31.2 pg 25.6-32.2 MEAN CORPUSCULAR HEMOGLOBIN CONC (BEAKER) (test code = 752) 34.0 GM/DL 32.2-35.5 RED CELL DISTRIBUTION WIDTH (BEAKER) (test code = 412) 13.0 % 11.7-14.4 PLATELET COUNT (BEAKER) (ted t code = 756) 253 K/CU MM 150-450 MEAN PLATELET VOLUME (BEAKER ) (test code = 754) 9.4 fL 9.4-12.3 NUCLEATED RED BLOOD CELLS (BEAKER) (test code = 413) 0 /100 WBC 0-0 NEUTROPHILS RELATIVE PERCENT (BEAKER) (test code = 429) 61 % LYMPHOCYTES RELATIVE PERCENT (BEAKER) (test code = 430) 29 % MONOCYTES RELATIVE PERCENT (BEAKER) (test code = 431) 8 % EOSINOPHILS RELATIVE PERCENT (BEAKER) (test code = 432) 1 % BASOPHILS RELATIVE PERCENT (BEAKER) (test code = 437) 1 % NEUTROPHILS ABSOLUTE COUNT (BEAKER) (test code = 670) 2.86 K/ L 1.56-6.13 LYMPHOCYTES ABSOLUTE COUNT (BEAKER) (test code = 414) 1.38 K/ L 1.18-3.74 MONOCYTES ABSOLUTE COUNT (BE GONZALEZ) (test code = 415) 0.36 K/ L 0.24-0.36 EOSINOPHILS ABSOLUTE COUNT (BEAKER) (test code = 416) 0.04 K/ L 0.04-0.36 BASOPHILS ABSOLUTE COUNT (BE GONZALEZ) (test code = 417) 0.03 K/ L 0.01-0.08 IMMATURE GRANULOCYTES-RELATI VE PERCENT (BEAKER) (test code = 2801) 0.40 % 0.00-1.00 CT ABDOMEN/PELVIS WITH & WITHOUT IV [id number] 15:59:37 [facility] : 1970 Sex: FEXAM: CT Chest, Abdomen and Pelvis WITHOUT and WITH intravenous contrast INDICATION: Preoperative; surgical planning for robotic CABGCOMPARISON: None.TECHNIQUE: The chest, abdomen and pelvis were scanned utilizing amultidetector helical scanner from the thoracic inlet to the pubicsymphysis following administration of IV contrast. Coronal and sagittalreformations were obtained. Scan was performed during portal venousphase. Dose modulation, iterative reconstruction, and/or weightbasedadjustment of the mA/kV was utilized to reduce the radiation dose to aslow as reasonably achievable. IV CONTRAST: 100cc Isovue 370ORAL CONTRAST: WaterFINDINGS:LINES/ TUBES: Right common femoral artery sheath in place with tip inthe right external iliac artery.LUNGS AND AIRWAYS: Patent central airways. No focal airspaceconsolidation. No suspicious pulmonary nodule. PLEURA: The pleural spaces are clear.HEART AND MEDIASTINUM: Patent normal caliber thoracic aorta withconventional 3 vessel aortic arch. Widely patent proximal great vessels.No aortic aneurysm or dissection. Mild scattered aortic and coronaryartery calcifications. Status post stenting of the proximal LAD. Patentnormal caliber r ight and left internal mammary arteries.The most anterior portion of the ascending aorta lies approximately 2.1cm deep to the posterior border of the sternum (post-contrast sagittalimage 79). The most anterior portion of the right ventricular wall liesapproximately 1.0 cm deep to the posterior border of the lower sternalbody (sagittal post-contrast image 77).Normal thyroid. No thoracic lymphadenopathy. Normal heart size. Nopericardial effusion. Normal caliber pulmonary arteries without central pulmonary embolism.HEPATOBILIARY: Hepatic steatosis. No focal liver lesions. No biliaryductal dilation. Patent portal veins. Status post cholecystectomy.SPLEEN: Unremarkable.PANCREAS: No focal masses or ductal dilation.ADRENALS: No adrenal nodules.KIDNEYS/URETERS: No hydronephrosis, stones, or suspicious solid orcystic lesions.PELVIC ORGANS/BLADDER: Retroverted uterus. Otherwise unremarkable. PERITONEUM / RETROPERITONEUM: No free air or fluid.LYMPH NODES: No lymphadenopathy.VESSELS: Moderate atherosclerotic calcifications of the non-aneurysmalabdominal aorta and major branches without hemodynamically significantluminal narrowing. Mild fat stranding around the patent proximalinferior mesenteric artery, likely infectious or inflammatory.GI TRACT: Mild diverticulosis without CT evidence of diverticulitis. Nobowel obstruction or focal wall thickening. Status post appendectomy.BONES AND SOFT TISSUES: Status post L5-S1 posterior fusion. No acuteosseous injury. No suspicious lytic or blastic lesions. Unremarkablesoft tissues.IMPRESSION:Conventional thoracic aortic anatomy with reference elly urements asabove.Status post proximal LAD stenting. Mild scattered calcifications of thethoracic aorta and coronary arteries. Diffuse hepatic steatosis.Electronically Signed By: Brianna Perry11/02/2023 16:01 CDTWorkstation Name: [id number] CHEST WITH & WITHOUT IV [id number] 15:59:37 [facility] : 1970 Sex: FEXAM: CT Chest, Abdomen and Pelvis WITHOUT and WITH intravenous contrast INDICATION: Preoperative; surgical planning for robotic CABGCOMPARISON: None.TECHNIQUE: The chest, abdomen and pelvis were scanned utilizing amultidetector helical scanner from the thoracic inlet to the pubicsymphysis following administration of IV contrast. Coronal and sagittalreformations were obtained. Scan was performed during portal venousphase. Dose modulation, iterative reconstruction, and/or weightbasedadjustment of the mA/kV was utilized to reduce the radiation dose to aslow as reasonably achievable. IV CONTRAST: 100cc Isovue 370ORAL CONTRAST: WaterFINDINGS:LINES/ TUBES: Right common femoral artery sheath in place with tip inthe right external iliac artery.LUNGS AND AIRWAYS: Patent central airways. No focal airspaceconsolidation. No suspicious pulmonary nodule. PLEURA: The pleural spaces are clear.HEART AND MEDIASTINUM: Patent normal caliber thoracic aorta withconventional 3 vessel aortic arch. Widely patent proximal great vessels.No aortic aneurysm or dissection. Mild scattered aortic and coronaryartery calcifications. Status post stenting of the proximal LAD. Patentnormal caliber r ight and left internal mammary arteries.The most anterior portion of the ascending aorta lies approximately 2.1cm deep to the posterior border of the sternum (post-contrast sagittalimage 79). The most anterior portion of the right ventricular wall liesapproximately 1.0 cm deep to the posterior border of the lower sternalbody (sagittal post-contrast image 77).Normal thyroid. No thoracic lymphadenopathy. Normal heart size. Nopericardial effusion. Normal caliber pulmonary arteries without central pulmonary embolism.HEPATOBILIARY: Hepatic steatosis. No focal liver lesions. No biliaryductal dilation. Patent portal veins. Status post cholecystectomy.SPLEEN: Unremarkable.PANCREAS: No focal masses or ductal dilation.ADRENALS: No adrenal nodules.KIDNEYS/URETERS: No hydronephrosis, stones, or suspicious solid orcystic lesions.PELVIC ORGANS/BLADDER: Retroverted uterus. Otherwise unremarkable. PERITONEUM / RETROPERITONEUM: No free air or fluid.LYMPH NODES: No lymphadenopathy.VESSELS: Moderate atherosclerotic calcifications of the non-aneurysmalabdominal aorta and major branches without hemodynamically significantluminal narrowing. Mild fat stranding around the patent proximalinferior mesenteric artery, likely infectious or inflammatory.GI TRACT: Mild diverticulosis without CT evidence of diverticulitis. Nobowel obstruction or focal wall thickening. Status post appendectomy.BONES AND SOFT TISSUES: Status post L5-S1 posterior fusion. No acuteosseous injury. No suspicious lytic or blastic lesions. Unremarkablesoft tissues.IMPRESSION:Conventional thoracic aortic anatomy with reference elly urements asabove.Status post proximal LAD stenting. Mild scattered calcifications of thethoracic aorta and coronary arteries. Diffuse hepatic steatosis.Electronically Signed By: Brianna Perry11/02/2023 16:01 CDTWorkstation Name: [id number] 09:26:15* Test Item Value Reference Range Interpretation Comme nts POC-GLUCOSE METER (MAGDALENE) (test code = 1538) 390 mg/dL 70-110 H : TESTED AT [facility] [address] [facility], [address]: Iron Miner/Propagator ID = [id number] for ANNE LOPEZ HEMOGLOBIN [id number] 09:10:31* Test Item Value Reference Range Interpretation Comme nts HEMOGLOBIN A1C ELECTROPHORESIS (BEAKER) (test code = 3811) 9.1 % See_Comment H [Automated me ssage] The system which generated this result transmitted reference range: <=5.6%. The reference range was not used to interpret this result as normal/abnormal. "The A1c is measured using a [facility]-certified method. HbA1c value equal to or greater than 6.5% as the diagnosis cutoff for diabetes. An HbA1c value of 5.7- 6.4% indicates increased risk for diabetes (prediabetes)."Iron Miner ID - ADMBASIC METABOLIC [id number] 06:11:40* Test Item Value Reference Range Interpretation Comme nts SODIUM (BEAKER) (test code = 381) 135 meq/L 136-145 L POTASSIUM (BEAKER) (test code = 379) 4.3 meq/L 3.4-5.1 Specimen slightl y hemolyzed CHLORIDE (BEAKER) (test code = 382) 100 meq/L 98-107 CO2 (BEAKER) (test code = 355) 26 meq/L 22-29 BLOOD UREA NITROGEN (BEAKER) (test code = 354) 13 mg/dL 10-20 CREATININE (BEAKER) (test code = 358) 0.85 mg/dL 0.57-1.11 Specimen slightl y hemolyzed GLUCOSE RANDOM (BEAKER) (test code = 652) 267 mg/dL 70-105 H CALCIUM (BEAKER) (test code = 697) 9.2 mg/dL 8.4-10.2 EGFR (BEAKER) (test code = 1092) 82 mL/min/1.73 sq m Interpretation of eG FR values Stage Description Result G1 Normal or high >=90 G2 Mildly decreased 60-89 G3a Mildly to moderately 45-59 G3b Moderately to severely 30-44 G4 Severly decreased 15-29 G5 Kidney failure <15Reported eGFR is based on the CKD-EPI 2020 equation that does not use a race coefficientEstimated GFR is not as accurate as Creatinine Clearance in predicting glomerular filtration rate. Estimated GFR is not applicable for dialysis patients CBC (HEMOGRAM ONLY)2023-10-23 05:52:14* Test Item Value Reference Range Interpretation Comme nts WHITE BLOOD CELL COUNT (BEAK ER) (test code = 775) 4.1 K/ L 3.5-10.5 RED BLOOD CELL COUNT (BEAKER ) (test code = 761) 4.44 M/ L 3.93-5.22 HEMOGLOBIN (BEAKER) (test co de = 410) 13.7 GM/DL 11.2-15.7 HEMATOCRIT (BEAKER) (test co de = 411) 40.6 % 34.1-44.9 MEAN CORPUSCULAR VOLUME (SAMUEL KER) (test code = 753) 91 fL 79-95 MEAN CORPUSCULAR HEMOGLOBIN (BEAKER) (test code = 751) 30.9 pg 25.6-32.2 MEAN CORPUSCULAR HEMOGLOBIN CONC (BEAKER) (test code = 752) 33.7 GM/DL 32.2-35.5 RED CELL DISTRIBUTION WIDTH (BEAKER) (test code = 412) 12.6 % 11.7-14.4 PLATELET COUNT (BEAKER) (ted t code = 756) 216 K/CU MM 150-450 MEAN PLATELET VOLUME (BEAKER ) (test code = 754) 9.3 fL 9.4-12.3 L NUCLEATED RED BLOOD CELLS (BEAKER) (test code = 413) 0 /100 WBC 0-0 POCT-GLUCOSE [id number] 21:32:49* Test Item Value Reference Range Interpretation Comme nts POC-GLUCOSE METER (BEAKER) (test code = 1538) 285 mg/dL 70-110 H : TESTED AT [facility] [address] [facility], [address]: Iron Miner/Propagator ID = [id number] for FIDELIA BECERRIL [id number] 14:45:45* Test Item Value Reference Range Interpretation Comme nts ACTIVATED CLOTTING TIME (BEAKER) (test code = 441) 134 sec : 74-137 seconds , Baseline: TESTED AT [facility] [address] [facility], [address]: Iron Miner/Propagator ID = [id number] for HOLLY WINKLER [id number] 12:51:44* Test Item Value Reference Range Interpretation Comme nts ACTIVATED CLOTTING TIME (BEAKER) (test code = 441) 171 sec : 74-137 seconds , Baseline: TESTED AT [facility] [address] [facility], [address]: Iron Miner/Propagator ID = [id number] for HOLLY WINKLER [id number] 10:08:17* Test Item Value Reference Range Interpretation Comme nts ACTIVATED CLOTTING TIME (BEAKER) (test code = 441) 256 sec : 74-137 seconds , Baseline: TESTED AT [facility] [address] [facility], [address]: Iron Miner/Propagator ID = [id number] for Jd Dennis [id number] 09:51:42* Test Item Value Reference Range Interpretation Comme nts ACTIVATED CLOTTING TIME (BEAKER) (test code = 441) 220 sec : 74-137 seconds , Baseline: TESTED AT [facility] [address] [facility], [address]: Iron Miner/Propagator ID = [id number] for Jd Dennis COMPREHENSIVE METABOLIC [id number] 07:10:46* Test Item Value Reference Range Interpretation Comme nts TOTAL PROTEIN (BEAKER) (test code = 770) 6.9 gm/dL 6.4-8.3 ALBUMIN (BEAKER) (test code = 1145) 4.0 g/dL 3.5-5.0 ALKALINE PHOSPHATASE (BEAKER) (test code = 346) 71 U/L 40-150 BILIRUBIN TOTAL (BEAKER) (test code = 377) 0.5 mg/dL 0.2-1.2 SODIUM (BEAKER) (test code = 381) 138 meq/L 136-145 POTASSIUM (BEAKER) (test code = 379) 4.1 meq/L 3.4-5.1 CHLORIDE (BEAKER) (test code = 382) 102 meq/L 98-107 CO2 (BEAKER) (test code = 355) 26 meq/L 22-29 BLOOD UREA NITROGEN (BEAKER) (test code = 354) 15 mg/dL 10-20 CREATININE (BEAKER) (test code = 358) 0.97 mg/dL 0.57-1.11 GLUCOSE RANDOM (BEAKER) (test code = 652) 265 mg/dL 70-105 H CALCIUM (BEAKER) (test code = 697) 9.5 mg/dL 8.4-10.2 AST (SGOT) (BEAKER) (test code = 353) 28 U/L 5-34 ALT (SGPT) (BEAKER) (test code = 347) 50 U/L <55 EGFR (BEAKER) (test code = 1092) 70 mL/min/1.73 sq m Interpretation of eG FR values Stage Description Result G1 Normal or high >=90 G2 Mildly decreased 60-89 G3a Mildly to moderately 45-59 G3b Moderately to severely 30-44 G4 Severly decreased 15-29 G5 Kidney failure <15Reported eGFR is based on the CKD-EPI 2020 equation that does not use a race coefficientEstimated GFR is not as accurate as Creatinine Clearance in predicting glomerular filtration rate. Estimated GFR is not applicable for dialysis patients [id number] 07:05:09* Test Item Value Reference Range Interpretation Comme nts PROTIME (BEAKER) (test code = 759) 12.4 seconds 11.9-14.2 INR (BEAKER) (test code = 370) 0.90 <=5.90 PARTIAL THROMBOPLASTIN TIME (BEAKER) (test code = 760) 24.3 seconds 22.5-36.0 RECOMMENDED COUMADIN/WARFARIN INR THERAPY RANGESSTANDARD DOSE: 2.0 - 3.0 Includes: PROPHYLAXIS for venous thrombosis, systemic embolization; TREATMENT for venous thrombosis and/or pulmonary embolus.HIGH RISK: Target INR is 2.5-3.5 for patients with mechanical heart valves.PROTHROMBIN [id number] 07:04:03* Test Item Value Reference Range Interpretation Comme nts PROTIME (BEAKER) (test code = 759) 12.4 seconds 11.9-14.2 INR (BEAKER) (test code = 370) 0.90 <=5.90 RECOMMENDED COUMADIN/WARFARIN INR THERAPY RANGESSTANDARD DOSE: 2.0 - 3.0 Includes: PROPHYLAXIS for venous thrombosis, systemic embolization; TREATMENT for venous thrombosis and/or pulmonary embolus.HIGH RISK: Target INR is 2.5-3.5 for patients with mechanical heart valves.CBC (HEMOGRAM ONLY)2023-10-22 06:55:23 * Test Item Value Reference Range Interpretation Comme nts WHITE BLOOD CELL COUNT (BEAK ER) (test code = 775) 4.3 K/ L 3.5-10.5 RED BLOOD CELL COUNT (BEAKER ) (test code = 761) 4.63 M/ L 3.93-5.22 HEMOGLOBIN (BEAKER) (test co de = 410) 14.0 GM/DL 11.2-15.7 HEMATOCRIT (BEAKER) (test co de = 411) 42.1 % 34.1-44.9 MEAN CORPUSCULAR VOLUME (SAMUEL KER) (test code = 753) 91 fL 79-95 MEAN CORPUSCULAR HEMOGLOBIN (BEAKER) (test code = 751) 30.2 pg 25.6-32.2 MEAN CORPUSCULAR HEMOGLOBIN CONC (BEAKER) (test code = 752) 33.3 GM/DL 32.2-35.5 RED CELL DISTRIBUTION WIDTH (BEAKER) (test code = 412) 12.8 % 11.7-14.4 PLATELET COUNT (BEAKER) (ted t code = 756) 244 K/CU MM 150-450 MEAN PLATELET VOLUME (BEAKER ) (test code = 754) 9.2 fL 9.4-12.3 L NUCLEATED RED BLOOD CELLS (BEAKER) (test code = 413) 0 /100 WBC 0-0 TISSUE [id number] 20:05:00Surgical Pathology Report Case: [id number] Authorizing Provider: Antonio Ellis MD Collected: 06/17/2020 10:10 AM Ordering Location: [facility] Received: 06/17/2020 12:05 PM SERVICES Pathologist: Charmaine Montano MD Specimen: Large Intestine, Colon - Left/Descending, Descending colon, stitch serna distal. COLON POLYP, DESCENDING COLON, PARTIAL COLECTOMY: - TUBULAR ADENOMA - TUMOR SIZE: 1.4 x 1.1 CM - NEGATIVE FOR HIGH GRADE DYSPLASIA OR INVASIVE CARCINOMA - SURGICAL RESECTION MARGIN FREE OF DYSPLASIA - TWENTY- THREE BENIGN LYMPH NODES (0/23) Signing Pathologist Direct Phone Line: [phone] signed by Charmaine Montano MD on 06/21/2020 at 8:05 [id number] of sigmoid colon, unspecified type Descending colonReceived fresh labeled the patient's name, accession number and "descendingcolon" is a 14.5 cm in length by 3.5 cm in diameter: That has a suture at 1 end, which is designated as distal by the surgeon, and up to 11.0 cm of attached pericolic fat. The serosa is mehta-pink, hyperemic and displays surgical tattoo ink that is 7.5 cm from the proximal margin, and is abutting thedistal margin. The specimen is opened to reveal a 1.4 x 1.1 cm flattened area that is 11.3 cm from the proximal margin and 6.5 cm from the distal margin. Sectioning reveals that the flattened area isgrossly confined to the mucosa, and is 11.0 cm from the mesenteric margin. The remaining uninvolvedmucosa is mehta-pink and displays normal folds. The wall measures 0.2 cm thick. Needle Molder sections are submitted as follows:Ink codeProximal margin: BlueDistal margin: BlackSection codeA1-proximal and distal colon margins en faceA2-mesenteric margin en grjjJ2-J3-xoutzt flattened areaA6-1 lymph node, bisectedA7-1 lymph node, bisectedA8-1 lymph node, bisectedA9-1 lymph node, bisectedA 10-lymph node, bisectedA 11-1 lymph node, bisectedA 12-1 lymph node, bisectedA 13-1 lymph node, bisectedA 14-2lymph nodesA 15-A 17-multiple lymph nodesJASPLA Call HT (ASCP)PerformedKaiser [facility], Department of Pathology, [address] [place] [id number], [facility], [facility] of [facility], [address] [place] [id number], [facility], Department of [facility]ology, [address] [place] [address], AIKV-GLUCOSE [id number] 11:12:00* Test Item Value Reference Range Interpretation Comme nts POC-GLUCOSE METER (BEAKER) (test code = 1538) 140 mg/dL 70-110 H : TESTED AT [address], [address]: Iron Miner/Propagator ID = [id number] for GUILLERMO PAPITO POCT-GLUCOSE [id number] 09:17:00* Test Item Value Reference Range Interpretation Comme nts POC-GLUCOSE METER (BEAKER) (test code = 1538) 114 mg/dL 70-110 H : TESTED AT [address], [address]: Iron Miner/Propagator ID = [id number] for PAPITO LI BASIC METABOLIC [id number] 07:08:00* Test Item Value Reference Range Interpretation Comme nts SODIUM (BEAKER) (test code = 381) 140 meq/L 136-145 POTASSIUM (BEAKER) (test code = 379) 3.8 meq/L 3.5-5.1 CHLORIDE (BEAKER) (test code = 382) 108 meq/L 98-107 H CO2 (BEAKER) (test code = 355) 23 meq/L 22-29 BLOOD UREA NITROGEN (BEAKER) (test code = 354) 8 mg/dL 7-21 CREATININE (BEAKER) (test code = 358) 0.69 mg/dL 0.57-1.25 GLUCOSE RANDOM (BEAKER) (test code = 652) 66 mg/dL 70-105 L CALCIUM (BEAKER) (test code = 697) 8.5 mg/dL 8.4-10.2 EGFR (BEAKER) (test code = 1092) 90 mL/min/1.73 sq m ESTIMATED GFR IS NOT ACCURATE CREATININE CLEARANCE IN PREDICTING GLOMERULAR FILTRATION RATE. ESTIMATED GFR IS NOT APPLICABLE FOR DIALYSIS PATIENTS. Iron Miner ID - HARINI [facility] W/PLT COUNT & AUTO [id number] 06:42:00* Test Item Value Reference Range Interpretation Comme nts WHITE BLOOD CELL COUNT (BEAK ER) (test code = 775) 6.8 K/ L 3.5-10.5 RED BLOOD CELL COUNT (BEAKER ) (test code = 761) 4.25 M/ L 3.93-5.22 HEMOGLOBIN (BEAKER) (test co de = 410) 12.8 GM/DL 11.2-15.7 HEMATOCRIT (BEAKER) (test co de = 411) 38.1 % 34.1-44.9 MEAN CORPUSCULAR VOLUME (SAMUEL KER) (test code = 753) 89.6 fL 79.4-94.8 MEAN CORPUSCULAR HEMOGLOBIN (BEAKER) (test code = 751) 30.1 pg 25.6-32.2 MEAN CORPUSCULAR HEMOGLOBIN CONC (BEAKER) (test code = 752) 33.6 GM/DL 32.2-35.5 RED CELL DISTRIBUTION WIDTH (BEAKER) (test code = 412) 12.3 % 11.7-14.4 PLATELET COUNT (BEAKER) (ted t code = 756) 198 K/CU MM 150-450 MEAN PLATELET VOLUME (BEAKER ) (test code = 754) 8.9 fL 9.4-12.3 L NUCLEATED RED BLOOD CELLS (BEAKER) (test code = 413) 0 /100 WBC 0-0 NEUTROPHILS RELATIVE PERCENT (BEAKER) (test code = 429) 66 % LYMPHOCYTES RELATIVE PERCENT (BEAKER) (test code = 430) 25 % MONOCYTES RELATIVE PERCENT (BEAKER) (test code = 431) 7 % EOSINOPHILS RELATIVE PERCENT (BEAKER) (test code = 432) 1 % BASOPHILS RELATIVE PERCENT (BEAKER) (test code = 437) 0 % NEUTROPHILS ABSOLUTE COUNT (BEAKER) (test code = 670) 4.42 K/ L 1.56-6.13 LYMPHOCYTES ABSOLUTE COUNT (BEAKER) (test code = 414) 1.72 K/ L 1.18-3.74 MONOCYTES ABSOLUTE COUNT (BE GONZALEZ) (test code = 415) 0.49 K/ L 0.24-0.36 H EOSINOPHILS ABSOLUTE COUNT (BEAKER) (test code = 416) 0.09 K/ L 0.04-0.36 BASOPHILS ABSOLUTE COUNT (BE GONZALEZ) (test code = 417) 0.02 K/ L 0.01-0.08 IMMATURE GRANULOCYTES-RELATI VE PERCENT (BEAKER) (test code = 2801) 0 % 0-1 POCT-GLUCOSE [id number] 21:13:00* Test Item Value Reference Range Interpretation Comme nts POC-GLUCOSE METER (BEAKER) (test code = 1538) 177 mg/dL 70-110 H : TESTED AT [facility] [address] [facility], [address]: Iron Miner/Propagator ID = [id number] for ELYSIAXAVIEREVERARDO POCT-GLUCOSE [id number] 18:37:00* Test Item Value Reference Range Interpretation Comme nts POC-GLUCOSE METER (BEAKER) (test code = 1538) 151 mg/dL 70-110 H : TESTED AT [facility] [address] [facility], [address]: Iron Miner/Propagator ID = [id number] for Kathy Coronado POCT-GLUCOSE [id number] 14:35:00* Test Item Value Reference Range Interpretation Comme nts POC-GLUCOSE METER (BEAKER) (test code = 1538) 225 mg/dL 70-110 H : TESTED AT [facility] [address] [facility], [address]: Iron Miner/Propagator ID = [id number] for DOROTHEA DELVALLE PROTHROMBIN TIME/[id number] 08:24:00* Test Item Value Reference Range Interpretation Comme nts PROTIME (BEAKER) (test code = 759) 14.0 seconds 11.9-14.2 INR (BEAKER) (test code = 370) 1.11 See_Comment [Automated Amplify.LAa ge] The system which generated this result transmitted reference range: <=5.90. The reference range was not used to interpret this result as normal/abnormal. Effective 09/14/2018: PT Reference Range ChangeNew: 11.9-14.2 Previous: 11.7- 14.7RECOMMENDED COUMADIN/WARFARIN INR THERAPY RANGESSTANDARD DOSE: 2.0-3.0 Includes: PROPHYLAXIS for venous thrombosis, systemic embolization; TREATMENT for venous thrombosis and/or pulmonary embolus.HIGH RISK: Target INR is 2.5-3.5 for patients wiht mechanical heart valves.[id number] 08:24:00* Test Item Value Reference Range Interpretation Comme nts PARTIAL THROMBOPLASTIN TIME (BEAKER) (test code = 760) 25.6 seconds 22.5-36.0 POCT-GLUCOSE [id number] 07:18:00* Test Item Value Reference Range Interpretation Comme nts POC-GLUCOSE METER (BEAKER) (test code = 1538) 160 mg/dL 70-110 H : TESTED AT [place] [id number] [facility], [address]: Iron Miner/Propagator ID = [id number] for EDUARDA ARDON MRI Knee Left Wo ContMRI Knee Left Wo Cont Notes Date/Time Note Provider Source 2023-12-07 20:47:40 OPERATIVE/PROCEDURE REPORT BRENNAN ROMAN FACILITY: [facility] Billing #: [id number] Room: [address] [place] [address] MR #: [id number] : 1970 DATE OF PROCEDURE: 11/17/2023 SURGEON: Min Bennett MD PREOPERATIVE DIAGNOSES: 1. Single-vessel coronary artery disease to the left anterior descending artery with in-stent stenosis and progression of left coronary artery disease. 2. History of coronary artery disease status post percutaneous coronary intervention to left anterior descending artery, now developed in-stent stenosis. 3. History of Kxm-PT-ugwtedhve myocardial infarction. 4. Type 2 diabetes. 5. Hypertension. 6. Hyperlipidemia. 7. Former smoker. 8. Unstable angina. POSTOPERATIVE DIAGNOSES: 1. Single-vessel coronary artery disease to the left anterior descending artery with in-stent stenosis and progression of left coronary artery disease. 2. History of coronary artery disease status post percutaneous coronary intervention to left anterior descending artery, now developed in-stent stenosis. 3. History of Hvj-OO-ketbyalhz myocardial infarction. 4. Type 2 diabetes. 5. Hypertension. 6. Hyperlipidemia. 7. Former smoker. 8. Unstable angina. SURGICAL PROCEDURES PERFORMED: 1. Robotic-assisted coronary artery bypass grafting x1 with left internal mammary artery to left anterior descending artery. 2. Robotic-assisted harvesting of the left internal mammary artery at the in situ pedicle graft. 3. Left minithoracotomy for direct off pump beating heart anastomosis between the left internal mammary artery and the left anterior descending artery. 4. Placement of the left femoral artery and left femoral vein vascular sheath as the backup access under the guidance of ultrasound. INTRAOPERATIVE FINDING: Good MENDOZA conduit and good LAD target and good Doppler flow from the graft. ESTIMATED BLOOD LOSS: 50 mL. No blood transfusion. INDICATIONS FOR SURGERY: The patient is a 53-year-old female who had multiple cardiac risk factors. She had a prior PCI to the LAD. Now, the patient developed in-stent stenosis and also progression of paimiut coronary artery disease. The patient has unstable angina. The patient had repeat angiogram that showed progression of paimiut coronary artery disease and in-stent stenosis in the LAD. Based on this finding, we recommend a robotic-assisted coronary artery bypass grafting with MENDOZA to LAD. The benefits and risks of surgery were discussed with the patient and the consent was obtained. DESCRIPTION OF PROCEDURE: We brought the patient to the operating room. She was intubated. General anesthesia was given. Her chest, abdomen, and bilateral lower extremities were prepped and draped in sterile fashion. We deflated the left lung. We placed a vascular sheath into the left femoral artery and left femoral vein under the guidance of ultrasound, which used for the vascular access. We then inserted a robotic trocars into the left chest. We inserted robotic instruments into the left pleural space. We identified the left internal mammary artery. We used electrocautery kit to carefully dissect the left internal mammary artery from the proximal region all the way down to the distal bifurcation. We also introduced a CO2 catheter to use CO2 pressure to dissect the fascia layer of the MENDOZA graft and then with that dissection, we were able to facilitate the MENDOZA dissection more efficiently. We clipped intercostal branches and then divided them. We gave heparin. We divided the distal end of the MENDOZA graft. We then opened the pericardium longitudinally. We identified the mid distal target of the LAD. We found the corresponding intercostal space, which was the 5th intercostal space. We then at this time removed the robotic instruments. We made a 2-inch incision in the left submammary line. We inserted a small retractor into the left chest. We prepared the distal end of the MENDOZA graft, which has good blood flow. We then applied a myocardial stabilizer over the targeted LAD. We placed a pair of elastic tapes to temporary occlude the LAD. We then made a 6 mm anterior wall arteriotomy. We inserted a 1.5 mm shunt into the LAD arteriotomy. We brought down the distal end of the MENDOZA graft for an end-to-side anastomosis. A 7-0 Prolene suture was used for the continuous running anastomosis between the MENDOZA and the LAD. The anastomosis was satisfactory. We tied the suture after the each intracoronary shunt was removed. We then brought in the hand-held Doppler to measure the flow from the MENDOZA to the LAD and flow signal was excellent. We then inserted a 32-Dominican chest tube in the left pleural space. We closed the intercostal space in multiple layers. The vascular sheaths were removed from the groin vessels. The patient tolerated the procedure well and was transferred to the recovery room. ANNAMARIA/AKILAH /[id number] Electronically signed by: MIN BENNETT at 2023-12-07 19:56:49.000 MIN BENNETT [facility]
[2024-06-07] MEDS ORDERED: HYDROMORPHONE HCL 0.5 MG/0.5 ML INJ ONE ×2 (10:57→12:36)
[2024-06-07 11:00] LABS: Absolute Lymphocytes (CBC) 1.2 K/uL (0.7-4.9); Absolute Monocytes 0.3 K/uL (0.1-1.3); Absolute Neutrophil 1.6 K/uL (1.8-8.0); Basophils % 0.9 % (0-1.3); Eosinophils % 1.2 % (0-4.4); Hematocrit 44.3 % (36.0-45.0); Hemoglobin 14.7 g/dL (12.0-15.0); Lymphocytes % 37.9 % (15.3-44.8); MCH 28.2 pg (27.0-35.0); MCHC 33.3 g/dL (32.0-36.0); MCV 84.8 fL (80-100); MPV 6.9 fL (7.6-11.3); Monocytes % 9.6 % (3.3-12.3); Neutrophils % 50.4 % (41.7-73.7); Nucleated Red Blood Cells % 0.2 % (0-0); Platelets 303 thou/uL (152-406); RBC Red Blood Cell Count 5.22 M/uL (3.86-4.86); Red Cell Distribution Width 14.8 % (12.1-15.2)
[2024-06-07 11:04] LABS: Specific Gravity 1.014 (1.005-1.030); Urine Bilirubin NEGATIVE (Negative); Urine Blood Negative (Negative); Urine Clarity Clear (Clear); Urine Color Colorless (Yellow); Urine Glucose 3+ (Negative); Urine Ketones NEGATIVE (Negative); Urine Microscopic Reflex YN NO UMIC; Urine Nitrite NEGATIVE (Negative); Urine Protein NEGATIVE (Negative); Urine Urobilinogen Normal (Normal); Urine pH 6.5 (5.0-7.0)
[2024-06-07 11:18] LABS: Albumin 3.8 g/dL (3.4-5.0); Albumin/Globulin Ratio 1.1 (1.1-1.8); Anion Gap 10.3 mEq/L (5.0-15.0); Bilirubin Total 0.4 mg/dL (0.2-1.0); Globulin 3.4 g/dL (2.3-3.5); Potassium 4.3 mEq/L (3.5-5.1); Protein, Total 7.2 g/dL (6.4-8.2)
--- NOTE | 2024-06-07 12:04 | RAD REPORT ---
EXAMINATION: CT ABDOMEN AND PELVIS WITHOUT CONTRAST CLINICAL INDICATION: Female, 54 years old.left flank pain TECHNIQUE: CT abdomen and pelvis was performed, without IV contrast, as per department protocol. Axia l, sagittal and coronal reconstructions were obtained. One or more of the following dose reduction techniques were used: Automated exposure control, adjustment of the mA and/or kV according to the pat ient size, and/or iterative reconstruction. Unless otherwise specified, incidental findings do not require dedicated imaging follow-up. [id number]. IV CONTRAST: Not administered. COMPARISON: 05/20/2022 FINDINGS: The lack of intravenous contrast limits the sensitivity of this exam for evaluation of solid visceral organs, vascular structures, and retroperitoneum. LOWER CHEST: No acute process identified.No significant pericardial effusion. UPPER GI: No significant abnormality. LIVER: Hepatic steatosis, but otherwise unremarkable. GALLBLADDER/BILE DUCTS: Cholecystectomy. Mild extra-hepatic biliary ductal dilatation is likely relat ed to the post-cholecystectomy state. Consider correlating with LFT's.? PANCREAS: No mass, ductal dilation, or mickey-pancreatic fluid. SPLEEN: Unremarkable. ADRENALS: No adrenal masses. KIDNEYS AND URETERS: No hydronephrosis.Within the limitations of a noncontrast CT, no suspicious delmer l lesions.No urinary tract calculi identified. ABDOMINAL AORTA AND OTHER VESSELS: Mild atherosclerotic changes. PERITONEUM: No abnormal free fluid. No free air. LYMPH NODES: No pathologic lymphadenopathy. ABDOMINAL WALL: Unremarkable SMALL BOWEL/COLON: Small bowel has normal course and caliber. No colonic wall thickening or pericolon ic inflammatory changes.Appendix absent. Mild diverticulosis without diverticulitis. Moderate colonic stool. URINARY BLADDER: Underdistended but grossly unremarkable. REPRODUCTIVE ORGANS: No pathologic process. MUSCULOSKELETAL: L5-S1 fusion. Rounded sclerotic lesion in L1 is unchanged. This may be a hemangioma. ADDITIONAL FINDINGS: None. IMPRESSION: No acute or significant abnormalities in the abdomen or pelvis, with evaluation limited by lack of IV contrast.
--- NOTE | 2024-06-07 12:10 | RAD REPORT ---
EXAM: Chest Single View HISTORY: left flank pain COMPARISON: None. FINDINGS: LUNGS/PLEURA: The lungs are clear. No pleural effusions or pneumothorax. No pulmonary edema. MEDIASTINUM: The mediastinal silhouette is within normal limits. CARDIAC: The cardiac silhouette is within normal limits. UPPER ABDOMEN: No significant abnormality. BONES: No acute abnormality. LINES/TUBES/OTHER: N/A IMPRESSION: No evidence of acute cardiopulmonary disease.
[2024-06-07] MEDS ORDERED: HYDROCODONE/APAP 5/325 MG TAB ONE (12:26)
--- NOTE | 2024-06-07 13:03 | EDPHYS ---
Physician Documentation [facility] Name: Emilia Roman Age: 54 yrs Sex: Female : 1970 Arrival Date: 06/07/2024 Time: 10:07 Bed 12 Private MD: ED Physician Daniel Chau HPI: 06/07 12:58 This 54 yrs old Female presents to ER via Ambulatory with complaints of side pain. rn 12:58 The patient presents with pain that is acute. rn 12:58 Onset: The symptoms/episode began/occurred 4 day(s) ago. The pain does not radiate. rn Associated signs and symptoms: Pertinent negatives: abdominal pain, chest pain, dysuria, fever, hematuria, incontinence, nausea, numbness, tingling, urinary retention. Modifying factors: The patient symptoms are alleviated by remaining still, the patient symptoms are aggravated by any movement. Severity of symptoms: At their worst the symptoms were moderate, in the emergency department the symptoms are unchanged. The patient has not experienced similar symptoms in the past. Patient reports 3 to 4 days of left sided flank/back pain underneath left scapula. Is undergoing physical therapy and lately has been on the Approva machine. Reports pain with movement. No direct trauma or fall. No cough or chest pain. No abdominal pain. No history of kidney stones. No urinary symptoms.. Historical: - Allergies: 10:15 No Known Allergies; ll1 - PMHx: 10:15 Diabetes; Tachycardia; Hyperlipidemia; Hypertension; chronic back pain; ll1 - PSHx: 10:15 colon surgery- 12 inches removed 2020; Appendectomy; rotator cuff surgery- 2019; ll1 Ligation of fallopian tube; Cholecystectomy; Coronary artery bypass graft; hernia repair; screws lower back; - Immunization history:: Adult Immunizations up to date. - Social history:: Smoking status: Patient denies any tobacco usage or history of. - Family history:: not pertinent. - Hospitalizations: : No recent hospitalization is reported. ROS: 12:58 Constitutional: Negative for fever, chills, and weight loss, Neck: Negative for injury, rn pain, and swelling, Cardiovascular: Negative for chest pain, palpitations, and edema, Respiratory: Negative for shortness of breath, cough, wheezing, and pleuritic chest pain, Abdomen/GI: Negative for abdominal pain, nausea, vomiting, diarrhea, and constipation, Back: Positive for left back pain : Negative for injury, bleeding, discharge, and swelling, MS/Extremity: Negative for injury and deformity, Neuro: Negative for headache, weakness, numbness, tingling, and seizure, Exam: 12:58 Constitutional: This is a well developed, well nourished patient who is awake, alert, rn and in no acute distress. Cardiovascular: Regular rate and rhythm. No pulse deficits. Respiratory: No increased work of breathing, no retractions or nasal flaring. Abdomen/GI: Soft, nontender, no peritoneal signs or distention Back: No spinal tenderness MS/ Extremity: Pulses equal, no cyanosis. Neuro: Awake and alert, GCS 15 Vital Signs: 10:16 BP 164 / 112; Pulse 80; Resp 17; Temp 97.6; Pulse Ox 100% ; Weight 79.38 kg; Height 5 ll1 ft. 9 in. ; Pain 8/10; 11:28 BP 147 / 80; Pulse 88; Resp 16; Pulse Ox 98% on R/A; iw 12:23 BP 136 / 68; Pulse 62; Resp 16; Pulse Ox 95% on R/A; jb4 10:16 Body Mass Index 25.84 (79.38 kg, 175.26 cm) ll1 10:16 Pain Scale: Adult ll1 MDM: 10:11 Medical Screening Exam initiated rn 12:58 Differential diagnosis: arthritis, Osteoarthritis sprain, Ureterolithiasis. Data rn reviewed: vital signs, nurses notes, lab test result(s), radiologic studies, CT scan, and as a result, I will discharge patient. Counseling: I had a detailed discussion with the patient and/or guardian regarding the historical points, exam findings, and any diagnostic results supporting the discharge/admit diagnosis, lab results, radiology results, the need for outpatient follow up, to return to the emergency department if symptoms worsen or persist or if there are any questions or concerns that arise at home. Special discussion: I discussed with the patient/guardian in detail that at this point there is no indication for admission to the hospital. It is understood, however, that if the symptoms persist or worsen the patient needs to return immediately for re-evaluation. ED course: No acute findings and workup including CT imaging and chest x-ray. Chest x-ray images negative for pneumothorax or pneumonia per my interpretation. Will discharge home with return precautions. Likely musculoskeletal given recent initiation of rehabilitation exercises including elliptical machine.. 06/07 10:24 Order name: CBC with Diff; Complete Time: 11:23 rn 06/07 10:24 Order name: CMP; Complete Time: 11:23 rn 06/07 10:24 Order name: Lipase; Complete Time: 11:23 rn 06/07 10:24 Order name: Urinalysis w/ reflexes; Complete Time: 11:23 rn 06/07 10:24 Order name: CT Stone Protocol; Complete Time: 12:56 rn 06/07 10:24 Order name: XRAY Chest (1 view); Complete Time: 12:56 rn 06/07 10:24 Order name: IV Saline Lock; Complete Time: 10:51 rn 06/07 10:24 Order name: Labs collected and sent; Complete Time: 10:51 rn Administered Medications: 11:00 Drug: HYDROmorphone IVP 0.5 mg IVP once Route: IVP; Site: left antecubital; iw 12:05 Follow up: Response: No adverse reaction; Pain is unchanged, physician notified jb4 12:44 Drug: HYDROmorphone IVP 0.5 mg IVP once Route: IVP; Site: left antecubital; jb4 13:21 Follow up: Response: No adverse reaction; Marked relief of symptoms; Pain is decreased; jb4 RASS: Alert and Calm (0) Disposition Summary: 06/07/24 13:03 Discharge Ordered Notes: Location: Home rn Problem: new rn Symptoms: have improved rn Condition: Stable rn Diagnosis - Flank pain rn Followup: rn - With: Private Physician - When: As needed - Reason: Recheck today's complaints, Re-evaluation by your physician Discharge Instructions: - Discharge Summary Sheet rn - Flank Pain, Adult rn Forms: - Medication Reconciliation Form rn - Antibiotic pattern clerk - Prescription Opioid Use rn - Patient Portal Instructions rn - Leadership Thank You Letter rn Signatures: Dispatcher [employer] Karin Tamayo RN RN iw Daniel Chau MD MD rn Bryson, James, RN RN jb4 Kelly Lambert RN RN ll1
--- NOTE | 2024-06-07 13:03 | ER ---
Nurse's Notes [facility] [place] Name: Emilia Roman Age: 54 yrs Sex: Female : 1970 Arrival Date: 06/07/2024 Time: 10:07 Bed 12 Private MD: Diagnosis: Flank pain Presentation: 06/07 10:16 Chief complaint: Patient states: Pain to L back that wraps around to L trunk for 3-4 ll1 days. No fever or cough. No drysuria. Coronavirus screen: Client denies travel out of the [place] in the last 14 days. At this time, the client does not indicate any symptoms associated with coronavirus-19. Ebola Screen: Patient denies travel to an Ebola-affected area in the 21 days before illness onset. Initial Sepsis Screen: Does the patient meet any 2 criteria? No. Patient's initial sepsis screen is negative. Does the patient have a suspected source of infection? No. Patient's initial sepsis screen is negative. Risk Assessment: Do you want to hurt yourself or someone else? Patient reports no desire to harm self or others. Onset of symptoms was June 04, 2024. 10:16 Method Of Arrival: Ambulatory ll1 10:16 Acuity: KENDRA 3 ll1 Historical: - Allergies: 10:15 No Known Allergies; ll1 - PMHx: 10:15 Diabetes; Tachycardia; Hyperlipidemia; Hypertension; chronic back pain; ll1 - PSHx: 10:15 colon surgery- 12 inches removed 2020; Appendectomy; rotator cuff surgery- 2019; ll1 Ligation of fallopian tube; Cholecystectomy; Coronary artery bypass graft; hernia repair; screws lower back; - Immunization history:: Adult Immunizations up to date. - Social history:: Smoking status: Patient denies any tobacco usage or history of. - Family history:: not pertinent. - Hospitalizations: : No recent hospitalization is reported. Screenin:10 [facility] ED Fall Risk Assessment (Adult) History of falling in the last 3 months, iw including since admission No falls in past 3 months (0 pts) Confusion or Disorientation No (0 pts) Intoxicated or Sedated No (0 pts) Impaired Gait No (0 pts) Mobility Assist Device Used No (0 pt) Altered Elimination No (0 pt) Score/Fall Risk Level 0 - 2 = Low Risk Oriented to surroundings, Maintained a safe environment. Abuse screen: Denies threats or abuse. Nutritional screening: No deficits noted. Tuberculosis screening: No symptoms or risk factors identified. Assessment: 11:08 General: Appears uncomfortable, Behavior is calm, cooperative. Pain: Complains of pain iw in left low back and left mid back. Neuro: Level of Consciousness is awake, alert, obeys commands, Oriented to person, place, time, situation, Moves all extremities. Cardiovascular: Patient's skin is warm and dry. Respiratory: Respiratory effort is even, unlabored, Respiratory pattern is regular. GI: Reports. : Reports pain in left flank(s). Derm: Skin is intact, is healthy with good turgor. Musculoskeletal: Range of motion: intact in all extremities. 11:29 Reassessment: Patient appears in no apparent distress at this time. Patient and/or iw family updated on plan of care and expected duration. Pain level reassessed. Patient states symptoms have not improved. 12:22 Reassessment: Patient appears in no apparent distress at this time. Patient and/or jb4 family updated on plan of care and expected duration. Pain level reassessed. Patient is alert, oriented x 3, equal unlabored respirations, skin warm/dry/pink. Pt reports earlier pain medications are not helping with the pain to the left side. Reports pain is a 8/10. Provider notified. See MAR for orders. Vital Signs: 10:16 BP 164 / 112; Pulse 80; Resp 17; Temp 97.6; Pulse Ox 100% ; Weight 79.38 kg; Height 5 ll1 ft. 9 in. ; Pain 8/10; 11:28 BP 147 / 80; Pulse 88; Resp 16; Pulse Ox 98% on R/A; iw 12:23 BP 136 / 68; Pulse 62; Resp 16; Pulse Ox 95% on R/A; jb4 10:16 Body Mass Index 25.84 (79.38 kg, 175.26 cm) ll1 10:16 Pain Scale: Adult ll1 ED Course: 10:10 Patient arrived in ED. al6 10:11 Daniel Chau MD is Attending Physician. rn 10:17 Triage completed. ll1 10:17 Arm band placed on. ll1 10:51 CBC with Diff Sent. bc6 10:51 CMP Sent. bc6 10:51 Lipase Sent. bc6 10:51 Initial lab(s) drawn, by co, sent to lab. Inserted saline lock: 22 gauge in left bc6 antecubital area, using aseptic technique. Blood collected. Flushed with 10 mL NS. 11:00 Karin Santos, RN is Primary Nurse. iw 11:10 Patient has correct armband on for positive identification. iw 11:34 CT Stone Protocol In Process Unspecified. EDMS 12:02 XRAY Chest (1 view) In Process Unspecified. EDMS 13:22 Provided Education on: discharge instructions.. jb4 13:22 No provider procedures requiring assistance completed. IV discontinued, intact, jb4 bleeding controlled, No redness/swelling at site. Pressure dressing applied. Administered Medications: 11:00 Drug: HYDROmorphone IVP 0.5 mg IVP once Route: IVP; Site: left antecubital; iw 12:05 Follow up: Response: No adverse reaction; Pain is unchanged, physician notified jb4 12:44 Drug: HYDROmorphone IVP 0.5 mg IVP once Route: IVP; Site: left antecubital; jb4 13:21 Follow up: Response: No adverse reaction; Marked relief of symptoms; Pain is decreased; jb4 RASS: Alert and Calm (0) Medication: 11:10 VIS not applicable for this client. Outcome: 13:03 Discharge ordered by . rn 13:21 Discharged to home ambulatory, jb4 13:21 Condition: stable 13:21 Discharge instructions given to patient, family, Instructed on Demonstrated understanding of instructions, follow-up care, 13:22 Patient left the ED. jb4 Signatures: Dispatcher [employer] Karin Tamayo, RN MARCIO iw Daniel Chau MD MD rn Bryson, James, RN RN jb4 Kelly Lambert RN RN ll1 Beata Peterson 6 Elyse Haddad
[2024-06-07 16:23] VITALS: TEMP 97.6
[2024-06-07 16:26] VITALS: BP 136/68; O2SAT 95
== END 2024-06-07 13:22 | disposition home or self-care (01) ==
LOC: ER 10:07
DX: R10.9 Unspecified abdominal pain (principal); M54.9 Dorsalgia, unspecified
CPT/HCPCS: 85025; 36415; 81003; 83690; 80053; 76377; 74176; 71045; J1171 ×2

== ENCOUNTER 2024-06-25 07:26 | Emergency (ER) | payer BC ==
[2024-06-25] MEDS ORDERED: ONDANSETRON 4 MG/2 ML VIAL ONE (07:55)
[2024-06-25] MEDS ORDERED: MORPHINE 4 MG/ML SYR ONE (07:56)
[2024-06-25] MEDS ORDERED: KETOROLAC 30 MG/ML INJ ONE (07:56)
[2024-06-25] MEDS ORDERED: NA CHLORIDE 0.9% 1,000 ML ONE ×2 (07:56→09:40)
[2024-06-25 08:21] LABS: Urine Bilirubin NEGATIVE (Negative); Urine Blood Negative (Negative); Urine Clarity Clear (Clear); Urine Color Colorless (Yellow); Urine Glucose 4+ (Over) (Negative); Urine Ketones NEGATIVE (Negative); Urine Microscopic Reflex YN NO UMIC; Urine Nitrite NEGATIVE (Negative); Urine Protein NEGATIVE (Negative); Urine Urobilinogen Normal (Normal)
[2024-06-25 08:29] LABS: Absolute Eosinophils 0.1 K/uL (0-0.5); Absolute Monocytes 0.4 K/uL (0.1-1.3); Eosinophils % 1.4 % (0-4.4); Hematocrit 39.5 % (36.0-45.0); Hemoglobin 13.5 g/dL (12.0-15.0); MCH 29.1 pg (27.0-35.0); MCHC 34.2 g/dL (32.0-36.0); MCV 85.2 fL (80-100); Monocytes % 8.3 % (3.3-12.3); Neutrophils % 67.3 % (41.7-73.7); Nucleated Red Blood Cells % 0.4 % (0-0); Platelets 292 thou/uL (152-406); RBC Red Blood Cell Count 4.64 M/uL (3.86-4.86)
[2024-06-25 08:50] LABS: Albumin 3.1 g/dL (3.4-5.0); Albumin/Globulin Ratio 0.9 (1.1-1.8); Anion Gap 12.6 mEq/L (5.0-15.0); Bilirubin Total 0.4 mg/dL (0.2-1.0); Globulin 3.4 g/dL (2.3-3.5); Potassium 4.6 mEq/L (3.5-5.1); Protein, Total 6.5 g/dL (6.4-8.2)
[2024-06-25] MEDS ORDERED: INSULIN REGULAR (HUMAN) 100 UNIT/ML ONE (09:37)
[2024-06-25] MEDS ORDERED: INSULIN GLARGINE 100 UNIT/ML SQ ONE (09:37)
--- NOTE | 2024-06-25 09:49 | RAD REPORT ---
EXAMINATION: CTA CHEST PE CLINICAL INDICATION: Chest pain TECHNIQUE: 100 cc 370 Isovue administered intravenously. This examination was performed according to an angiographic protocol with 3D post-processing. This involves 3D reconstructions, MIPs, volume rendered images and/or shaded surface rendering. One or more of the following dose reduction techniqu es were used: Automated exposure control, adjustment of the mA and/or kV according to patient size, and/or iterative reconstruction. Unless otherwise specified, incidental findings do not require dedic ated imaging follow-up. [id number]. COMPARISON: No prior exam. FINDINGS: A pulmonary embolus is not seen. An aortic aneurysm not noted. No pleural effusion. Small pericardial effusion A few areas of subsegmental atelectasis IMPRESSION: No evidence of a pulmonary embolism
--- NOTE | 2024-06-25 09:57 | RAD REPORT ---
EXAMINATION: CT ABDOMEN AND PELVIS WITH CONTRAST CLINICAL INDICATION: Abdominal pain TECHNIQUE: CT abdomen and pelvis was performed, after the administration of 100 cc Isovue-300.. Sagit emla and coronal reconstructions were obtained. One or more of the following dose reduction techniques were used: Automated exposure control, adjustment of the mA and kV according to patient si ze, and iterative reconstruction. Unless otherwise specified, incidental findings do not require dedicated imaging follow-up. [id number]. Oral contrast was not given which limits evaluation of bowel and appendix. COMPARISON: .May 2024 FINDINGS: Fatty liver. Cholecystectomy. Small duodenal diverticulum. Fluid within nondilated small bowel Spleen, pancreas, adrenals and kidneys appear unremarkable No evidence of diverticulitis. No adnexal mass Moderate amount stool within the colon. Post surgical changes L5-S1. Lucency L1 vertebral body probably is benign : IMPRESSION: Moderate amount stool within the colon. Fatty liver Fluid within nondilated small bowel may indicate an enteritis
[2024-06-25] MEDS ORDERED: HYDROMORPHONE HCL 1 MG/ML INJ ONE (10:05)
--- NOTE | 2024-06-25 10:20 | ER ---
Nurse's Notes [facility] [place] Name: Emilia Roman Age: 54 yrs Sex: Female : 1970 Arrival Date: 06/25/2024 Time: 07:26 Bed 14 Private MD: Rogelio Lyons Diagnosis: Type 2 diabetes mellitus with hyperglycemia;Other viral enteritis;Constipation;Other chronic pain Presentation: 06/25 07:41 Chief complaint: Left flank pain x 3 weeks. Denies urinary symptoms. Coronavirus hb screen: At this time, the client does not indicate any symptoms associated with coronavirus-19. Ebola Screen: No symptoms or risks identified at this time. Initial Sepsis Screen: Does the patient meet any 2 criteria? No. Patient's initial sepsis screen is negative. Does the patient have a suspected source of infection? No. Patient's initial sepsis screen is negative. Risk Assessment: Do you want to hurt yourself or someone else? Patient reports no desire to harm self or others. Onset of symptoms was May 2024. 07:41 Method Of Arrival: Ambulatory hb 07:41 Acuity: KENDRA 3 hb Historical: - Allergies: 07:44 No Known Allergies; hb - PMHx: 07:44 chronic back pain; Hypertension; Diabetes; Tachycardia; Hyperlipidemia; hb - PSHx: 07:44 Cholecystectomy; Appendectomy; Coronary artery bypass graft; colon surgery- 12 inches hb removed 2020; hernia repair; Ligation of fallopian tube; rotator cuff surgery- 2019; screws lower back; - Immunization history:: Adult Immunizations up to date. - Infectious Disease History:: Denies. - Social history:: Smoking status: Patient denies any tobacco usage or history of. Screenin:42 [facility] ED Fall Risk Assessment (Adult) History of falling in the last 3 months, db including since admission No falls in past 3 months (0 pts) Confusion or Disorientation No (0 pts) Intoxicated or Sedated No (0 pts) Impaired Gait No (0 pts) Mobility Assist Device Used No (0 pt) Altered Elimination No (0 pt) Score/Fall Risk Level 0 - 2 = Low Risk Oriented to surroundings, Maintained a safe environment. Abuse screen: Denies threats or abuse. Denies injuries from another. Nutritional screening: No deficits noted. Tuberculosis screening: No symptoms or risk factors identified. Assessment: 07:51 Reassessment: PT AMBULATORY TO RESTROOM. db 09:11 Reassessment: Patient appears in no apparent distress at this time. Patient and/or db family updated on plan of care and expected duration. Pain level reassessed. Patient is alert, oriented x 3, equal unlabored respirations, skin warm/dry/pink. General: Appears in no apparent distress. uncomfortable, Behavior is calm, cooperative. Pain: Complains of pain in left low back. Neuro: Level of Consciousness is awake, alert, obeys commands, Oriented to person, place, time, situation. Respiratory: Airway is patent Respiratory effort is even, unlabored, Respiratory pattern is regular, symmetrical. 10:00 Reassessment: Patient appears in no apparent distress at this time. Patient and/or db family updated on plan of care and expected duration. Pain level reassessed. Patient is alert, oriented x 3, equal unlabored respirations, skin warm/dry/pink. 11:25 Reassessment: Patient appears in no apparent distress at this time. Patient and/or db family updated on plan of care and expected duration. Pain level reassessed. Patient is alert, oriented x 3, equal unlabored respirations, skin warm/dry/pink. PATIENT DISCHARGED. PENDING PHYSICIAN TO SPEAK WITH PT. 11:25 Reassessment: Patient states feeling better. Patient states symptoms have improved. db Vital Signs: 07:41 BP 171 / 87; Pulse 100; Resp 16; Temp 97.5(O); Pulse Ox 97% on R/A; Weight 79.83 kg; hb Height 5 ft. 9 in. ; Pain 8/10; 08:30 BP 127 / 83; Pulse 91; Resp 16; Pulse Ox 95% ; db 09:45 BP 115 / 82; Pulse 94; Resp 16; Pulse Ox 97% ; db 10:30 BP 137 / 78; Pulse 97; Resp 18; Pulse Ox 95% ; db 07:41 Body Mass Index 25.99 (79.83 kg, 175.26 cm) hb 07:41 Pain Scale: Adult hb ED Course: 07:30 Patient arrived in ED. gm2 07:30 Rogelio Lyons MD is Private Physician. gm2 07:30 Harjinder Russo MD is Attending Physician. suzan 07:43 Triage completed. hb 07:45 Arm band placed on. hb 07:50 Leeann Hutton RN is Primary Nurse. db 08:03 EKG done, by ED staff, reviewed by Harjinder Russo MD. em1 08:05 Initial lab(s) drawn, by me, sent to lab. Missed attempt(s): 20 gauge in right forearm. db Bleeding controlled, band aid applied, catheter tip intact. 08:20 Initial lab(s) drawn, by me, sent to lab. Inserted saline lock: 20 gauge in left em1 forearm, using aseptic technique. Blood collected. Flushed with 10 mL NS. 09:[address] via wheelchair. db 09:26 CT Chest For PE Angio In Process Unspecified. EDMS 09:26 CT Abd/Pelvis - IV Contrast Only In Process Unspecified. EDMS 10:44 Patient has correct armband on for positive identification. Bed in low position. Call db light in reach. Side rails up X 1. Client placed on continuous cardiac and pulse oximetry monitoring. NIBP monitoring applied. monitor technician on. Pulse ox on. NIBP on. Warm blanket given. 11:26 Provided Education on: DISCHARGE AND FOLLOWUP, [employer]ER PRESCRIPTIONS. db 11:26 No provider procedures requiring assistance completed. IV discontinued, intact, db bleeding controlled, No redness/swelling at site. Administered Medications: 08:32 Drug: morphine IVP or IV 4 mg IVP once over 4 mins Route: IVP; Infused Over: 4 mins; db Site: left forearm; 11:23 Follow up: Response: No adverse reaction db 08:32 Drug: Ketorolac IVP 30 mg IVP once Route: IVP; Site: left forearm; db 11:23 Follow up: Response: No adverse reaction db 08:35 Drug: Ondansetron IVP 4 mg IVP once; over 2 minutes Route: IVP; Site: left forearm; db 11:23 Follow up: Response: No adverse reaction db 08:35 Drug: NS 0.9% IV 1000 ml IV at 1 bolus Per protocol; to be given as a bolus over 60 db minutes Route: IV; Rate: 1 bolus; Site: left forearm; 10:05 Follow up: Response: No adverse reaction; IV Status: Completed infusion; IV Intake: db 1000ml 09:40 Drug: Insulin Regular Human IVP 10 units IVP once {Co-Signature: tutu (Lala Blanco RN).} Route: IVP; Site: left forearm; 11:20 Follow up: Response: No adverse reaction db 11:22 Follow up: Response: No adverse reaction; Blood pressure is lowered db 09:40 Drug: Insulin Regular Human Sub-Q 10 units Sub-Q once {Co-Signature: tutu (shana Blanco RN).} Route: Sub-Q; Site: right upper arm; 11:22 Follow up: Response: No adverse reaction; Blood pressure is lowered db 09:40 Drug: NS 0.9% IV 1000 ml IV at 1000 ml once; to be given as a bolus over 60 minutes db Route: IV; Rate: 1000 ml; Site: left forearm; 11:22 Follow up: Response: No adverse reaction; IV Status: Completed infusion; IV Intake: db 1000ml 09:51 Drug: Insulin Glargine Sub-Q 30 units Sub-Q once {Co-Signature: tutu (Lala Blanco RN).} Route: Sub-Q; Site: right upper abdomen; 11:22 Follow up: Response: No adverse reaction; Blood pressure is lowered db 10:08 Drug: HYDROmorphone IVP 1 mg IVP once Route: IVP; Site: left forearm; db 10:15 Follow up: Response: No adverse reaction; Pain is decreased db 10:45 Follow up: Response: Pain is decreased db Medication: 11:28 VIS not applicable for this client. db Point of Care Testing: Blood Glucose: 10:44 Blood Glucose: 318 mg/dL; db Ranges: Intake: 10:05 IV: 1000ml; Total: 1000ml. db 11:22 IV: 1000ml; Total: 2000ml. db Outcome: 10:20 Discharge ordered by MD. mares 11:26 Discharged to home ambulatory, with family, db 11:26 Condition: stable 11:26 Discharge instructions given to patient, Instructed on discharge instructions, follow up and referral plans. Prescriptions given X 4, 11:28 Patient left the ED. db Signatures: Dispatcher [employer] Harjinder Frank MD MD cha Martinez, Eric em1 Lala Blanco RN RN hb Leeann Hutton RN RN db Fanta Jin gm2 Lala Blanco RN
--- NOTE | 2024-06-25 10:20 | EDPHYS ---
Physician Documentation [facility] Name: Emilia Roman Age: 54 yrs Sex: Female : 1970 Arrival Date: 06/25/2024 Time: 07:26 Bed 14 Private MD: Rogelio Lyons ED Physician Harjinder Russo HPI: 06/25 08:18 This 54 yrs old Female presents to ER via Ambulatory with complaints of Flank suzan Pain. 08:18 The patient complains of pain in the left low back and left mid back. The pain radiates suzan to the left low back and left mid back. Onset: The symptoms/episode began/occurred 2 day(s) ago. Modifying factors: The symptoms are alleviated by remaining still. Associated signs and symptoms: The patient has no apparent associated signs or symptoms. The patient has not experienced similar symptoms in the past. Historical: - Allergies: 07:44 No Known Allergies; hb - PMHx: 07:44 chronic back pain; Hypertension; Diabetes; Tachycardia; Hyperlipidemia; hb - PSHx: 07:44 Cholecystectomy; Appendectomy; Coronary artery bypass graft; colon surgery- 12 inches hb removed 2020; hernia repair; Ligation of fallopian tube; rotator cuff surgery- 2019; screws lower back; - Immunization history:: Adult Immunizations up to date. - Infectious Disease History:: Denies. - Social history:: Smoking status: Patient denies any tobacco usage or history of. ROS: 08:19 Constitutional: Negative for fever, chills, and weight loss, Eyes: Negative for injury, suzan pain, redness, and discharge, ENT: Negative for injury, pain, and discharge, Neck: Negative for injury, pain, and swelling, Cardiovascular: Negative for chest pain, palpitations, and edema, Respiratory: Negative for shortness of breath, cough, wheezing, and pleuritic chest pain, : Negative for injury, bleeding, discharge, and swelling, MS/Extremity: Negative for injury and deformity, Skin: Negative for injury, rash, and discoloration, Neuro: Negative for headache, weakness, numbness, tingling, and seizure, 08:19 Abdomen/GI: Positive for abdominal pain, nausea, 08:19 Back: Positive for decreased range of motion, pain at rest, pain with movement, flank pain, radiated pain, of the left low back and left mid back, Exam: 08:20 Constitutional: This is a well developed, well nourished patient who is awake, alert, suzan and in no acute distress. Head/Face: Normocephalic, atraumatic. Eyes: Pupils equal round and reactive to light, extra-ocular motions intact. Lids and lashes normal. Conjunctiva and sclera are non-icteric and not injected. Cornea within normal limits. Periorbital areas with no swelling, redness, or edema. ENT: Nares patent. No nasal discharge, no septal abnormalities noted. Tympanic membranes are normal and external auditory canals are clear. Oropharynx with no redness, swelling, or masses, exudates, or evidence of obstruction, uvula midline. Mucous membranes moist. Neck: Trachea midline, no thyromegaly or masses palpated, and no cervical lymphadenopathy. Supple, full range of motion without nuchal rigidity, or vertebral point tenderness. No Meningismus. Chest/axilla: Normal chest wall appearance and motion. Nontender with no deformity. No lesions are appreciated. Cardiovascular: Regular rate and rhythm with a normal S1 and S2. No gallops, murmurs, or rubs. Normal PMI, no JVD. No pulse deficits. Respiratory: Lungs have equal breath sounds bilaterally, clear to auscultation and percussion. No rales, rhonchi or wheezes noted. No increased work of breathing, no retractions or nasal flaring. Skin: Warm, dry with normal turgor. Normal color with no rashes, no lesions, and no evidence of cellulitis. MS/ Extremity: Pulses equal, no cyanosis. Neurovascular intact. Full, normal range of motion., bilateral aka Neuro: Awake and alert, GCS 15, oriented to person, place, time, and situation. Cranial nerves II-XII grossly intact. Motor strength 5/5 in all extremities. Sensory grossly intact. Cerebellar exam normal. Normal gait. Psych: Awake, alert, with orientation to person, place and time. Behavior, mood, and affect are within normal limits. 08:20 ECG was reviewed by the Attending Physician. 08:20 Abdomen/GI: Inspection: abdomen appears normal, Bowel sounds: active, Palpation: mild abdominal tenderness, moderate abdominal tenderness, in the posterior aspect of left lateral abdomen, anterior aspect of left lateral abdomen, left upper quadrant and left lower quadrant, Liver: no appreciated palpable abnormalities, Hernia: not appreciated, 08:20 Back: pain, that is moderate, of the left low back and left mid back, ROM is painful, with flexion, with extension, normal spinal alignment noted, CVA tenderness, that is mild, vertebral tenderness, is not appreciated, Vital Signs: 07:41 BP 171 / 87; Pulse 100; Resp 16; Temp 97.5(O); Pulse Ox 97% on R/A; Weight 79.83 kg; hb Height 5 ft. 9 in. ; Pain 8/10; 08:30 BP 127 / 83; Pulse 91; Resp 16; Pulse Ox 95% ; db 09:45 BP 115 / 82; Pulse 94; Resp 16; Pulse Ox 97% ; db 10:30 BP 137 / 78; Pulse 97; Resp 18; Pulse Ox 95% ; db 07:41 Body Mass Index 25.99 (79.83 kg, 175.26 cm) hb 07:41 Pain Scale: Adult hb MDM: 07:30 Medical Screening Exam initiated suzan 08:22 Differential diagnosis: abnormal EKG, acute myocardial infarction, acute pericarditis, suzan anxiety, coronary artery disease chest wall pain, nephrolithiasis, pyelonephritis, UTI, esophagitis, gastritis, pancreatitis, peptic ulcer disease, pericarditis, pneumonia, pneumothorax, pulmonary embolus, stable angina, unstable angina. HEART Score: History: Slightly Suspicious (0), ECG: Normal (0), Age: > 45 and < 65 years (1), Risk Factors: > or = 3 Risk factors for atherosclerotic disease (2), [Hypertension] [DM] Troponin:. The patient was not given aspirin in the Emergency Department. Not indicated due to patient's past medical history. PATRICIO Risk Score: 1 - Three or more CAD risk factors, TOTAL SCORE = 1. Data reviewed: vital signs, nurses notes, lab test result(s), EKG, radiologic studies, CT scan, plain films. Consideration of Admission/Observation Escalation of care including admission/observation considered. I considered the following discharge prescriptions or medication management in the emergency department Medications were administered in the Emergency Department. See MAR. Independent interpretation of the following test(s) in the Emergency Department EKG: See my EKG interpretation above. Test considered but Not performed: MRI: no mri spine. Historians other than the Patient: pt well informed. Care significantly affected by the following chronic conditions: Diabetes, Hypertension, Obesity, chronic pain, hyperlipidemia. 06/25 07:31 Order name: CBC with Diff; Complete Time: 09:16 [facility] 06/25 07:31 Order name: CMP; Complete Time: 09:16 [facility] 06/25 07:31 Order name: Lipase; Complete Time: 09:16 [facility] 06/25 07:31 Order name: Test, Urine; Complete Time: 09:16 [facility] 06/25 07:31 Order name: Urinalysis w/ reflexes; Complete Time: 09:16 [facility] 06/25 07:49 Order name: Troponin High Sensitivity; Complete Time: 09:16 [facility] 06/25 10:56 Order name: Glucose, Ancillary Testing EDMS 06/25 07:49 Order name: CT Chest For PE Angio; Complete Time: 09:57 [facility] 06/25 07:49 Order name: CT Abd/Pelvis - IV Contrast Only; Complete Time: 10:18 [facility] 06/25 07:49 Order name: EKG; Complete Time: 07:50 [facility] 06/25 07:31 Order name: IV Saline Lock; Complete Time: 08:20 [facility] 06/25 07:31 Order name: Labs collected and sent; Complete Time: 08:20 [facility] 06/25 07:49 Order name: EKG - Nurse/Tech; Complete Time: 08:03 [facility] EC:20 Rate is 95 beats/min. Rhythm is regular. QRS [place] is Normal. [place] interval is normal. QRS suzan interval is normal. QT interval is normal. No Q waves. T waves are Normal. No ST changes noted. Clinical impression: Normal ECG and No evidence of ischemia. Interpreted by me. Reviewed by me. Administered Medications: 08:32 Drug: morphine IVP or IV 4 mg IVP once over 4 mins Route: IVP; Infused Over: 4 mins; db Site: left forearm; 11:23 Follow up: Response: No adverse reaction db 08:32 Drug: Ketorolac IVP 30 mg IVP once Route: IVP; Site: left forearm; db 11:23 Follow up: Response: No adverse reaction db 08:35 Drug: Ondansetron IVP 4 mg IVP once; over 2 minutes Route: IVP; Site: left forearm; db 11:23 Follow up: Response: No adverse reaction db 08:35 Drug: NS 0.9% IV 1000 ml IV at 1 bolus Per protocol; to be given as a bolus over 60 db minutes Route: IV; Rate: 1 bolus; Site: left forearm; 10:05 Follow up: Response: No adverse reaction; IV Status: Completed infusion; IV Intake: db 1000ml 09:40 Drug: Insulin Regular Human IVP 10 units IVP once {Co-Signature: hb (Lala Blanco db RN).} Route: IVP; Site: left forearm; 11:20 Follow up: Response: No adverse reaction db 11:22 Follow up: Response: No adverse reaction; Blood pressure is lowered db 09:40 Drug: Insulin Regular Human Sub-Q 10 units Sub-Q once {Co-Signature: hb (shana Blanco Lala RN).} Route: Sub-Q; Site: right upper arm; 11:22 Follow up: Response: No adverse reaction; Blood pressure is lowered db 09:40 Drug: NS 0.9% IV 1000 ml IV at 1000 ml once; to be given as a bolus over 60 minutes db Route: IV; Rate: 1000 ml; Site: left forearm; 11:22 Follow up: Response: No adverse reaction; IV Status: Completed infusion; IV Intake: db 1000ml 09:51 Drug: Insulin Glargine Sub-Q 30 units Sub-Q once {Co-Signature: hb (Lala Blanco db RN).} Route: Sub-Q; Site: right upper abdomen; 11:22 Follow up: Response: No adverse reaction; Blood pressure is lowered db 10:08 Drug: HYDROmorphone IVP 1 mg IVP once Route: IVP; Site: left forearm; db 10:15 Follow up: Response: No adverse reaction; Pain is decreased db 10:45 Follow up: Response: Pain is decreased db Point of Care Testing: Blood Glucose: 10:44 Blood Glucose: 318 mg/dL; db Ranges: Critical Glucose Levels:Adult <50 mg/dl or >400 mg/dl <40 mg/dl or >180 mg/dl Disposition Summary: 06/25/24 10:20 Discharge Ordered Notes: Location: Home suzan Problem: new suzan Symptoms: have improved suzan Condition: Stable suzan Diagnosis - Type 2 diabetes mellitus with hyperglycemia suzan - Other viral enteritis suzan - Constipation suzan - Other chronic pain suzan Followup: suzan - With: Private Physician - When: 2 - 3 days - Reason: Recheck today's complaints, Continuance of care, Re-evaluation by your physician Discharge Instructions: - Discharge Summary Sheet suzan - Chronic Back Pain suzan - Constipation, Adult suzan - High-Fiber Eating Plan suzan - Hyperglycemia suzan - Constipation, Adult, [id number] suzan - Chronic Back Pain, [id number] suzan - Blood Glucose Monitoring, Adult suzan - Diabetes Mellitus and Nutrition, Adult suzan - Hyperglycemia, [id number] suzan - Flank Pain, Adult, [id number] [facility] Forms: - Medication Reconciliation Form [facility] - Antibiotic Education suzan - Prescription Opioid Use suzan - Patient Portal Instructions [facility] - Leadership Thank You Letter [facility] Prescriptions: - Miralax 17 gram Oral powder in packet - take 1 packet ORAL route daily for 14 days as needed; 14 packet; Refills: 0, [facility] Product Selection Permitted - ondansetron 4 mg Oral Tablet,disintegrating - take 1 tablet ORAL route every 8 hours for 5 days prn; 20 tablet; Refills: 0, [facility] Product Selection Permitted - promethazine 25 mg Oral tablet - take 1 tablet ORAL route every 6 hours As needed as needed for intractable n/v; suzan 15 tablet; Refills: 0, Product Selection Permitted - dicyclomine 20 mg Oral tablet - take 1 tablet ORAL route 4 times per day; 28 tablet; Refills: 0, Product [facility] Selection Permitted Signatures: Dispatcher [employer] EDHarjinder Crane MD MD [facility] Lala Blanco, MARCIO RN Leeann Hutton RN RN Lala Blanco RN Corrections: (The following items were deleted from the chart) 07:31 07:31 Stone Protocol+CT.RAD.BRZ ordered. EDMS EDMS 07:49 07:49 Abdomen Pelvis W Con+CT.RAD.BRZ ordered. EDMS EDMS
[2024-06-25 11:51] VITALS: TEMP 97.5
[2024-06-25 11:54] VITALS: BP 137/78; O2SAT 95
--- NOTE | 2024-06-27 11:06 | EKG ---
Test Date: 2024-06-25 Test Time: 08:00:33 [employer]: CHOCO MEASUREMENT RESULTS: Intervals: Rate: 95 [place]: 152 QRSD: 88 QT: 358 QTc: 449 [place]: P: 50 KS: 152 QRS: 5 T: 79 INTERPRETIVE STATEMENTS: Normal sinus rhythm Normal ECG Compared to ECG 01/12/2024 20:52:43 Left-axis deviation no longer present Electronically Signed On 06-27-24 10:59:49 CDT by Avni Cain
== END 2024-06-25 11:28 | disposition home or self-care (01) ==
LOC: ER 07:26
DX: E11.65 Type 2 diabetes mellitus with hyperglycemia (principal); A08.39 Other viral enteritis; K59.00 Constipation, unspecified; G89.29 Other chronic pain; Z95.1 Presence of aortocoronary bypass graft
CPT/HCPCS: 96361; 93005; 85025; 36415; 81025; 82947; 81003; 84484; 83690; 80053; 71275; 74177; 96375; 96372; 96374; 99285; Q9967; J1171; J2405; J1815; J7030 ×2